=== PATIENT | male | born 1935 | race Caucasian/White ===

== ENCOUNTER 2017-11-08 05:04 | Emergency (ER) | payer MEDICARE, OTHER ==
[2017-11-08 05:24] VITALS: TEMP 97.5
--- NOTE | 2017-11-08 05:41 | ED PDOC ---
HPI: Male Pain Time Seen by Provider: 11/08/17 05:19 Chief Complaint (Nursing): Male Genitourinary Chief Complaint (Provider): Urinary Retention History Per: Patient History/Exam Limitations: no limitations Onset/Duration Of Symptoms: Days (x2) Current Symptoms Are (Timing): Still Present Additional Complaint(s): 82 y/o Italian male with a past medical history of HTN, who presents to the ED complaining of urinary retention x2 days. Patient states he has been unable to urinate since yesterday afternoon. Says he was only able to produce a few drops at 11pm. Also states he has been constipated for 3 days and unable to have a bowel movement. Reports a sense of urinary urgency and distention to his lower abdomen. Denies vomiting, diarrhea, cough, shortness of breath, or chest pain. Past Medical History Reviewed: Historical Data, Nursing Documentation, Vital Signs Vital Signs: Last Vital Signs Temp 97.5 F L 11/08/17 05:18 Pulse 85 11/08/17 05:18 Resp 18 11/08/17 05:18 BP 218/119 H 11/08/17 05:18 Pulse Ox 99 11/08/17 05:18 - Medical History PMH: HTN Denies: Diabetes - Surgical History Surgical History: Appendectomy - Family History Family History: States: No Known Family Hx - Social History Current smoker - smoking cessation education provided: No Alcohol: None Drugs: Denies - Home Medications Home Medications: Ambulatory Orders Medication Instructions Recorded Methylprednisolone [Medrol Dose 4 mg PO DAILY #21 tab 11/03/15 Pack (21 tabs)] diaZEpam [Valium] 5 mg PO Q8 #10 tab 11/03/15 Docusate Sodium [Colace] 100 mg PO BID #30 capsule 11/08/17 - Allergies Allergies/Adverse Reactions: Allergies Allergy/AdvReac Type Severity Reaction Status Date / Time No Known Allergies Allergy Verified 11/08/17 05:18 Review of Systems ROS Statement: Except As Marked, All Systems Reviewed And Found Negative Cardiovascular: Negative for: Chest Pain Respiratory: Negative for: Cough, Shortness of Breath Gastrointestinal: Positive for: Abdominal Pain, Constipation. Negative for: Vomiting, Diarrhea Genitourinary Male: Positive for: Other (urinary retention) Physical Exam - Reviewed Nursing Documentation Reviewed: Yes Vital Signs Reviewed: Yes - Physical Exam Appears: Positive for: Non-toxic, No Acute Distress, Uncomfortable Head Exam: Positive for: ATRAUMATIC, NORMAL INSPECTION, NORMOCEPHALIC Skin: Positive for: Normal Color, Warm, Dry. Negative for: Rash Eye Exam: Positive for: EOMI, Normal appearance, PERRL Neck: Positive for: Normal, Painless ROM, Supple Cardiovascular/Chest: Positive for: Regular Rate, Rhythm. Negative for: Murmur Respiratory: Positive for: Normal Breath Sounds. Negative for: Respiratory Distress Gastrointestinal/Abdominal: Positive for: Tenderness (superpubic), Distended ( superpubic) Back: Positive for: Normal Inspection. Negative for: L CVA Tenderness, R CVA Tenderness, Vertebral Tenderness Extremity: Positive for: Normal ROM. Negative for: Pedal Edema, Deformity Neurologic/Psych: Positive for: Alert, Oriented. Negative for: Motor/Sensory Deficits - Laboratory Results Result Diagrams: 11/08/17 05:41 11/08/17 05:41 - ECG O2 Sat by Pulse Oximetry: 99 (RA) Pulse Ox Interpretation: Normal Medical Decision Making Medical Decision Making: Time: 05:25 Initial Impression: 82 y/o male with urinary retention in setting of constipation Initial Plan: --EKG --CMP --Urine dipstick --CBC w/ differential --PTT/PT --X-Ray Abdomen w/ Chest --Heplock insertion --Jackson catheter --Urinalysis --Reevaluation Time: 07:00 Patient signed out to Dr. Balderrama pending labs and reevaluation. Scribe Attestation: Documented by Xu Ramsey, acting as a scribe for Vladimir Liu MD. Provider Scribe Attestation: All medical record entries made by the Scribe were at my direction and personally dictated by me. I have reviewed the chart and agree that the record accurately reflects my personal performance of the history, physical exam, medical decision making, and the department course for this patient. I have also personally directed, reviewed, and agree with the discharge instructions and disposition. Disposition - Clinical Impression Clinical Impression: Constipation, Urinary retention - Patient ED Disposition Is Patient to be Admitted: Transfer of Care - Disposition Referrals: Caroline Shearer MD [Medical Doctor] - Disposition: Transfer of Care Disposition Time: 07:00 Condition: IMPROVED Additional Instructions: Follow up with urologist within 5 days. Take your medications as home. Prescriptions: Docusate Sodium [Colace] 100 mg PO BID #30 capsule Instructions: Constipation, Adult (DC), Urinary Retention (DC) Patient Signed Over To: Camryn Balderrama Handoff Comments: pending labs and reeval
[2017-11-08 06:13] LABS: ALB/GLOB RATIO 1.2 (1.0-2.1); ALBUMIN 4.5 g/dL (3.5-5.0); ALT/SGPT 30 U/L (21-72); AST/SGOT 32 U/L (17-59); BLOOD UREA NITROGEN 22 mg/dl (9-20); CALCIUM 9.5 mg/dL (8.4-10.2); GFR AFRICAN-AMERICAN > 60; GFR NON-AFRICAN AMERICAN 58
[2017-11-08 06:17] LABS: URINE BACTERIA RARE (<OCC); URINE BILIRUBIN NEGATIVE (NEGATIVE); URINE BLOOD MODERATE (NEGATIVE); URINE CLARITY CLEAR (Clear); URINE COLOR YELLOW (YELLOW); URINE GLUCOSE (UA) NEG (Normal); URINE LEUKOCYTE ESTERASE NEG Leu/uL (Negative); URINE PROTEIN 30 mg/dL (NEGATIVE); URINE UROBILINOGEN 0.2-1.0 mg/dL (0.2-1.0)
[2017-11-08 06:18] LABS: PARTIAL THROMBOPLASTIN TIME 30.1 Seconds (25.6-37.1); PROTHROMBIN TIME 11.6 Seconds (9.8-13.1)
[2017-11-08 06:44] LABS: BASO % 0.4 % (0.0-2.0); EOS % 0.1 % (0.0-4.0); HEMOGLOBIN 12.4 g/dL (12.0-18.0); LYMPH # 0.8 K/uL (1.0-4.3); LYMPH % 8.7 % (20.0-40.0); MEAN CELL VOLUME 110.6 fl (80.0-94.0); MEAN CORPUSCULAR HGB CONC 35.3 g/dL (33.0-37.0); MEAN PLATELET VOLUME 9.9 fl (7.2-11.7); MONO # 0.6 K/uL (0.0-0.8); MONO % 5.7 % (0.0-10.0); NEUT # 8.2 K/uL (1.8-7.0); NEUT % 85.1 % (50.0-75.0); NRBC % 0.1 % (0.0-0.0); PLATELET COUNT 178 K/uL (130-400); RBC 3.19 Mil/uL (4.40-5.90); RED CELL DISTRIBUTION WIDTH 14.5 % (11.5-14.5); WHITE BLOOD COUNT 9.7 K/uL (4.8-10.8)
--- NOTE | 2017-11-08 07:19 | ED PDOC ---
- Laboratory Results Result Diagrams: 11/08/17 05:41 11/08/17 05:41 - ECG O2 Sat by Pulse Oximetry: 98 (RA) Pulse Ox Interpretation: Normal Medical Decision Making Medical Decision Making: Time: 7:00 Patient endorsed to me by Dr. Vladimir Liu at this time, pending labs, x-ray, and reevaluation. Time: 09:08 EXAM: Abdomen X-Ray FINDINGS: BOWEL: Two frontal supine views of the abdomen were performed. There is no evidence of bowel dilatation to suggest bowel obstruction. Residual scattered areas of fecal material are identified. Surgical clips are seen in the right lower quadrant. Degenerative changes are seen in the spine. No obvious free air or bowel wall thickening is noted. Lung bases are unremarkable. BONES: See above OTHER FINDINGS: None. IMPRESSION: No evidence of bowel obstruction. 12:00pm Patient had a large bowel movement after enema given in the ED. Patient stable for discharge home. Given prescription for Colace and referral to urologist. Counseled regarding diagnoses and the need for follow up with urology within 5 days. Patient is agreeable and understanding of discharge plan. Scribe Attestation: Documented by Rhiannon Danielle, acting as a scribe for Camryn Balderrama MD Provider Scribe Attestation: All medical record entries made by the Scribe were at my direction and personally dictated by me. I have reviewed the chart and agree that the record accurately reflects my personal performance of the history, physical exam, medical decision making, and the department course for this patient. I have also personally directed, reviewed, and agree with the discharge instructions and disposition. Disposition Counseled Patient/Family Regarding: Studies Performed, Diagnosis, Need For Followup - Clinical Impression Clinical Impression: Constipation, Urinary retention - POA Present On Arrival: None - Disposition Referrals: Caroline Shearer MD [Medical Doctor] - Disposition: Routine/Home Disposition Time: 12:00 Condition: GOOD Additional Instructions: Follow up with urologist within 5 days. Take your medications as home. Prescriptions: Docusate Sodium [Colace] 100 mg PO BID #30 capsule Instructions: Constipation, Adult (DC), Urinary Retention (DC)
[2017-11-08 07:40] VITALS: RESP 17
--- NOTE | 2017-11-08 09:07 | CARD ---
APPROVED REPORT EKG Measurement Heart [id number] CT [id number] <Conclusion> Sinus tachycardia with premature supraventricular complexes Incomplete right bundle branch block Borderline ECG
--- NOTE | 2017-11-08 09:09 | RAD ---
HISTORY: constipation COMPARISON: No prior. FINDINGS: BOWEL: Two frontal supine views of the abdomen were performed. There is no evidence of bowel dilatation to suggest bowel obstruction. Residual scattered areas of fecal material are identified. Surgical clips are seen in the right lower quadrant. Degenerative changes are seen in the spine. No obvious free air or bowel wall thickening is noted. Lung bases are unremarkable. BONES: See above OTHER FINDINGS: None. IMPRESSION: No evidence of bowel obstruction.
[2017-11-08 11:26] VITALS: BP 142/71; PULSE 86
[2017-11-08 11:52] LABS: LYMPHOCYTE 6 % (20-50); MONOCYTE 5 % (0-10); NEUTROPHIL 89 % (42-75); PLATELET ESTIMATE NORMAL (NORMAL); TOTAL CELLS COUNTED 100
[2017-11-08 11:54] LABS: LARGE PLATELETS PRESENT
[2017-11-09 22:24] VITALS: O2SAT 99
== END 2017-11-08 12:15 | disposition home or self-care (01) ==
LOC: H.ER 05:04
DX: K59.00 Constipation, unspecified (principal); R33.9 Retention of urine, unspecified; I10 Essential (primary) hypertension

== ENCOUNTER 2018-07-06 08:28 | Inpatient (IN) | payer MEDICARE, OTHER ==
--- NOTE | 2018-07-06 08:53 | ED PDOC ---
HPI: Abdomen Time Seen by Provider: 07/06/18 08:42 Chief Complaint (Nursing): Abdominal Pain History Per: Patient Onset/Duration Of Symptoms: Days (1) Current Symptoms Are (Timing): Still Present Severity: Mild Location Of Pain/Discomfort: RLQ Quality Of Discomfort: Unable To Describe Associated Symptoms: denies: Fever, Nausea, Vomiting, Diarrhea, Urinary Symptoms Exacerbating Factors: None Alleviating Factors: None Additional Complaint(s): RLQ abd pain since last night. Was constipated, took Colace, has had BM but still feels need to go. Denies fever, vomiting or bloody stool. Denies urinary sxs. Past Medical History Vital Signs: Last Vital Signs Temp 97 F L 07/06/18 08:36 Pulse 86 07/06/18 08:36 Resp BP 178/97 H 07/06/18 08:36 Pulse Ox 95 07/06/18 08:36 - Medical History PMH: HTN Denies: Diabetes - Surgical History Surgical History: Appendectomy - Family History Family History: States: Unknown Family Hx - Allergies Allergies/Adverse Reactions: Allergies Allergy/AdvReac Type Severity Reaction Status Date / Time No Known Allergies Allergy Verified 07/06/18 08:40 Review of Systems ROS Statement: Except As Marked, All Systems Reviewed And Found Negative Constitutional: Negative for: Fever Gastrointestinal: Positive for: Abdominal Pain Physical Exam - Reviewed Nursing Documentation Reviewed: Yes Vital Signs Reviewed: Yes - Physical Exam Appears: Positive for: Non-toxic, No Acute Distress Head Exam: Positive for: ATRAUMATIC, NORMAL INSPECTION, NORMOCEPHALIC Skin: Positive for: Normal Color, Warm, DRY Eye Exam: Positive for: EOMI, Normal appearance, PERRL ENT: Positive for: Normal ENT Inspection Neck: Positive for: Normal, Painless ROM Cardiovascular/Chest: Positive for: Regular Rate, Rhythm Respiratory: Positive for: CNT, Normal Breath Sounds Gastrointestinal/Abdominal: Positive for: Soft, Tenderness (RLQ) Back: Positive for: Normal Inspection Extremity: Positive for: Normal ROM Neurologic/Psych: Positive for: Alert, Oriented - Laboratory Results Result Diagrams: 07/06/18 08:55 07/06/18 08:55 - ECG O2 Sat by Pulse Oximetry: 95 Disposition - Clinical Impression Clinical Impression: Renal cyst, Hydronephrosis - Patient ED Disposition Is Patient to be Admitted: Yes - Disposition Disposition Time: 12:43 Condition: FAIR Forms: [employer] (M[place]itanian) - Pt Status Changed To: Hospital Disposition Of: Observation - POA Present On Arrival: None
[2018-07-06 09:19] LABS: BASO % 0.2 % (0.0-2.0); HEMOGLOBIN 12.2 g/dL (12.0-18.0); LYMPH # 0.5 K/uL (1.0-4.3); LYMPH % 3.8 % (20.0-40.0); MEAN CELL VOLUME 113.9 fl (80.0-94.0); MEAN CORPUSCULAR HEMOGLOBIN 41.1 pg (27.0-31.0); MEAN CORPUSCULAR HGB CONC 36.1 g/dL (33.0-37.0); MEAN PLATELET VOLUME 8.8 fl (7.2-11.7); MONO # 0.9 K/uL (0.0-0.8); MONO % 6.3 % (0.0-10.0); NEUT # 12.4 K/uL (1.8-7.0); NEUT % 89.7 % (50.0-75.0); NRBC % 0.1 % (0.0-0.0); PLATELET COUNT 263 K/uL (130-400); RBC 2.97 Mil/uL (4.40-5.90); RED CELL DISTRIBUTION WIDTH 14.7 % (11.5-14.5); WHITE BLOOD COUNT 13.8 K/uL (4.8-10.8)
[2018-07-06 09:20] LABS: ALB/GLOB RATIO 1.2 (1.0-2.1); ALBUMIN 4.6 g/dL (3.5-5.0); CALCIUM 9.1 mg/dL (8.4-10.2)
[2018-07-06 11:13] LABS: BANDS 1 % (0-2); LYMPHOCYTE 5 % (20-50); MONOCYTE 6 % (0-10); NEUTROPHIL 88 % (42-75); PLATELET ESTIMATE NORMAL (NORMAL); TOTAL CELLS COUNTED 100
[2018-07-06 11:17] LABS: ANISOCYTOSIS SLIGHT; HYPOCHROMIC SLIGHT; POLYCHROMIC SLIGHT
--- NOTE | 2018-07-06 11:48 | CT ---
Date of service: 07/06/2018 PROCEDURE: CT Abdomen and Pelvis without intravenous contrast HISTORY: r/o kidney stone COMPARISON: None. TECHNIQUE: CT scan of the abdomen and pelvis was performed without administration of intravenous contrast. Oral contrast was not administered. Coronal and sagittal reformatted images were obtained. . Radiation dose: Total exam DLP = 503.09 mGy-cm. This CT exam was performed using one or more of the following dose reduction techniques: Automated exposure control, adjustment of the mA and/or kV according to patient size, and/or use of iterative reconstruction technique. FINDINGS: LOWER THORAX: There is dependent atelectasis in the lung bases. Mild cardiomegaly and small pericardial effusion. LIVER: Normal in size. No intrahepatic ductal dilatation. GALLBLADDER AND BILE DUCTS: No calcified gallstones. No biliary dilatation PANCREAS: Normal in size. No ductal dilatation. SPLEEN: Normal in size. ADRENALS: Normal in size. No discrete nodule. KIDNEYS AND URETERS: Mild renal cortical atrophy. There is mild bilateral hydronephrosis and dilatation of the ureteral without obstructing stone, likely related to over distended urinary bladder. There are multiple simple cortical cysts in the right kidney, the largest in the lower pole measures 9.7 x 8.7 cm. There is a 1.4 x 1.6 cm well-circumscribed round hyperdense lesion in the upper pole of the left kidney. VASCULATURE: No aortic aneurysm. There are aortic atherosclerotic calcification present. BOWEL: There is fecalization of small bowel contents. The small bowel loops are normal in caliber. There is moderate amount of stool in the colon and fecal stasis in the rectum. No bowel dilatation or obstruction. APPENDIX: Normal appendix. PERITONEUM: No free fluid. No free air. LYMPH NODES: No enlarged lymph nodes. BLADDER: Over distended and grossly normal in appearance. REPRODUCTIVE: There is moderate enlargement of the prostate gland. BONES: No acute fracture. There is diffuse bone demineralization and multilevel degenerative changes in the spine. OTHER FINDINGS: There is a small sliding hiatal hernia. There are bilateral small fat containing inguinal hernias. IMPRESSION: 1. No acute abdominal or pelvic abnormality. 2. Constipation and fecalization of normal caliber small bowel contents likely related to chronic stasis. No bowel obstruction. 3. Mild hydronephrosis and diffuse dilatation of both ureters likely related to an over distended urinary bladder. Multiple large simple cortical cysts in the left kidney, the largest in the lower pole measures 9.7 x 0.7 cm. No evidence of nephrolithiasis or obstructive uropathy. 4. 1.4 x 1.6 cm complicated cyst in the upper pole of the left kidney likely a hemorrhagic cyst however correlation with retroperitoneal ultrasound is recommended to exclude solid renal lesion. 5. Moderate enlargement of the prostate gland. Please correlate with PSA levels. 6. Small sliding hiatal hernia.
[2018-07-06 15:55] LABS: URINE BACTERIA RARE (<OCC); URINE BILIRUBIN NEGATIVE (NEGATIVE); URINE BLOOD LARGE (NEGATIVE); URINE CLARITY SLIGHTY-CLOUDY (Clear); URINE COLOR YELLOW (YELLOW); URINE GLUCOSE (UA) NEG (Normal); URINE PROTEIN NEGATIVE (NEGATIVE); URINE UROBILINOGEN 0.2-1.0 mg/dL (0.2-1.0)
[2018-07-06 15:57] LABS: URINE LEUKOCYTE ESTERASE TRACE Leu/uL (Negative)
[2018-07-06] MEDS: Sodium Chloride 0.9% 1,000 ML IV SCH (22:13)
[2018-07-07] MEDS ORDERED: Ergocalciferol 50,000 Intl Units Cap PO SCH (07:30)
[2018-07-07] MEDS: Ciprofloxacin 400mg/200ml D5W 400 MG/200 ML BAG IVPB SCH ×2 (09:10→21:01)
[2018-07-07] MEDS: Metoprolol Succinate 50 mg XL Tab PO SCH (09:27)
--- NOTE | 2018-07-07 13:38 | CP.PCM.CON ---
History of Present Illness - History of Present Illness History of Present Illness: Neurology Consultation Note: Mr. Burciaga is an 82-year-old man with a past medical history of HTN, HLD, who is currently being treated for a UTI and was found to have confusion. When I saw the patient, he did not really know where he was, what year it is and could not recall why he is here. Review of Systems - Review of Systems Systems not reviewed;Unavailable: Altered Mental Status Past Patient History - Past Medical History & Family History Past Medical History?: Yes - Past Social History Smoking Status: Never Smoked - CARDIAC Hx Cardiac Disorders: Yes Hx Hypertension: Yes - PULMONARY Hx Respiratory Disorders: No - NEUROLOGICAL Hx Neurological Disorder: No - HEENT Hx HEENT Problems: No - RENAL Hx Chronic Kidney Disease: No - ENDOCRINE/METABOLIC Hx Endocrine Disorders: No - HEMATOLOGICAL/ONCOLOGICAL Hx Blood Disorders: No - INTEGUMENTARY Hx Dermatological Problems: No - MUSCULOSKELETAL/RHEUMATOLOGICAL Hx Musculoskeletal Disorders: No Hx Falls: Yes - GASTROINTESTINAL Hx Gastrointestinal Disorders: No - GENITOURINARY/GYNECOLOGICAL Hx Genitourinary Disorders: No - PSYCHIATRIC Hx Psychophysiologic Disorder: No - SURGICAL HISTORY Hx Surgeries: No - ANESTHESIA Hx Anesthesia: No Hx Anesthesia Reactions: No Meds Allergies/Adverse Reactions: Allergies Allergy/AdvReac Type Severity Reaction Status Date / Time No Known Allergies Allergy Verified 07/06/18 08:40 - Medications Medications: Current Medications Acetaminophen (Tylenol 325mg Tab) 650 mg PO Q6 PRN PRN Reason: Pain, moderate (4-7) Aspirin (Ecotrin) 81 mg PO DAILY [facility]ATT Ergocalciferol (Drisdol 50,000 Intl Units Cap) 1 cap PO QWK [facility]ATT Ciprofloxacin (Cipro 400mg/200ml Dsw) 400 mg in 200 mls @ 200 mls/hr IVPB Q12 [facility]ATT; Protocol Last Admin: 07/07/18 09:10 Dose: 200 mls/hr Sodium Chloride (Sodium Chloride 0.9%) 1,000 mls @ 70 mls/hr IV .[id number] MATT Stop: 07/07/18 21:43 Last Admin: 07/06/18 22:13 Dose: 70 mls/hr Ketorolac Tromethamine (Toradol) 30 mg IVP Q6 PRN PRN Reason: Pain, severe (8-10) Last Admin: 07/06/18 22:26 Dose: 30 mg Losartan Potassium (Cozaar) 100 mg PO DAILY [facility] Last Admin: 07/07/18 09:27 Dose: Not Given Metoprolol Succinate (Toprol Xl) 50 mg PO DAILY [facility] Last Admin: 07/07/18 09:27 Dose: Not Given Ondansetron HCl (Zofran Inj) 4 mg IVP Q6 PRN PRN Reason: Nausea/Vomiting Tamsulosin HCl (Flomax) 0.4 mg PO QPM [facility] Physical Exam - Constitutional Appears: Well - Head Exam Head Exam: ATRAUMATIC, NORMAL INSPECTION, NORMOCEPHALIC - Eye Exam Eye Exam: EOMI, Normal appearance, PERRL - ENT Exam ENT Exam: Mucous Membranes Moist, Normal Exam - Neck Exam Neck exam: Positive for: Normal Inspection - Respiratory Exam Respiratory Exam: Clear to Auscultation Bilateral, NORMAL BREATHING PATTERN - Cardiovascular Exam Cardiovascular Exam: REGULAR RHYTHM, +S1, +S2 - GI/Abdominal Exam GI & Abdominal Exam: Normal Bowel Sounds, Soft. absent: Tenderness - Rectal Exam Rectal Exam: Deferred - Extremities Exam Extremities exam: Positive for: normal inspection - Back Exam Back exam: NORMAL INSPECTION - Neurological Exam Neurological exam: Abnormal Gait, Alert, Altered, CN II-XII Intact, Reflexes Normal Additional comments: Confused, but pleasant. Had 0/3 immediate recall. Could not complete subtraction tasks. - Psychiatric Exam Psychiatric exam: Normal Affect, Normal Mood - Skin Skin Exam: Dry, Intact, Normal Color, Warm Results - Vital Signs Recent Vital Signs: Last Vital Signs Temp 98.6 F 07/07/18 08:58 Pulse 69 07/07/18 09:27 Resp 20 07/07/18 08:58 BP 100/48 L 07/07/18 09:27 Pulse Ox 97 07/07/18 08:58 - Labs Result Diagrams: 07/06/18 08:55 07/06/18 08:55 Labs: Laboratory Results - last 24 hr 07/06/18 07/07/18 15:41 06:00 Prostate Specific Ag 9.44 H Urine Color Yellow Urine Clarity Slighty-cloudy Urine pH 6.0 Ur Specific [place] 1.012 Urine Protein Negative Urine Glucose (UA) Neg Urine Ketones Negative Urine Blood Large Urine Nitrate Negative Urine Bilirubin Negative Urine Urobilinogen 0.2-1.0 Ur Leukocyte Esterase Trace Urine RBC (Auto) 83 H Urine Microscopic WBC 11 H Urine Bacteria Rare Assessment & Plan (1) Acute encephalopathy Assessment and Plan: This could be due to baseline dementia with superimposed toxic-metabolic encephalopathy due to UTI. I recommend treating underlying cause and outpatient work-up for dementia with neurology. Will order non-contrast CT scan of the head for evaluation of possible vascular dementia or another overt lesion. Thank you for this consultation. Status: Acute
--- NOTE | 2018-07-07 14:42 | CT ---
Date of service: 07/07/2018 PROCEDURE: CT HEAD WITHOUT CONTRAST. HISTORY: dementia COMPARISON: None available. TECHNIQUE: Axial computed tomography images were obtained through the head/brain without intravenous contrast. Radiation dose: Total exam DLP = 887.59 mGy-cm. This CT exam was performed using one or more of the following dose reduction techniques: Automated exposure control, adjustment of the mA and/or kV according to patient size, and/or use of iterative reconstruction technique. FINDINGS: HEMORRHAGE: No intracranial hemorrhage. BRAIN: There are moderate chronic microangiopathic changes. There is no mass, mass effect or abnormal extra-axial fluid collection. There is no territorial infarction. The midline sagittal structures are normal. VENTRICLES: There is moderate age-related global parenchymal volume loss and proportionate enlargement of the ventricles and cortical sulci. CALVARIUM: There is no calvarial fracture or extracranial soft tissue swelling. PARANASAL SINUSES: There is mild polypoid mucosal thickening in the right maxillary sinus and a small retention cyst/polyp in the left anterior sphenoid chamber. The remaining included paranasal sinuses are clear. MASTOID AIR CELLS: Predominantly clear. OTHER FINDINGS: None. IMPRESSION: No acute intracranial abnormality. Moderate chronic microangiopathic changes and moderate age-related global parenchymal volume loss
[2018-07-07] MEDS: Sodium Chloride 0.9% 1,000 ML IV SCH ×2 (17:08→17:10)
--- NOTE | 2018-07-07 18:17 | CP.PCM.CON ---
History of Present Illness - History of Present Illness History of Present Illness: 82 yo [place] male with pmh/o HTN, hld, was admitted with cc/o lower abdominal discomfort for few days. pt is a poor historian, unable to get much history from pt, EHR reviewed and obtained . pt denies and cp, palpiattaion, n ausea, vomitings, fever, cough, sob, no edema of legs. pt was found to have elevated bun/cr and hydronephrosis and disteneded bladder. s/p underwood cath placement and drained about 750 ml immediately last night and drained another 650 ml from last night to this am, now urine is cluody and + gross hematuria Review of Systems - Review of Systems Review of Systems: low abdominal pain and discomfort - Constitutional Constitutional: As Per HPI - EENT Eyes: As Per HPI Ears: As Per HPI Nose/Mouth/Throat: As Per HPI - Cardiovascular Cardiovascular: As Per HPI - Respiratory Respiratory: As Per HPI - Gastrointestinal Gastrointestinal: As Per HPI - Genitourinary Genitourinary: Bladder Distension Additional comments: urinary retention + - Musculoskeletal Musculoskeletal: As Per HPI - Integumentary Integumentary: As Per HPI - Neurological Neurological: As Per HPI Additional comments: confusion - Endocrine Endocrine: As Per HPI - Hematologic/Lymphatic Hematologic: As Per HPI Past Patient History - Past Medical History & Family History Past Medical History?: Yes - Past Social History Smoking Status: Never Smoked - CARDIAC Hx Cardiac Disorders: Yes Hx Hypertension: Yes - PULMONARY Hx Respiratory Disorders: No - NEUROLOGICAL Hx Neurological Disorder: No - HEENT Hx HEENT Problems: No - RENAL Hx Chronic Kidney Disease: No - ENDOCRINE/METABOLIC Hx Endocrine Disorders: No - HEMATOLOGICAL/ONCOLOGICAL Hx Blood Disorders: No - INTEGUMENTARY Hx Dermatological Problems: No - MUSCULOSKELETAL/RHEUMATOLOGICAL Hx Musculoskeletal Disorders: No Hx Falls: Yes - GASTROINTESTINAL Hx Gastrointestinal Disorders: No - GENITOURINARY/GYNECOLOGICAL Hx Genitourinary Disorders: No - PSYCHIATRIC Hx Psychophysiologic Disorder: No - SURGICAL HISTORY Hx Surgeries: No - ANESTHESIA Hx Anesthesia: No Hx Anesthesia Reactions: No Meds Allergies/Adverse Reactions: Allergies Allergy/AdvReac Type Severity Reaction Status Date / Time No Known Allergies Allergy Verified 07/06/18 08:40 - Medications Medications: Current Medications Acetaminophen (Tylenol 325mg Tab) 650 mg PO Q6 PRN PRN Reason: Pain, moderate (4-7) Aspirin (Ecotrin) 81 mg PO DAILY [facility] Last Admin: 07/07/18 17:08 Dose: 81 mg Ergocalciferol (Drisdol 50,000 Intl Units Cap) 1 cap PO QWK [facility] Ciprofloxacin (Cipro 400mg/200ml Dsw) 400 mg in 200 mls @ 200 mls/hr IVPB Q12 [facility]; Protocol Last Admin: 07/07/18 09:10 Dose: 200 mls/hr Sodium Chloride (Sodium Chloride 0.9%) 1,000 mls @ 70 mls/hr IV .[id number] [facility] Stop: 07/07/18 21:43 Last Admin: 07/07/18 17:10 Dose: 70 mls/hr Ketorolac Tromethamine (Toradol) 30 mg IVP Q6 PRN PRN Reason: Pain, severe (8-10) Last Admin: 07/06/18 22:26 Dose: 30 mg Losartan Potassium (Cozaar) 100 mg PO DAILY [facility] Last Admin: 07/07/18 09:27 Dose: Not Given Metoprolol Succinate (Toprol Xl) 50 mg PO DAILY [facility] Last Admin: 07/07/18 09:27 Dose: Not Given Ondansetron HCl (Zofran Inj) 4 mg IVP Q6 PRN PRN Reason: Nausea/Vomiting Tamsulosin HCl (Flomax) 0.4 mg PO QPM [facility] Physical Exam - Constitutional Appears: Non-toxic, No Acute Distress, Confused - Head Exam Head Exam: ATRAUMATIC, NORMAL INSPECTION - Eye Exam Eye Exam: EOMI, Normal appearance, PERRL Pupil Exam: NORMAL ACCOMODATION - ENT Exam ENT Exam: Mucous Membranes Moist - Neck Exam Neck exam: Positive for: Full Rom, Normal Inspection - Respiratory Exam Respiratory Exam: Clear to Auscultation Bilateral, NORMAL BREATHING PATTERN - Cardiovascular Exam Cardiovascular Exam: REGULAR RHYTHM, +S1, +S2 - GI/Abdominal Exam GI & Abdominal Exam: Normal Bowel Sounds, Soft - Rectal Exam Rectal Exam: Deferred - Neurological Exam Neurological exam: Alert, CN II-XII Intact, Oriented x3 Results - Vital Signs Recent Vital Signs: Last Vital Signs Temp 98 F 07/07/18 16:20 Pulse 66 07/07/18 16:20 Resp 20 07/07/18 16:20 BP 93/51 L 07/07/18 16:20 Pulse Ox 99 07/07/18 16:20 - Labs Result Diagrams: 07/06/18 08:55 07/06/18 08:55 Labs: Laboratory Results - last 24 hr 07/07/18 06:00 Prostate Specific Ag 9.44 H - Imaging and Cardiology US - abdomen Status: Report reviewed by me CT scan - head Status: Report reviewed by me Assessment & Plan - Assessment and Plan (Free Text) Assessment: 82 yo [place] male with pmh/o Hypertension, HLD ? demntia was admitted with cc/o lower abd. discomfort/ pain with elevated bun/cr b/l hydroureteronephrosis, , bladder distention,menlarged prostate 1. B/L hydroureteronephrosis , most likley sec to bladder out let obstruction 2. Enlarged prostate, r/o BPH r/o prostate ca 3. R/o UTI check urine c/s urology consult , may need prostate bx and cystoscopy may need CBI c/w flomax c/w ivf 1/2 ns at 70-80 ml/hr check cbc, bmp in am Plan: as above
[2018-07-08 07:04] LABS: HEMOGLOBIN 8.9 g/dL (12.0-18.0); MEAN CELL VOLUME 110.1 fl (80.0-94.0); MEAN CORPUSCULAR HGB CONC 34.5 g/dL (33.0-37.0); RBC 2.35 Mil/uL (4.40-5.90); RED CELL DISTRIBUTION WIDTH 15.1 % (11.5-14.5); WHITE BLOOD COUNT 7.4 K/uL (4.8-10.8)
[2018-07-08] MEDS: Ciprofloxacin 400mg/200ml D5W 400 MG/200 ML BAG IVPB SCH ×2 (09:02→21:30)
[2018-07-08] MEDS: Metoprolol Succinate 50 mg XL Tab PO SCH (09:02)
--- NOTE | 2018-07-08 12:12 | CP.PCM.PN ---
Subjective - Date & Time of Evaluation Date of Evaluation: 07/08/18 Time of Evaluation: 12:12 - Subjective Subjective: pt is not in acute distress, no abd. pain, urine is clearing up no cp,no palpiatation, no nausea, no vomitings Objective - Vital Signs/Intake and Output Vital Signs (last 24 hours): Temp Pulse Resp BP Pulse Ox 98.3 F 67 19 115/61 99 07/08/18 08:03 07/08/18 09:02 07/08/18 08:03 07/08/18 09:02 07/08/18 08:03 Intake and Output: 07/08/18 07/08/18 06:59 18:59 Output Total 300 Balance -300 - Medications Medications: Current Medications Acetaminophen (Tylenol 325mg Tab) 650 mg PO Q6 PRN PRN Reason: Pain, moderate (4-7) Aspirin (Ecotrin) 81 mg PO DAILY [facility] Last Admin: 07/08/18 09:02 Dose: 81 mg Ergocalciferol (Drisdol 50,000 Intl Units Cap) 1 cap PO QWK [facility] Ciprofloxacin (Cipro 400mg/200ml Dsw) 400 mg in 200 mls @ 200 mls/hr IVPB Q12 [facility]; Protocol Last Admin: 07/08/18 09:02 Dose: 200 mls/hr Sodium Chloride (Sodium Chloride 0.9%) 1,000 mls @ 70 mls/hr IV .[id number] [facility] Stop: 07/09/18 12:05 Ketorolac Tromethamine (Toradol) 30 mg IVP Q6 PRN PRN Reason: Pain, severe (8-10) Last Admin: 07/06/18 22:26 Dose: 30 mg Losartan Potassium (Cozaar) 100 mg PO DAILY [facility] Last Admin: 07/08/18 09:02 Dose: 100 mg Metoprolol Succinate (Toprol Xl) 50 mg PO DAILY [facility] Last Admin: 07/08/18 09:02 Dose: 50 mg Ondansetron HCl (Zofran Inj) 4 mg IVP Q6 PRN PRN Reason: Nausea/Vomiting Tamsulosin HCl (Flomax) 0.4 mg PO QPM [facility] Last Admin: 07/07/18 18:57 Dose: 0.4 mg - Labs Labs: 07/08/18 06:00 07/08/18 06:00 - Constitutional Appears: Well, Non-toxic, No Acute Distress - Head Exam Head Exam: ATRAUMATIC, NORMAL INSPECTION, NORMOCEPHALIC - Eye Exam Eye Exam: EOMI, Normal appearance, PERRL Pupil Exam: NORMAL ACCOMODATION - ENT Exam ENT Exam: Mucous Membranes Moist - Neck Exam Neck Exam: Full ROM - Respiratory Exam Respiratory Exam: Clear to Ausculation Bilateral, NORMAL BREATHING PATTERN - Cardiovascular Exam Cardiovascular Exam: REGULAR RHYTHM, +S1, +S2 - GI/Abdominal Exam GI & Abdominal Exam: Soft, Normal Bowel Sounds - Rectal Exam Rectal Exam: Deferred - Neurological Exam Neurological Exam: Alert, Awake, CN II-XII Intact Additional comments: oriented x1-2 - Psychiatric Exam Psychiatric exam: Normal Mood - Skin Skin Exam: Normal Color, Warm Assessment and Plan - Assessment and Plan (Free Text) Assessment: 82 yo [place] male with pmh/o Hypertension, HLD ? demntia was admitted with cc/o lower abd. discomfort/ pain with elevated bun/cr b/l hydroureteronephrosis, , bladder distention,menlarged prostate 1. B/L hydroureteronephrosis , most likley sec to bladder out let obstruction 2. Enlarged prostate, r/o BPH r/o prostate ca 3. R/o UTI 4. Anemai ? lab error, repeat cbc, check stool for occult blood check urine c/s urology consult , may need prostate bx and cystoscopy c/w flomax c/w ivf 1/2 ns at 70-80 ml/hr check cbc, bmp in am
[2018-07-08] MEDS: Sodium Chloride 0.9% 1,000 ML IV SCH (12:27)
[2018-07-08 15:12] LABS: IRON 54 ug/dL (49-181)
[2018-07-08 15:21] LABS: % IRON SATURATION 28 % (20-55); TOTAL IRON BINDING CAPACITY 189 ug/dL (250-450)
[2018-07-08 20:04] LABS: HEMOGLOBIN 9.7 g/dL (12.0-18.0); MEAN CORPUSCULAR HEMOGLOBIN 38.6 pg (27.0-31.0); MEAN CORPUSCULAR HGB CONC 34.4 g/dL (33.0-37.0); RBC 2.53 Mil/uL (4.40-5.90); RED CELL DISTRIBUTION WIDTH 14.9 % (11.5-14.5); WHITE BLOOD COUNT 7.4 K/uL (4.8-10.8)
[2018-07-08 20:07] LABS: MEAN CELL VOLUME 112.3 fl (80.0-94.0)
[2018-07-09] MEDS: Sodium Chloride 0.9% 1,000 ML IV SCH ×2 (02:30→05:06)
[2018-07-09] MEDS: Ciprofloxacin 400mg/200ml D5W 400 MG/200 ML BAG IVPB SCH ×2 (09:23→22:13)
[2018-07-09] MEDS: Metoprolol Succinate 50 mg XL Tab PO SCH (09:24)
[2018-07-09 12:47] LABS: FOLATE 6.5 ng/mL
--- NOTE | 2018-07-09 18:25 | CP.PCM.PN ---
Subjective - Date & Time of Evaluation Date of Evaluation: 07/09/18 Time of Evaluation: 18:24 - Subjective Subjective: pt is feeling better, no sob, urine is clearing, good uop Objective - Vital Signs/Intake and Output Vital Signs (last 24 hours): Temp Pulse Resp BP Pulse Ox 97.5 F L 61 20 158/70 H 99 07/09/18 16:20 07/09/18 16:20 07/09/18 16:20 07/09/18 16:20 07/09/18 16:20 - Medications Medications: Current Medications Acetaminophen (Tylenol 325mg Tab) 650 mg PO Q6 PRN PRN Reason: Pain, moderate (4-7) Aspirin (Ecotrin) 81 mg PO DAILY [facility] Last Admin: 07/09/18 09:24 Dose: 81 mg Ergocalciferol (Drisdol 50,000 Intl Units Cap) 1 cap PO QWK [facility] Ciprofloxacin (Cipro 400mg/200ml Dsw) 400 mg in 200 mls @ 200 mls/hr IVPB Q12 [facility]; Protocol Last Admin: 07/09/18 09:23 Dose: 200 mls/hr Ketorolac Tromethamine (Toradol) 30 mg IVP Q6 PRN PRN Reason: Pain, severe (8-10) Last Admin: 07/06/18 22:26 Dose: 30 mg Losartan Potassium (Cozaar) 100 mg PO DAILY [facility] Last Admin: 07/09/18 09:24 Dose: 100 mg Metoprolol Succinate (Toprol Xl) 50 mg PO DAILY [facility] Last Admin: 07/09/18 09:24 Dose: 50 mg Ondansetron HCl (Zofran Inj) 4 mg IVP Q6 PRN PRN Reason: Nausea/Vomiting Tamsulosin HCl (Flomax) 0.4 mg PO QPM [facility] Last Admin: 07/09/18 17:19 Dose: 0.4 mg - Labs Labs: 07/08/18 18:36 07/08/18 06:00 - Constitutional Appears: Well, Non-toxic, No Acute Distress - Head Exam Head Exam: ATRAUMATIC, NORMAL INSPECTION - Eye Exam Eye Exam: EOMI, Normal appearance, PERRL Pupil Exam: NORMAL ACCOMODATION - ENT Exam ENT Exam: Mucous Membranes Moist - Neck Exam Neck Exam: Full ROM, Normal Inspection - Respiratory Exam Respiratory Exam: Clear to Ausculation Bilateral, NORMAL BREATHING PATTERN - Cardiovascular Exam Cardiovascular Exam: REGULAR RHYTHM, +S1, +S2 - GI/Abdominal Exam GI & Abdominal Exam: Soft, Normal Bowel Sounds - Rectal Exam Rectal Exam: Deferred - Extremities Exam Extremities Exam: Full ROM, Normal Inspection - Neurological Exam Neurological Exam: Alert, Awake, CN II-XII Intact Additional comments: oriented x1-2 - Skin Skin Exam: Normal Color, Warm Assessment and Plan - Assessment and Plan (Free Text) Assessment: 82 yo [place] male with pmh/o Hypertension, HLD ? demntia was admitted with cc/o lower abd. discomfort/ pain with elevated bun/cr b/l hydroureteronephrosis, , bladder distention,menlarged prostate 1. B/L hydroureteronephrosis , most likley sec to bladder out let obstruction 2. Enlarged prostate, r/o BPH r/o prostate ca 3. R/o UTI 4. Anemai ? lab error, urine c/s : no growth, h/h is stable urology consult , may need prostate bx and cystoscopy c/w flomax c/w ivf 1/2 ns at 70-80 ml/hr check cbc, bmp in am
--- NOTE | 2018-07-10 05:57 | CP.PCM.PCO ---
Assessment/Plan - Assessment and Plan (Free Text) Assessment: MD was called throughout the night due to patients agitation. Initially pt was treated with pain meds but pt continued to remained agitated. Subsequently treated with Ativan but patient remained agitated requiring at one point 4 nurses to hold him down. Pt was seen and examined by bedside, awake and alert and only oriented to name. Denies pain, but talks about "feeding the fish to catch them fishing." Pt was fighting off the nurses and trying to get out of bed. VS sig for elevated BP likely 2/2 to agitation. -1:1 obs was ordered for patient safety -additional haldol and ativan ordered -cont to monitor
[2018-07-10] MEDS: Ciprofloxacin 400mg/200ml D5W 400 MG/200 ML BAG IVPB SCH ×2 (10:36→21:56)
[2018-07-10] MEDS: Metoprolol Succinate 50 mg XL Tab PO SCH ×2 (10:37→15:58)
--- NOTE | 2018-07-10 10:51 | CP.PCM.CON ---
History of Present Illness - History of Present Illness History of Present Illness: pt is an 82 years old [place] male with past psychiatric history of early dementia and pmh/o HTN, hld, was admitted with cc/o lower abdominal discomfort for few days. 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, recently there is gradual decline of memory with episodes of sundowning in the afternoon, no previous episodes of agitation or irritability pt at current time reported by staff to have episodes of irritability, combative with care on reviewing the chart patient has UTI Past Patient History - Past Medical History & Family History Past Medical History?: Yes - Past Social History Smoking Status: Never Smoked - CARDIAC Hx Cardiac Disorders: Yes Hx Hypertension: Yes - PULMONARY Hx Respiratory Disorders: No - NEUROLOGICAL Hx Neurological Disorder: No - HEENT Hx HEENT Problems: No - RENAL Hx Chronic Kidney Disease: No - ENDOCRINE/METABOLIC Hx Endocrine Disorders: No - HEMATOLOGICAL/ONCOLOGICAL Hx Blood Disorders: No - INTEGUMENTARY Hx Dermatological Problems: No - MUSCULOSKELETAL/RHEUMATOLOGICAL Hx Musculoskeletal Disorders: No Hx Falls: Yes - GASTROINTESTINAL Hx Gastrointestinal Disorders: No - GENITOURINARY/GYNECOLOGICAL Hx Genitourinary Disorders: No - PSYCHIATRIC Hx Psychophysiologic Disorder: No - SURGICAL HISTORY Hx Surgeries: No - ANESTHESIA Hx Anesthesia: No Hx Anesthesia Reactions: No Meds Allergies/Adverse Reactions: Allergies Allergy/AdvReac Type Severity Reaction Status Date / Time No Known Allergies Allergy Verified 07/06/18 08:40 - Medications Medications: Current Medications Acetaminophen (Tylenol 325mg Tab) 650 mg PO Q6 PRN PRN Reason: Pain, moderate (4-7) Aspirin (Ecotrin) 81 mg PO DAILY [facility] Last Admin: 07/09/18 09:24 Dose: 81 mg Ergocalciferol (Drisdol 50,000 Intl Units Cap) 1 cap PO QWK [facility] Ciprofloxacin (Cipro 400mg/200ml Dsw) 400 mg in 200 mls @ 200 mls/hr IVPB Q12 [facility]; Protocol Last Admin: 07/09/18 22:13 Dose: 200 mls/hr Ketorolac Tromethamine (Toradol) 30 mg IVP Q6 PRN PRN Reason: Pain, severe (8-10) Last Admin: 07/10/18 02:09 Dose: 30 mg Losartan Potassium (Cozaar) 100 mg PO DAILY [facility] Last Admin: 07/09/18 09:24 Dose: 100 mg Metoprolol Succinate (Toprol Xl) 50 mg PO DAILY [facility] Last Admin: 07/09/18 09:24 Dose: 50 mg Ondansetron HCl (Zofran Inj) 4 mg IVP Q6 PRN PRN Reason: Nausea/Vomiting Tamsulosin HCl (Flomax) 0.4 mg PO QPM [facility] Last Admin: 07/09/18 17:19 Dose: 0.4 mg Results - Vital Signs Recent Vital Signs: Last Vital Signs Temp 97.8 F 07/10/18 00:07 Pulse 68 07/10/18 00:45 Resp 20 07/10/18 00:07 BP 185/92 H 07/10/18 00:45 Pulse Ox 99 07/10/18 00:07 - Labs Result Diagrams: 07/08/18 18:36 07/08/18 06:00 Labs: Laboratory Results - last 24 hr 07/08/18 14:07 Folate 6.5 Assessment & Plan - Assessment and Plan (Free Text) Assessment: HYPERACTIVE DELIRIUM Plan: recommend starting haldol 0.5mg po q6 prn for agitation if refuses IM recommend start ativan 1mg po q6 prn for anxiety if refuses IM recommend start benadryl 25mg po q6 prn for EPS if refuses give IM start risperidone mtab 0.5mg q12
--- NOTE | 2018-07-10 11:31 | CP.PCM.PN ---
Subjective - Date & Time of Evaluation Date of Evaluation: 07/10/18 Time of Evaluation: 11:30 - Subjective Subjective: pt denies any complaints, no abd. pain, confused ? dementia Objective - Vital Signs/Intake and Output Vital Signs (last 24 hours): Temp Pulse Resp BP Pulse Ox 97.8 F 68 20 185/92 H 99 07/10/18 00:07 07/10/18 00:45 07/10/18 00:07 07/10/18 00:45 07/10/18 00:07 - Medications Medications: Current Medications Acetaminophen (Tylenol 325mg Tab) 650 mg PO Q6 PRN PRN Reason: Pain, moderate (4-7) Aspirin (Ecotrin) 81 mg PO DAILY [facility] Last Admin: 07/10/18 10:37 Dose: Not Given Ergocalciferol (Drisdol 50,000 Intl Units Cap) 1 cap PO QWK [facility] Ciprofloxacin (Cipro 400mg/200ml Dsw) 400 mg in 200 mls @ 200 mls/hr IVPB Q12 [facility]; Protocol Last Admin: 07/10/18 10:36 Dose: 200 mls/hr Ketorolac Tromethamine (Toradol) 30 mg IVP Q6 PRN PRN Reason: Pain, severe (8-10) Last Admin: 07/10/18 02:09 Dose: 30 mg Losartan Potassium (Cozaar) 100 mg PO DAILY [facility] Last Admin: 07/10/18 10:37 Dose: Not Given Metoprolol Succinate (Toprol Xl) 50 mg PO DAILY [facility] Last Admin: 07/10/18 10:37 Dose: Not Given Ondansetron HCl (Zofran Inj) 4 mg IVP Q6 PRN PRN Reason: Nausea/Vomiting Tamsulosin HCl (Flomax) 0.4 mg PO QPM [facility] Last Admin: 07/09/18 17:19 Dose: 0.4 mg - Labs Labs: 07/08/18 18:36 07/08/18 06:00 - Constitutional Appears: Well, Non-toxic, No Acute Distress - Head Exam Head Exam: ATRAUMATIC, NORMAL INSPECTION - Eye Exam Eye Exam: EOMI, Normal appearance, PERRL Pupil Exam: NORMAL ACCOMODATION - ENT Exam ENT Exam: Mucous Membranes Moist - Neck Exam Neck Exam: Full ROM - Respiratory Exam Respiratory Exam: Clear to Ausculation Bilateral, NORMAL BREATHING PATTERN - Cardiovascular Exam Cardiovascular Exam: REGULAR RHYTHM, +S1 - GI/Abdominal Exam GI & Abdominal Exam: Soft, Normal Bowel Sounds - Rectal Exam Rectal Exam: Deferred - Extremities Exam Additional comments: no edema of legs Assessment and Plan - Assessment and Plan (Free Text) Assessment: 82 yo [place] male with pmh/o Hypertension, HLD ? demntia was admitted with cc/o lower abd. discomfort/ pain with elevated bun/cr b/l hydroureteronephrosis, , bladder distention,enlarged prostate 1. B/L hydroureteronephrosis , most likley sec to bladder out let obstruction 2. Enlarged prostate, r/o BPH r/o prostate ca 3. R/o UTI 4. Anemai ? lab error, urine c/s : no growth, h/h is stable follow up with urology, may need prostate bx and cystoscopy c/w flomax c/w ivf 1/2 ns at 70-80 ml/h renal function improved, s.cr 1.0 will f/u as needed
[2018-07-10 12:19] LABS: BLOOD UREA NITROGEN 18 mg/dl (9-20); CALCIUM 8.5 mg/dL (8.4-10.2); GFR NON-AFRICAN AMERICAN > 60
[2018-07-11] MEDS ORDERED: Labetalol 5mg/ml (4ml) IVP STA (00:56)
[2018-07-11] MEDS: Ciprofloxacin 400mg/200ml D5W 400 MG/200 ML BAG IVPB SCH ×2 (10:34→22:08)
[2018-07-11] MEDS: Metoprolol Succinate 50 mg XL Tab PO SCH (10:35)
[2018-07-12] MEDS: Ciprofloxacin 400mg/200ml D5W 400 MG/200 ML BAG IVPB SCH (08:44)
[2018-07-12] MEDS: Metoprolol Succinate 50 mg XL Tab PO SCH (08:45)
[2018-07-12 10:58] LABS: MEAN CELL VOLUME 113.5 fl (80.0-94.0); MEAN CORPUSCULAR HEMOGLOBIN 41.9 pg (27.0-31.0); MEAN CORPUSCULAR HGB CONC 36.9 g/dL (33.0-37.0); RBC 2.37 Mil/uL (4.40-5.90); RED CELL DISTRIBUTION WIDTH 14.7 % (11.5-14.5); WHITE BLOOD COUNT 6.7 K/uL (4.8-10.8)
--- NOTE | 2018-07-12 10:58 | CP.PCM.PN ---
Subjective - Date & Time of Evaluation Date of Evaluation: 07/12/18 Time of Evaluation: 10:55 - Subjective Subjective: URLOGY pt seen failed rerpeated voiding trials while on flomax. Will schedule cysto for evaluation Objective - Vital Signs/Intake and Output Vital Signs (last 24 hours): Temp Pulse Resp BP Pulse Ox 97.9 F 62 20 161/74 H 100 07/12/18 08:01 07/12/18 08:45 07/12/18 08:01 07/12/18 08:45 07/12/18 08:01 - Medications Medications: Current Medications Acetaminophen (Tylenol 325mg Tab) 650 mg PO Q6 PRN PRN Reason: Pain, moderate (4-7) Aspirin (Ecotrin) 81 mg PO DAILY [facility] Last Admin: 07/12/18 08:45 Dose: 81 mg Ergocalciferol (Drisdol 50,000 Intl Units Cap) 1 cap PO QWK [facility] Losartan Potassium (Cozaar) 100 mg PO DAILY [facility] Last Admin: 07/12/18 08:45 Dose: 100 mg Metoprolol Succinate (Toprol Xl) 50 mg PO DAILY [facility] Last Admin: 07/12/18 08:45 Dose: 50 mg Ondansetron HCl (Zofran Inj) 4 mg IVP Q6 PRN PRN Reason: Nausea/Vomiting Tamsulosin HCl (Flomax) 0.4 mg PO QPM [facility] Last Admin: 07/11/18 18:17 Dose: 0.4 mg - Labs Labs: 07/08/18 18:36 07/10/18 11:45
[2018-07-12 11:03] LABS: INR 1.1; PROTHROMBIN TIME 12.2 Seconds (9.8-13.1)
[2018-07-12 11:06] LABS: HEMOGLOBIN 9.9 g/dL (12.0-18.0); PARTIAL THROMBOPLASTIN TIME 30.4 Seconds (25.6-37.1)
[2018-07-12 11:31] LABS: ALBUMIN 3.1 g/dL (3.5-5.0); ALT/SGPT 24 U/L (21-72); AST/SGOT 26 U/L (17-59); BLOOD UREA NITROGEN 17 mg/dl (9-20); CALCIUM 8.4 mg/dL (8.4-10.2); GFR NON-AFRICAN AMERICAN 58
[2018-07-13] MEDS: Metoprolol Succinate 50 mg XL Tab PO SCH (09:35)
[2018-07-14] MEDS: Metoprolol Succinate 50 mg XL Tab PO SCH (10:18)
[2018-07-14 15:23] VITALS: BMI 25.7
--- NOTE | 2018-07-15 05:32 | CP.PCM.PCO ---
Assessment/Plan - Assessment and Plan (Free Text) Assessment: Pt seen and examined by bedside. Was treated with Haldol earlier for agitation, mild-moderate improvement post treatment. Pt was found to be pulling out lines, including his underwood. RN by bedside noted mosley color urine from underwood. Pt also endorsing pain at site. VS stable, elevated BP GEN: agitated at times Neuro: awake alert : no acute bleeding, edema or erythma noted, underwood in place draining bright red diluted blood. A/P: -bleeding likely 2/2 to iatrogenic trauma from pulling/tugging -IV fluids -repeat cbc in AM
[2018-07-15] MEDS ORDERED: Sodium Chloride 0.9% 500 ML IV SCH (05:45)
[2018-07-15 08:15] LABS: BASO # 0.1 K/uL (0.0-0.2); BASO % 0.5 % (0.0-2.0); EOS % 0.2 % (0.0-4.0); LYMPH # 0.9 K/uL (1.0-4.3); LYMPH % 7.7 % (20.0-40.0); MEAN CORPUSCULAR HEMOGLOBIN 42.4 pg (27.0-31.0); MEAN CORPUSCULAR HGB CONC 36.1 g/dL (33.0-37.0); MONO # 1.1 K/uL (0.0-0.8); MONO % 9.1 % (0.0-10.0); NEUT # 9.5 K/uL (1.8-7.0); NEUT % 82.5 % (50.0-75.0); NRBC % 0.1 % (0.0-0.0); PLATELET COUNT 239 K/uL (130-400); RBC 2.84 Mil/uL (4.40-5.90); WHITE BLOOD COUNT 11.6 K/uL (4.8-10.8)
[2018-07-15 08:30] LABS: MEAN CELL VOLUME 117.3 fl (80.0-94.0)
[2018-07-15] MEDS: Metoprolol Succinate 50 mg XL Tab PO SCH (10:28)
[2018-07-15 10:38] LABS: PLATELET ESTIMATE NORMAL (NORMAL)
[2018-07-15 10:44] LABS: NEUTROPHIL 85 % (42-75); TOTAL CELLS COUNTED 100
[2018-07-15 10:45] LABS: ANISOCYTOSIS SLIGHT; LYMPHOCYTE 6 % (20-50); MONOCYTE 9 % (0-10)
[2018-07-15 16:53] VITALS: BP 132/58; PULSE 64; RESP 18; TEMP 98.9; O2SAT 98
--- NOTE | 2018-07-19 14:41 | PQF ---
PROVIDER RESPONSE TEXT: Provider was unable to determine a response for this query. REVIEWER QUERY TEXT: Condition Necessitating Admission Please clarify the medical conditions and the associated clinical risk factors necessitating admissio n. ER: Renal cyst, hydronephrosis Neurology: Acute encephalopathy This could be due to baseline dementia with superimposed toxic-metab olic encephalopathy due to UTI. Urine CS no growth Renal: 1. B/L hydroureteronephrosis , most likley sec to bladder out let obstruction 2. Enlarged prostate, r/o BPH r/o prostate ca 3. R/o UTI 4. Anemia Psych :Hyperactive Delirium The patient's Clinical Indicators include: C/O RLQ abd pain since last night. CT Abdomen:: Constipation, Mild hydronephrosis , Renal Cysts, Moderate enlargement of the prostate g land Afebrile, WBC 13.8 L shift, Urine CS: No growth Query created by: Shelly Jerry on 07/12/2018 1:58 PM Electronically signed by: Joe Teran 07/19/2018 2:39 PM
--- NOTE | 2018-07-19 17:45 | CP.PCM.HP ---
History of Present Illness - History of Present Illness History of Present Illness: This is an 82 y/o [place], admitted for for progressive weakness and was found in the ground prob after a fall. He did not sustain any injury. He was noted recently to have rapid decline in mental functioning and noted to have slowed down a lot especially in responding to questions. He was unreliable due to lack of awareness of his condition. Iniitial labs showed slight anemia and elevated PSA, He complained of vague abdominal pain and CT scan of the abdoemn revelawed constipation, dilated ureters without stone, renal cyst and enlarged prostate. Present on Admission - Present on Admission Any Indicators Present on Admission: No History of DVT/PE: No History of Uncontrolled Diabetes: No Urinary Catheter: No Decubitus Ulcer Present: No Review of Systems - Neurological Neurological: Confusion, Lack of Coordination, Memory Loss - Psychiatric Psychiatric: Confusion, Memory Loss Past Patient History - Past Medical History & Family History Past Medical History?: Yes - Past Social History Smoking Status: Never Smoked - CARDIAC Hx Cardiac Disorders: Yes Hx Hypertension: Yes - PULMONARY Hx Respiratory Disorders: No - NEUROLOGICAL Hx Neurological Disorder: No - HEENT Hx HEENT Problems: No - RENAL Hx Chronic Kidney Disease: No - ENDOCRINE/METABOLIC Hx Endocrine Disorders: No - HEMATOLOGICAL/ONCOLOGICAL Hx Blood Disorders: No - INTEGUMENTARY Hx Dermatological Problems: No - MUSCULOSKELETAL/RHEUMATOLOGICAL Hx Musculoskeletal Disorders: No Hx Falls: Yes - GASTROINTESTINAL Hx Gastrointestinal Disorders: No - GENITOURINARY/GYNECOLOGICAL Hx Genitourinary Disorders: No - PSYCHIATRIC Hx Psychophysiologic Disorder: No - SURGICAL HISTORY Hx Surgeries: No - ANESTHESIA Hx Anesthesia: No Hx Anesthesia Reactions: No Meds Allergies/Adverse Reactions: Allergies Allergy/AdvReac Type Severity Reaction Status Date / Time No Known Allergies Allergy Verified 07/06/18 08:40 Physical Exam - Head Exam Head Exam: NORMAL INSPECTION - Eye Exam Eye Exam: Normal appearance - Respiratory Exam Respiratory Exam: Clear to Auscultation Bilateral, NORMAL BREATHING PATTERN - Cardiovascular Exam Cardiovascular Exam: REGULAR RHYTHM - GI/Abdominal Exam GI & Abdominal Exam: Normal Bowel Sounds - Neurological Exam Neurological exam: Altered, CN II-XII Intact Results - Vital Signs Recent Vital Signs: Last Vital Signs Temp 98.9 F 07/15/18 16:52 Pulse 64 07/15/18 16:52 Resp 18 07/15/18 16:52 BP 132/58 L 07/15/18 16:52 Pulse Ox 98 07/15/18 16:52 - Labs Result Diagrams: 07/15/18 06:40 07/12/18 10:49 Assessment & Plan (1) Dementia Status: Acute (2) Urinary retention Status: Acute (3) Acute encephalopathy Status: Acute (4) Constipation Status: Acute (5) Hydronephrosis Status: Acute (6) Renal cyst Status: Acute - Assessment and Plan (Free Text) Plan: Neuro eval blood test start Phys therapy subacute rehab urology MRI urine C and S stool occult blood
--- NOTE | 2018-07-19 18:01 | CP.PCM.PN ---
Subjective - Date & Time of Evaluation Date of Evaluation: 07/08/18 Time of Evaluation: 11:00 - Subjective Subjective: patient feels better Has poor appetite Has no fever Stays mostly in bed Objective - Vital Signs/Intake and Output Vital Signs (last 24 hours): Temp Pulse Resp BP Pulse Ox 98.9 F 64 18 132/58 L 98 07/15/18 16:52 07/15/18 16:52 07/15/18 16:52 07/15/18 16:52 07/15/18 16:52 - Labs Labs: 07/15/18 06:40 07/12/18 10:49 PT 12.2 Seconds (9.8-13.1) 07/12/18 10:49 INR 1.1 07/12/18 10:49 APTT 30.4 Seconds (25.6-37.1) 07/12/18 10:49 - Head Exam Head Exam: NORMAL INSPECTION - Eye Exam Eye Exam: Normal appearance - ENT Exam ENT Exam: Mucous Membranes Moist - Respiratory Exam Respiratory Exam: Clear to Ausculation Bilateral - Cardiovascular Exam Cardiovascular Exam: REGULAR RHYTHM - GI/Abdominal Exam GI & Abdominal Exam: Normal Bowel Sounds Assessment and Plan (1) Dementia Status: Acute (2) Urinary retention Status: Acute (3) Acute encephalopathy Status: Acute (4) Constipation Status: Acute (5) Hydronephrosis Status: Acute (6) Renal cyst Status: Acute - Assessment and Plan (Free Text) Plan: Con tmeds Cont tx Cont PT follow up with renal and urology
--- NOTE | 2018-07-19 18:03 | CP.PCM.PN ---
Subjective - Date & Time of Evaluation Date of Evaluation: 07/09/18 Time of Evaluation: 11:00 - Subjective Subjective: Patient remains stable Has no chest pain or SOB has some episodes of mild hematuria Objective - Vital Signs/Intake and Output Vital Signs (last 24 hours): Temp Pulse Resp BP Pulse Ox 98.9 F 64 18 132/58 L 98 07/15/18 16:52 07/15/18 16:52 07/15/18 16:52 07/15/18 16:52 07/15/18 16:52 - Labs Labs: 07/15/18 06:40 07/12/18 10:49 PT 12.2 Seconds (9.8-13.1) 07/12/18 10:49 INR 1.1 07/12/18 10:49 APTT 30.4 Seconds (25.6-37.1) 07/12/18 10:49 - Head Exam Head Exam: NORMAL INSPECTION - Eye Exam Eye Exam: Normal appearance - ENT Exam ENT Exam: Mucous Membranes Moist - Respiratory Exam Respiratory Exam: Clear to Ausculation Bilateral - Cardiovascular Exam Cardiovascular Exam: REGULAR RHYTHM - GI/Abdominal Exam GI & Abdominal Exam: Normal Bowel Sounds Assessment and Plan (1) Dementia Status: Acute (2) Urinary retention Status: Acute (3) Acute encephalopathy Status: Acute (4) Constipation Status: Acute (5) Hydronephrosis Status: Acute (6) Renal cyst Status: Acute - Assessment and Plan (Free Text) Plan: Cont meds Cont tx Cont PT Urology eval check cbc cmp
--- NOTE | 2018-07-19 18:05 | CP.PCM.PN ---
Subjective - Date & Time of Evaluation Date of Evaluation: 07/10/18 Time of Evaluation: 11:30 - Subjective Subjective: patient remains stable Has no chest pain or SOB Has no fever Had some PT Objective - Vital Signs/Intake and Output Vital Signs (last 24 hours): Temp Pulse Resp BP Pulse Ox 98.9 F 64 18 132/58 L 98 07/15/18 16:52 07/15/18 16:52 07/15/18 16:52 07/15/18 16:52 07/15/18 16:52 - Labs Labs: 07/15/18 06:40 07/12/18 10:49 PT 12.2 Seconds (9.8-13.1) 07/12/18 10:49 INR 1.1 07/12/18 10:49 APTT 30.4 Seconds (25.6-37.1) 07/12/18 10:49 - Head Exam Head Exam: NORMAL INSPECTION - Eye Exam Eye Exam: Normal appearance - ENT Exam ENT Exam: Mucous Membranes Moist - Respiratory Exam Respiratory Exam: Clear to Ausculation Bilateral - Cardiovascular Exam Cardiovascular Exam: REGULAR RHYTHM - Neurological Exam Neurological Exam: Awake - Psychiatric Exam Psychiatric exam: Normal Mood - Skin Skin Exam: Dry Assessment and Plan (1) Dementia Status: Acute (2) Urinary retention Status: Acute (3) Acute encephalopathy Status: Acute (4) Constipation Status: Acute (5) Hydronephrosis Status: Acute (6) Renal cyst Status: Acute - Assessment and Plan (Free Text) Plan: Cont meds Con ttx Cont PT Urology follow up
--- NOTE | 2018-07-19 18:07 | CP.PCM.PN ---
Subjective - Date & Time of Evaluation Date of Evaluation: 07/11/18 Time of Evaluation: 11:00 - Subjective Subjective: patient remains well Has no chest pain or SOB Afebrile Noted decrease in Hgb. Objective - Vital Signs/Intake and Output Vital Signs (last 24 hours): Temp Pulse Resp BP Pulse Ox 98.9 F 64 18 132/58 L 98 07/15/18 16:52 07/15/18 16:52 07/15/18 16:52 07/15/18 16:52 07/15/18 16:52 - Labs Labs: 07/15/18 06:40 07/12/18 10:49 PT 12.2 Seconds (9.8-13.1) 07/12/18 10:49 INR 1.1 07/12/18 10:49 APTT 30.4 Seconds (25.6-37.1) 07/12/18 10:49 - Head Exam Head Exam: NORMAL INSPECTION - Eye Exam Eye Exam: Normal appearance - ENT Exam ENT Exam: Mucous Membranes Moist - Respiratory Exam Respiratory Exam: Clear to Ausculation Bilateral - Cardiovascular Exam Cardiovascular Exam: REGULAR RHYTHM - GI/Abdominal Exam GI & Abdominal Exam: Soft - Neurological Exam Neurological Exam: Awake Assessment and Plan (1) Dementia Status: Acute (2) Urinary retention Status: Acute (3) Acute encephalopathy Status: Acute (4) Constipation Status: Acute (5) Hydronephrosis Status: Acute (6) Renal cyst Status: Acute (7) Abnormal PSA Status: Acute - Assessment and Plan (Free Text) Plan: Cont meds Cont tx follow up with Dr Blum possible cystoscopy tomorrow
--- NOTE | 2018-07-19 18:09 | CP.PCM.PN ---
Subjective - Date & Time of Evaluation Date of Evaluation: 07/12/18 Time of Evaluation: 15:20 - Subjective Subjective: Seen by Dr kimberly Cardona sebastián Shepard Has no fever Did some therapy but stays mostly in bed. Objective - Vital Signs/Intake and Output Vital Signs (last 24 hours): Temp Pulse Resp BP Pulse Ox 98.9 F 64 18 132/58 L 98 07/15/18 16:52 07/15/18 16:52 07/15/18 16:52 07/15/18 16:52 07/15/18 16:52 - Labs Labs: 07/15/18 06:40 07/12/18 10:49 PT 12.2 Seconds (9.8-13.1) 07/12/18 10:49 INR 1.1 07/12/18 10:49 APTT 30.4 Seconds (25.6-37.1) 07/12/18 10:49 - Head Exam Head Exam: NORMAL INSPECTION - Eye Exam Eye Exam: Normal appearance - ENT Exam ENT Exam: Mucous Membranes Moist - Respiratory Exam Respiratory Exam: Clear to Ausculation Bilateral - Cardiovascular Exam Cardiovascular Exam: REGULAR RHYTHM Assessment and Plan (1) Dementia Status: Acute (2) Urinary retention Status: Acute (3) Acute encephalopathy Status: Acute (4) Constipation Status: Acute (5) Hydronephrosis Status: Acute (6) Renal cyst Status: Acute (7) Abnormal PSA Status: Acute - Assessment and Plan (Free Text) Plan: Con tmeds Con ttx cont PT subacute rehab eval
--- NOTE | 2018-07-19 18:10 | CP.PCM.PN ---
Subjective - Date & Time of Evaluation Date of Evaluation: 07/13/18 Time of Evaluation: 10:00 - Subjective Subjective: Patient is stable Has no chest pain or SOB Afebrile Objective - Vital Signs/Intake and Output Vital Signs (last 24 hours): Temp Pulse Resp BP Pulse Ox 98.9 F 64 18 132/58 L 98 07/15/18 16:52 07/15/18 16:52 07/15/18 16:52 07/15/18 16:52 07/15/18 16:52 - Labs Labs: 07/15/18 06:40 07/12/18 10:49 PT 12.2 Seconds (9.8-13.1) 07/12/18 10:49 INR 1.1 07/12/18 10:49 APTT 30.4 Seconds (25.6-37.1) 07/12/18 10:49 - Head Exam Head Exam: NORMAL INSPECTION - Eye Exam Eye Exam: Normal appearance - ENT Exam ENT Exam: Mucous Membranes Moist - Respiratory Exam Respiratory Exam: Clear to Ausculation Bilateral - Cardiovascular Exam Cardiovascular Exam: REGULAR RHYTHM - GI/Abdominal Exam GI & Abdominal Exam: Soft, Normal Bowel Sounds Assessment and Plan (1) Dementia Status: Acute (2) Urinary retention Status: Acute (3) Acute encephalopathy Status: Acute (4) Constipation Status: Acute (5) Hydronephrosis Status: Acute (6) Renal cyst Status: Acute (7) Abnormal PSA Status: Acute - Assessment and Plan (Free Text) Plan: Con tmeds Cont tx Cont PT subacute rehab eval follow up with Neuro
--- NOTE | 2018-07-19 18:14 | CP.PCM.PN ---
Subjective - Date & Time of Evaluation Date of Evaluation: 07/14/18 Time of Evaluation: 11:00 - Subjective Subjective: patient is stable Has no chest pain or SOB Afebrile Did some therapy suggested doing TCU for rehab. Objective - Vital Signs/Intake and Output Vital Signs (last 24 hours): Temp Pulse Resp BP Pulse Ox 98.9 F 64 18 132/58 L 98 07/15/18 16:52 07/15/18 16:52 07/15/18 16:52 07/15/18 16:52 07/15/18 16:52 - Labs Labs: 07/15/18 06:40 07/12/18 10:49 PT 12.2 Seconds (9.8-13.1) 07/12/18 10:49 INR 1.1 07/12/18 10:49 APTT 30.4 Seconds (25.6-37.1) 07/12/18 10:49 - Head Exam Head Exam: NORMAL INSPECTION - Eye Exam Eye Exam: Normal appearance - ENT Exam ENT Exam: Mucous Membranes Moist - Respiratory Exam Respiratory Exam: Clear to Ausculation Bilateral - Cardiovascular Exam Cardiovascular Exam: REGULAR RHYTHM - GI/Abdominal Exam GI & Abdominal Exam: Normal Bowel Sounds Assessment and Plan (1) Dementia Status: Acute (2) Urinary retention Status: Acute (3) Acute encephalopathy Status: Acute (4) Constipation Status: Acute (5) Hydronephrosis Status: Acute (6) Renal cyst Status: Acute (7) Abnormal PSA Status: Acute - Assessment and Plan (Free Text) Plan: Cont meds Cont tx Cont PT subacute rehab
--- NOTE | 2018-07-19 18:17 | CP.PCM.DIS ---
Provider - Provider Date of Admission: 07/08/18 13:49 Attending physician: Joe Teran MD Time Spent in preparation of Discharge (in minutes): 30 Diagnosis - Discharge Diagnosis (1) Dementia Status: Acute (2) Urinary retention Status: Acute (3) Acute encephalopathy Status: Acute (4) Constipation Status: Acute (5) Hydronephrosis Status: Acute (6) Renal cyst Status: Acute (7) Abnormal PSA Status: Acute Hospital Course - Lab Results Lab Results: Micro Results 07/06/18 17:00 Urine,Catheterized Urine Culture - Final No Growth (<1,000 CFU/ML) Most Recent Lab Values WBC 11.6 K/uL (4.8-10.8) H D 07/15/18 06:40 RBC 2.84 Mil/uL (4.40-5.90) L 07/15/18 06:40 Hgb 12.0 g/dL (12.0-18.0) D 07/15/18 06:40 Hct 33.4 % (35.0-51.0) L 07/15/18 06:40 MCV 117.3 fl (80.0-94.0) H D 07/15/18 06:40 MCH 42.4 pg (27.0-31.0) H 07/15/18 06:40 MCHC 36.1 g/dL (33.0-37.0) 07/15/18 06:40 RDW 15.0 % (11.5-14.5) H 07/15/18 06:40 Plt Count 239 K/uL (130-400) 07/15/18 06:40 MPV 9.0 fl (7.2-11.7) 07/15/18 06:40 Neut % (Auto) 82.5 % (50.0-75.0) H 07/15/18 06:40 Lymph % (Auto) 7.7 % (20.0-40.0) L 07/15/18 06:40 [place] % (Auto) 9.1 % (0.0-10.0) 07/15/18 06:40 Eos % (Auto) 0.2 % (0.0-4.0) 07/15/18 06:40 Baso % (Auto) 0.5 % (0.0-2.0) 07/15/18 06:40 Neut # (Auto) 9.5 K/uL (1.8-7.0) H 07/15/18 06:40 Lymph # (Auto) 0.9 K/uL (1.0-4.3) L 07/15/18 06:40 [place] # (Auto) 1.1 K/uL (0.0-0.8) H 07/15/18 06:40 Eos # (Auto) 0.0 K/uL (0.0-0.7) 07/15/18 06:40 Baso # (Auto) 0.1 K/uL (0.0-0.2) 07/15/18 06:40 Neutrophils % (Manual) 85 % (42-75) H 07/15/18 06:40 Band Neutrophils % 1 % (0-2) 07/06/18 08:55 Lymphocytes % (Manual) 6 % (20-50) L 07/15/18 06:40 Monocytes % (Manual) 9 % (0-10) 07/15/18 06:40 Platelet Estimate Normal (NORMAL) 07/15/18 06:40 Polychromasia Slight 07/06/18 08:55 Hypochromasia (manual) Slight 07/06/18 08:55 Anisocytosis (manual) Slight 07/15/18 06:40 Macrocytosis (manual) Moderate 07/15/18 06:40 PT 12.2 Seconds (9.8-13.1) 07/12/18 10:49 INR 1.1 07/12/18 10:49 APTT 30.4 Seconds (25.6-37.1) 07/12/18 10:49 Sodium 141 mmol/l (132-148) 07/12/18 10:49 Potassium 3.9 MMOL/L (3.6-5.0) 07/12/18 10:49 Chloride 108 mmol/L (98-107) H 07/12/18 10:49 Carbon Dioxide 25 mmol/L (22-30) 07/12/18 10:49 Anion Gap 12 (10-20) 07/12/18 10:49 BUN 17 mg/dl (9-20) 07/12/18 10:49 Creatinine 1.2 mg/dl (0.8-1.5) 07/12/18 10:49 Est GFR ( Amer) > 60 07/12/18 10:49 Est GFR (Non-Af Amer) 58 07/12/18 10:49 Random Glucose 107 mg/dL (75-110) 07/12/18 10:49 Calcium 8.4 mg/dL (8.4-10.2) 07/12/18 10:49 Iron 54 ug/dL (49-181) 07/08/18 14:07 TIBC 189 ug/dL (250-450) L 07/08/18 14:07 % Saturation 28 % (20-55) 07/08/18 14:07 Ferritin 584.0 ng/Ml (17.9-464) H 07/08/18 14:07 Total Bilirubin 1.5 mg/dl (0.2-1.3) H 07/12/18 10:49 AST 26 U/L (17-59) 07/12/18 10:49 ALT 24 U/L (21-72) 07/12/18 10:49 Alkaline Phosphatase 51 U/L (38-126) 07/12/18 10:49 Total Protein 6.2 G/DL (6.3-8.2) L 07/12/18 10:49 Albumin 3.1 g/dL (3.5-5.0) L D 07/12/18 10:49 Globulin 3.1 gm/dL (2.2-3.9) 07/12/18 10:49 Albumin/Globulin Ratio 1.0 (1.0-2.1) 07/12/18 10:49 Prostate Specific Ag 9.44 ng/ML (0.00-4.0) H 07/07/18 06:00 Vitamin B12 266 pg/mL (239-931) 07/08/18 14:07 Folate 6.5 ng/mL 07/08/18 14:07 Urine Color Yellow (YELLOW) 07/06/18 15:41 Urine Clarity Slighty-cloudy (Clear) 07/06/18 15:41 Urine pH 6.0 (5.0-8.0) 07/06/18 15:41 Ur Specific [place] 1.012 (1.003-1.030) 07/06/18 15:41 Urine Protein Negative mg/dL (NEGATIVE) 07/06/18 15:41 Urine Glucose (UA) Neg mg/dL (Normal) 07/06/18 15:41 Urine Ketones Negative mg/dL (NEGATIVE) 07/06/18 15:41 Urine Blood Large (NEGATIVE) 07/06/18 15:41 Urine Nitrate Negative (NEGATIVE) 07/06/18 15:41 Urine Bilirubin Negative (NEGATIVE) 07/06/18 15:41 Urine Urobilinogen 0.2-1.0 mg/dL (0.2-1.0) 07/06/18 15:41 Ur Leukocyte Esterase Trace [place]/uL (Negative) 07/06/18 15:41 Urine RBC (Auto) 83 /hpf (0-3) H 07/06/18 15:41 Urine Microscopic WBC 11 /hpf (0-5) H 07/06/18 15:41 Urine Bacteria Rare (<OCC) 07/06/18 15:41 - Hospital Course Hospital Course: This is an 82 y/o male admitted for abd pain and dementia. Noted elevated PSA hematuria renal cyst and hydronephrosis. He was generally debilitated. He was seen by Neuro and urology and started on phys therapy. He was discharged to TCU for further PT On his last day he had episodes of agitation and pulled out underwood resulting to hematuria. Discharge Exam - Head Exam Head Exam: NORMAL INSPECTION - Eye Exam Eye Exam: Normal appearance - Respiratory Exam Respiratory Exam: NORMAL BREATHING PATTERN - GI/Abdominal Exam GI & Abdominal Exam: Normal Bowel Sounds, Unremarkable - Neurological Exam Neurological exam: Altered - Psychiatric Exam Psychiatric exam: Flat Affect Discharge Plan - Follow Up Plan Condition: FAIR Disposition: TRANSF TO SNF Instructions: Hydronephrosis, Adult (DC), Cystoscopy (DC) Additional Instructions: discharged to TCU for rehab Referrals: Romaine Sullivan MD [Staff Provider] - Kieran Nava MD [Medical Doctor] -
== END 2018-07-15 22:25 | DRG 690 ==
LOC: H.ER 08:28 → H.ERHOLD 12:42 → H.MEDSURG1 18:30 → OBSVTOIN 07-08 13:49 → H.MEDSURG1 07-10 12:03
PROVIDERS: ADMIT Family Medicine; ATTEND Family Medicine
DX: N13.6 Pyonephrosis (principal); F05 Delirium due to known physiological condition; N13.8 Other obstructive and reflux uropathy; S37.30XA Unspecified injury of urethra, initial encounter; F03.90 Unspecified dementia, unspecified severity, without behavioral disturbance, psychotic disturbance, mood disturbance, and anxiety; K59.00 Constipation, unspecified; E78.5 Hyperlipidemia, unspecified; I10 Essential (primary) hypertension; N28.1 Cyst of kidney, acquired; R31.0 Gross hematuria; N40.1 Benign prostatic hyperplasia with lower urinary tract symptoms; X50.3XXA Overexertion from repetitive movements, initial encounter; R97.20 Elevated prostate specific antigen [PSA]; R53.81 Other malaise

== ENCOUNTER 2018-07-15 22:59 | Inpatient (IN) | payer MEDICARE, OTHER ==
[2018-07-15 23:03] VITALS: BMI 24.1
[2018-07-16 02:40] VITALS: RESP 20
[2018-07-16] MEDS: Metoprolol Succinate 50 mg XL Tab PO SCH (08:32)
[2018-07-17] MEDS ORDERED: Pneumococcal 23-Valent Vaccine IM ONE (09:00)
[2018-07-17] MEDS: Metoprolol Succinate 50 mg XL Tab PO SCH (09:45)
[2018-07-18] MEDS: Metoprolol Succinate 50 mg XL Tab PO SCH (08:31)
[2018-07-18] MEDS ORDERED: Ergocalciferol 50,000 Intl Units Cap PO SCH (09:00)
[2018-07-19] MEDS: Metoprolol Succinate 50 mg XL Tab PO SCH (08:08)
--- NOTE | 2018-07-19 18:20 | CP.PCM.HP ---
History of Present Illness - History of Present Illness History of Present Illness: This is an 82 y/o male with worsening of dementia was admitted for further PT at TCU. He was admitted for abdominal pain in the medical floor and noted elevated pSA hematuria renal cysty dilated ureter .. Also noted very poor cognitive functioning. renal urology and neurology consultation were in place. Present on Admission - Present on Admission Any Indicators Present on Admission: No History of DVT/PE: No History of Uncontrolled Diabetes: No Urinary Catheter: No Decubitus Ulcer Present: No Review of Systems - Neurological Neurological: Memory Loss - Psychiatric Psychiatric: Memory Loss, Mood Swings Past Patient History - Past Medical History & Family History Past Medical History?: Yes - Past Social History Smoking Status: Never Smoked - CARDIAC Hx Cardiac Disorders: Yes - PULMONARY Hx Respiratory Disorders: No - NEUROLOGICAL Hx Neurological Disorder: No Hx Dementia: Yes - HEENT Hx HEENT Problems: No - RENAL Hx Chronic Kidney Disease: No - ENDOCRINE/METABOLIC Hx Endocrine Disorders: No - HEMATOLOGICAL/ONCOLOGICAL Hx Blood Disorders: No - INTEGUMENTARY Hx Dermatological Problems: No - MUSCULOSKELETAL/RHEUMATOLOGICAL Hx Falls: Yes - GASTROINTESTINAL Hx Gastrointestinal Disorders: No - GENITOURINARY/GYNECOLOGICAL Hx Hematuria: Yes Hx Prostate Problems: Yes - PSYCHIATRIC Hx Substance Use: No - SURGICAL HISTORY Hx Surgeries: No Other/Comment: cysto 07/14/18 - ANESTHESIA Hx Anesthesia: Yes Hx Anesthesia Reactions: No Meds Allergies/Adverse Reactions: Allergies Allergy/AdvReac Type Severity Reaction Status Date / Time No Known Allergies Allergy Verified 07/06/18 08:40 Physical Exam - Eye Exam Eye Exam: Normal appearance - ENT Exam ENT Exam: Mucous Membranes Moist - Respiratory Exam Respiratory Exam: Clear to Auscultation Bilateral - Cardiovascular Exam Cardiovascular Exam: REGULAR RHYTHM - GI/Abdominal Exam GI & Abdominal Exam: Normal Bowel Sounds - Neurological Exam Neurological exam: Altered, CN II-XII Intact Results - Vital Signs Recent Vital Signs: Last Vital Signs Temp 97.5 F L 07/19/18 15:54 Pulse 66 07/19/18 15:54 Resp 20 07/19/18 15:54 BP 109/60 07/19/18 15:54 Pulse Ox 99 07/19/18 15:54 Assessment & Plan (1) Dementia Status: Acute (2) Abnormality of gait and mobility Status: Acute (3) Abnormal PSA Status: Acute (4) Hydronephrosis Status: Acute (5) Osteoarthritis Status: Acute (6) Renal cyst Status: Acute (7) Urinary retention Status: Acute - Assessment and Plan (Free Text) Plan: start Phys therapy Cont meds Cont tx Cont PT
--- NOTE | 2018-07-19 18:23 | CP.PCM.PN ---
Subjective - Date & Time of Evaluation Date of Evaluation: 07/17/18 Time of Evaluation: 11:00 - Subjective Subjective: Patient remains stable Has no episodes of agitation Has poor appetite Has poor balance and mobility. Objective - Vital Signs/Intake and Output Vital Signs (last 24 hours): Temp Pulse Resp BP Pulse Ox 97.5 F L 66 20 109/60 99 07/19/18 15:54 07/19/18 15:54 07/19/18 15:54 07/19/18 15:54 07/19/18 15:54 Intake and Output: 07/19/18 07/19/18 06:59 18:59 Output Total 700 Balance -700 - Medications Medications: Current Medications Acetaminophen (Tylenol 325mg Tab) 650 mg PO Q6 PRN PRN Reason: Pain, moderate (4-7) Last Admin: 07/19/18 16:19 Dose: 650 mg Aspirin (Ecotrin) 81 mg PO DAILY [facility] Last Admin: 07/19/18 08:08 Dose: 81 mg Docusate Sodium (Colace) 100 mg PO BID [facility] Last Admin: 07/19/18 16:19 Dose: 100 mg Ergocalciferol (Drisdol 50,000 Intl Units Cap) 1 cap PO SUN [facility] Last Admin: 07/18/18 08:31 Dose: 1 cap Losartan Potassium (Cozaar) 100 mg PO DAILY [facility] Last Admin: 07/19/18 08:08 Dose: 100 mg Metoprolol Succinate (Toprol Xl) 50 mg PO DAILY [facility] Last Admin: 07/19/18 08:08 Dose: 50 mg Ondansetron HCl (Zofran Inj) 4 mg IVP Q6 PRN PRN Reason: Nausea/Vomiting Tamsulosin HCl (Flomax) 0.4 mg PO QPM [facility] Last Admin: 07/19/18 17:14 Dose: 0.4 mg - Head Exam Head Exam: NORMAL INSPECTION - Eye Exam Eye Exam: Normal appearance - Respiratory Exam Respiratory Exam: Clear to Ausculation Bilateral - Cardiovascular Exam Cardiovascular Exam: REGULAR RHYTHM - GI/Abdominal Exam GI & Abdominal Exam: Normal Bowel Sounds Assessment and Plan (1) Dementia Status: Acute (2) Abnormality of gait and mobility Status: Acute (3) Abnormal PSA Status: Acute (4) Hydronephrosis Status: Acute (5) Osteoarthritis Status: Acute (6) Renal cyst Status: Acute (7) Urinary retention Status: Acute - Assessment and Plan (Free Text) Plan: Con tmeds Con ttx Cont PT follow up with Urology check labs
--- NOTE | 2018-07-19 18:25 | CP.PCM.PN ---
Subjective - Date & Time of Evaluation Date of Evaluation: 07/18/18 Time of Evaluation: 13:00 - Subjective Subjective: patient is doing a lot better Has no chest pain or SOb afebrile Has poor appetite Objective - Vital Signs/Intake and Output Vital Signs (last 24 hours): Temp Pulse Resp BP Pulse Ox 97.5 F L 66 20 109/60 99 07/19/18 15:54 07/19/18 15:54 07/19/18 15:54 07/19/18 15:54 07/19/18 15:54 Intake and Output: 07/19/18 07/19/18 06:59 18:59 Output Total 700 Balance -700 - Medications Medications: Current Medications Acetaminophen (Tylenol 325mg Tab) 650 mg PO Q6 PRN PRN Reason: Pain, moderate (4-7) Last Admin: 07/19/18 16:19 Dose: 650 mg Aspirin (Ecotrin) 81 mg PO DAILY [facility] Last Admin: 07/19/18 08:08 Dose: 81 mg Docusate Sodium (Colace) 100 mg PO BID [facility] Last Admin: 07/19/18 16:19 Dose: 100 mg Ergocalciferol (Drisdol 50,000 Intl Units Cap) 1 cap PO SUN [facility] Last Admin: 07/18/18 08:31 Dose: 1 cap Losartan Potassium (Cozaar) 100 mg PO DAILY [facility] Last Admin: 07/19/18 08:08 Dose: 100 mg Metoprolol Succinate (Toprol Xl) 50 mg PO DAILY [facility] Last Admin: 07/19/18 08:08 Dose: 50 mg Ondansetron HCl (Zofran Inj) 4 mg IVP Q6 PRN PRN Reason: Nausea/Vomiting Tamsulosin HCl (Flomax) 0.4 mg PO QPM [facility] Last Admin: 07/19/18 17:14 Dose: 0.4 mg - Head Exam Head Exam: NORMAL INSPECTION - Eye Exam Eye Exam: Normal appearance - Cardiovascular Exam Cardiovascular Exam: REGULAR RHYTHM - GI/Abdominal Exam GI & Abdominal Exam: Normal Bowel Sounds - Neurological Exam Neurological Exam: Altered, Oriented x3 Assessment and Plan (1) Dementia Status: Acute (2) Abnormality of gait and mobility Status: Acute (3) Abnormal PSA Status: Acute (4) Hydronephrosis Status: Acute (5) Osteoarthritis Status: Acute (6) Renal cyst Status: Acute (7) Urinary retention Status: Acute - Assessment and Plan (Free Text) Plan: Con tmeds Con ttx Cont PT
--- NOTE | 2018-07-19 18:27 | CP.PCM.PN ---
Subjective - Date & Time of Evaluation Date of Evaluation: 07/19/18 Time of Evaluation: 16:00 - Subjective Subjective: Patient remiains well but very poor appetite Noted at rehab to have some shuffling gait Has no agitation No episode of hematuria Objective - Vital Signs/Intake and Output Vital Signs (last 24 hours): Temp Pulse Resp BP Pulse Ox 97.5 F L 66 20 109/60 99 07/19/18 15:54 07/19/18 15:54 07/19/18 15:54 07/19/18 15:54 07/19/18 15:54 Intake and Output: 07/19/18 07/19/18 06:59 18:59 Output Total 700 Balance -700 - Medications Medications: Current Medications Acetaminophen (Tylenol 325mg Tab) 650 mg PO Q6 PRN PRN Reason: Pain, moderate (4-7) Last Admin: 07/19/18 16:19 Dose: 650 mg Aspirin (Ecotrin) 81 mg PO DAILY [facility] Last Admin: 07/19/18 08:08 Dose: 81 mg Docusate Sodium (Colace) 100 mg PO BID [facility] Last Admin: 07/19/18 16:19 Dose: 100 mg Ergocalciferol (Drisdol 50,000 Intl Units Cap) 1 cap PO SUN [facility] Last Admin: 07/18/18 08:31 Dose: 1 cap Losartan Potassium (Cozaar) 100 mg PO DAILY [facility] Last Admin: 07/19/18 08:08 Dose: 100 mg Metoprolol Succinate (Toprol Xl) 50 mg PO DAILY [facility] Last Admin: 07/19/18 08:08 Dose: 50 mg Ondansetron HCl (Zofran Inj) 4 mg IVP Q6 PRN PRN Reason: Nausea/Vomiting Tamsulosin HCl (Flomax) 0.4 mg PO QPM [facility] Last Admin: 07/19/18 17:14 Dose: 0.4 mg - Head Exam Head Exam: NORMAL INSPECTION - Eye Exam Eye Exam: Normal appearance - GI/Abdominal Exam GI & Abdominal Exam: Normal Bowel Sounds - Neurological Exam Neurological Exam: Awake, Oriented x3 Assessment and Plan (1) Dementia Status: Acute (2) Abnormality of gait and mobility Status: Acute (3) Abnormal PSA Status: Acute (4) Hydronephrosis Status: Acute (5) Osteoarthritis Status: Acute (6) Renal cyst Status: Acute (7) Urinary retention Status: Acute - Assessment and Plan (Free Text) Plan: Con tmeds Con ttx Cont meds Cont PT check labs follow up Neuro
[2018-07-20 07:12] LABS: IRON 58 ug/dL (49-181)
[2018-07-20 07:21] LABS: % IRON SATURATION 29 % (20-55); TOTAL IRON BINDING CAPACITY 200 ug/dL (250-450)
[2018-07-20 07:29] LABS: BASO # 0.1 K/uL (0.0-0.2); BASO % 0.9 % (0.0-2.0); EOS # 0.2 K/uL (0.0-0.7); EOS % 2.2 % (0.0-4.0); HEMOGLOBIN 9.7 g/dL (12.0-18.0); LYMPH # 1.4 K/uL (1.0-4.3); LYMPH % 17.3 % (20.0-40.0); MEAN CORPUSCULAR HEMOGLOBIN 40.5 pg (27.0-31.0); MEAN CORPUSCULAR HGB CONC 35.5 g/dL (33.0-37.0); MEAN PLATELET VOLUME 8.4 fl (7.2-11.7); MONO # 0.7 K/uL (0.0-0.8); MONO % 8.5 % (0.0-10.0); NEUT # 5.7 K/uL (1.8-7.0); NEUT % 71.1 % (50.0-75.0); NRBC % 0.1 % (0.0-0.0); RBC 2.39 Mil/uL (4.40-5.90); WHITE BLOOD COUNT 8.1 K/uL (4.8-10.8)
[2018-07-20 08:00] LABS: ALBUMIN 3.3 g/dL (3.5-5.0); ALT/SGPT 36 U/L (21-72); AST/SGOT 27 U/L (17-59); BLOOD UREA NITROGEN 28 mg/dl (9-20); CALCIUM 8.5 mg/dL (8.4-10.2); GFR NON-AFRICAN AMERICAN 58
[2018-07-20] MEDS: Metoprolol Succinate 50 mg XL Tab PO SCH (08:15)
[2018-07-20 11:39] LABS: PROTHROMBIN TIME 11.2 Seconds (9.8-13.1)
--- NOTE | 2018-07-20 12:43 | RAD ---
Date of service: 07/20/2018 PROCEDURE: CHEST RADIOGRAPH, 1 VIEW HISTORY: pre op COMPARISON: None available. FINDINGS: LUNGS: Clear. PLEURA: No pneumothorax or pleural fluid seen. CARDIOVASCULAR: No aortic atherosclerotic calcification present. No radiographic findings to suggest acute or significant cardiovascular disease. OSSEOUS STRUCTURES: No significant abnormalities. VISUALIZED UPPER ABDOMEN: Normal. OTHER FINDINGS: None. IMPRESSION: No active disease.
--- NOTE | 2018-07-20 18:52 | CARD ---
APPROVED REPORT Date of service: 07/20/2018 EKG Measurement Heart [id number] <Conclusion> Normal sinus rhythm Normal ECG
--- NOTE | 2018-07-20 19:12 | CP.PCM.PN ---
Subjective - Date & Time of Evaluation Date of Evaluation: 07/20/18 Time of Evaluation: 11:00 - Subjective Subjective: patient seen during therapy. no complaints offered continues to occasionally have sundowning symptoms however feels well at this time Objective - Vital Signs/Intake and Output Vital Signs (last 24 hours): Temp Pulse Resp BP Pulse Ox 97.7 F 61 20 137/73 98 07/20/18 16:22 07/20/18 16:22 07/20/18 16:22 07/20/18 16:22 07/20/18 16:22 - Medications Medications: Current Medications Acetaminophen (Tylenol 325mg Tab) 650 mg PO Q6 PRN PRN Reason: Pain, moderate (4-7) Last Admin: 07/20/18 02:37 Dose: 650 mg Aspirin (Ecotrin) 81 mg PO DAILY [facility] Last Admin: 07/20/18 08:15 Dose: 81 mg Docusate Sodium (Colace) 100 mg PO BID [facility] Last Admin: 07/20/18 16:54 Dose: 100 mg Donepezil HCl (Aricept) 5 mg PO HS [facility] Last Admin: 07/19/18 20:59 Dose: 5 mg Ergocalciferol (Drisdol 50,000 Intl Units Cap) 1 cap PO SUN [facility] Last Admin: 07/18/18 08:31 Dose: 1 cap Losartan Potassium (Cozaar) 100 mg PO DAILY [facility] Last Admin: 07/20/18 08:14 Dose: 100 mg Memantine (Namenda) 5 mg PO BID [facility] Last Admin: 07/20/18 16:54 Dose: 5 mg Metoprolol Succinate (Toprol Xl) 50 mg PO DAILY [facility] Last Admin: 07/20/18 08:15 Dose: 50 mg Tamsulosin HCl (Flomax) 0.4 mg PO QPM [facility] Last Admin: 07/20/18 17:02 Dose: 0.4 mg - Labs Labs: 07/20/18 06:30 07/20/18 06:30 PT 11.2 Seconds (9.8-13.1) 07/20/18 11:30 INR 1.0 07/20/18 11:30 APTT 31.0 Seconds (25.6-37.1) 07/20/18 11:30 - Head Exam Head Exam: NORMAL INSPECTION - Neck Exam Neck Exam: Normal Inspection - Respiratory Exam Respiratory Exam: Clear to Ausculation Bilateral, NORMAL BREATHING PATTERN - Cardiovascular Exam Cardiovascular Exam: +S1, +S2 - GI/Abdominal Exam GI & Abdominal Exam: Soft - Neurological Exam Neurological Exam: Alert, Awake - Psychiatric Exam Psychiatric exam: Normal Affect, Normal Mood - Skin Skin Exam: Normal Color, Warm Assessment and Plan - Assessment and Plan (Free Text) Assessment: Cont meds Cont tx Cont PT check labs, ekg, cxr Dr. Shaerer, urology, scheduled TURP for Thursday, 10:30 am, at [facility] enter will review labs/imaging tomorrow and determine clearance for procedure
[2018-07-21] MEDS: Metoprolol Succinate 50 mg XL Tab PO SCH (09:00)
[2018-07-22] MEDS: Metoprolol Succinate 50 mg XL Tab PO SCH (08:24)
--- NOTE | 2018-07-22 09:57 | CP.PCM.PN ---
Subjective - Date & Time of Evaluation Date of Evaluation: 07/21/18 Time of Evaluation: 11:00 - Subjective Subjective: patient seen and examined at bedside. no complaints offered continues to occasionally have sundowning symptoms, improving however feels well at this time Objective - Vital Signs/Intake and Output Vital Signs (last 24 hours): Temp Pulse Resp BP Pulse Ox 97.6 F 65 20 106/58 L 98 07/22/18 08:30 07/22/18 08:30 07/22/18 08:30 07/22/18 08:30 07/22/18 08:30 Intake and Output: 07/22/18 07/22/18 06:59 18:59 Output Total 800 Balance -800 - Medications Medications: Current Medications Acetaminophen (Tylenol 325mg Tab) 650 mg PO Q6 PRN PRN Reason: Pain, moderate (4-7) Last Admin: 07/20/18 22:26 Dose: 650 mg Aspirin (Ecotrin) 81 mg PO DAILY [facility] Last Admin: 07/22/18 08:24 Dose: 81 mg Carbidopa/Levodopa (Sinemet) 1 tab PO BID@0700,1200 [facility] Last Admin: 07/22/18 06:35 Dose: 1 tab Docusate Sodium (Colace) 100 mg PO BID [facility] Last Admin: 07/22/18 08:23 Dose: 100 mg Donepezil HCl (Aricept) 5 mg PO HS [facility] Last Admin: 07/21/18 22:39 Dose: 5 mg Ergocalciferol (Drisdol 50,000 Intl Units Cap) 1 cap PO SUN [facility] Last Admin: 07/18/18 08:31 Dose: 1 cap Losartan Potassium (Cozaar) 100 mg PO DAILY [facility] Last Admin: 07/22/18 08:23 Dose: 100 mg Memantine (Namenda) 5 mg PO BID [facility] Last Admin: 07/22/18 08:24 Dose: 5 mg Metoprolol Succinate (Toprol Xl) 50 mg PO DAILY [facility] Last Admin: 07/22/18 08:24 Dose: 50 mg Tamsulosin HCl (Flomax) 0.4 mg PO QPM [facility] Last Admin: 07/21/18 17:02 Dose: 0.4 mg - Labs Labs: 07/20/18 06:30 07/20/18 06:30 PT 11.2 Seconds (9.8-13.1) 07/20/18 11:30 INR 1.0 07/20/18 11:30 APTT 31.0 Seconds (25.6-37.1) 07/20/18 11:30 - Additional Findings Additional findings: - Head Exam Head Exam: NORMAL INSPECTION - Neck Exam Neck Exam: Normal Inspection - Respiratory Exam Respiratory Exam: Clear to Ausculation Bilateral, NORMAL BREATHING PATTERN - Cardiovascular Exam Cardiovascular Exam: +S1, +S2 - GI/Abdominal Exam GI & Abdominal Exam: Soft - Neurological Exam Neurological Exam: Alert, Awake - Psychiatric Exam Psychiatric exam: Normal Affect, Normal Mood - Skin Skin Exam: Normal Color, Warm Assessment and Plan - Assessment and Plan (Free Text) Assessment: Cont meds Cont tx Cont PT labs, ekg, cxr reviewed patient is medically optimized for procedure with Dr. Manfred Shearer, urology, scheduled TURP for Thursday, 10:30 am, at [facility]
--- NOTE | 2018-07-22 13:04 | CP.PCM.CON ---
History of Present Illness - History of Present Illness History of Present Illness: 83 yr old male who lives with his daughter, originally from the [facility], here for TCU admission. It was noted that the patient has increased tremors and slowness of movement. On examination the patient was very cooperative and c omplained that over the last 4 months he has become progressively slower and is falling more frequently. ROS: no complaints at this time. PMH/PSH: as per chart. FH/SH: lives with daughter. no tobacco, no etoh. All: nkda. On exam: aaox3. PERRL. CN 2-12 normal. speech fluent. Motor: normal strength. +cogwheeling, +tremor severe wagner. +bradykinesia. Past Patient History - Past Medical History & Family History Past Medical History?: Yes - Past Social History Smoking Status: Never Smoked - CARDIAC Hx Cardiac Disorders: Yes - PULMONARY Hx Respiratory Disorders: No - NEUROLOGICAL Hx Neurological Disorder: No Hx Dementia: Yes - HEENT Hx HEENT Problems: No - RENAL Hx Chronic Kidney Disease: No - ENDOCRINE/METABOLIC Hx Endocrine Disorders: No - HEMATOLOGICAL/ONCOLOGICAL Hx Blood Disorders: No - INTEGUMENTARY Hx Dermatological Problems: No - MUSCULOSKELETAL/RHEUMATOLOGICAL Hx Falls: Yes - GASTROINTESTINAL Hx Gastrointestinal Disorders: No - GENITOURINARY/GYNECOLOGICAL Hx Hematuria: Yes Hx Prostate Problems: Yes - PSYCHIATRIC Hx Substance Use: No - SURGICAL HISTORY Hx Surgeries: No Other/Comment: cysto 07/14/18 - ANESTHESIA Hx Anesthesia: Yes Hx Anesthesia Reactions: No Meds Allergies/Adverse Reactions: Allergies Allergy/AdvReac Type Severity Reaction Status Date / Time No Known Allergies Allergy Verified 07/06/18 08:40 - Medications Medications: Current Medications Acetaminophen (Tylenol 325mg Tab) 650 mg PO Q6 PRN PRN Reason: Pain, moderate (4-7) Last Admin: 07/20/18 22:26 Dose: 650 mg Aspirin (Ecotrin) 81 mg PO DAILY [facility] Last Admin: 07/22/18 08:24 Dose: 81 mg Carbidopa/Levodopa (Sinemet) 1 tab PO BID@0700,1200 [facility] Last Admin: 07/22/18 11:54 Dose: 1 tab Docusate Sodium (Colace) 100 mg PO BID [facility] Last Admin: 07/22/18 08:23 Dose: 100 mg Donepezil HCl (Aricept) 5 mg PO HS [facility] Last Admin: 07/21/18 22:39 Dose: 5 mg Ergocalciferol (Drisdol 50,000 Intl Units Cap) 1 cap PO SUN [facility] Last Admin: 07/18/18 08:31 Dose: 1 cap Losartan Potassium (Cozaar) 100 mg PO DAILY [facility] Last Admin: 07/22/18 08:23 Dose: 100 mg Memantine (Namenda) 5 mg PO BID [facility] Last Admin: 07/22/18 08:24 Dose: 5 mg Metoprolol Succinate (Toprol Xl) 50 mg PO DAILY [facility] Last Admin: 07/22/18 08:24 Dose: 50 mg Tamsulosin HCl (Flomax) 0.4 mg PO QPM [facility] Last Admin: 07/21/18 17:02 Dose: 0.4 mg Results - Vital Signs Recent Vital Signs: Last Vital Signs Temp 97.6 F 07/22/18 08:30 Pulse 65 07/22/18 08:30 Resp 20 07/22/18 08:30 BP 106/58 L 07/22/18 08:30 Pulse Ox 98 07/22/18 08:30 - Labs Result Diagrams: 07/20/18 06:30 07/20/18 06:30 Labs: Laboratory Results - last 24 hr 07/20/18 06:30 RBC Folate 636 Assessment & Plan - Assessment and Plan (Free Text) Assessment: 83 yr old male with moderately severe Parkinsons Disease. I would recommend starting him on sinemet 25/100 tid, last dose before 5 pm. Thankagustina pagan [facility]
--- NOTE | 2018-07-22 18:26 | CP.PCM.CON ---
History of Present Illness - History of Present Illness History of Present Illness: Dr Gaines PMR consultation on Ab Burciaga, born 1935 who was admitted to the TCU for SHYAM given a decrease in function + PD on Sinemet. had neuro consult Review of Systems - Constitutional Constitutional: absent: Chills, Daytime Sleepiness - EENT Eyes: absent: Change in Vision Ears: absent: Ear Discharge, Ear Pain Nose/Mouth/Throat: absent: Nasal Congestion - Cardiovascular Cardiovascular: absent: Chest Pain - Respiratory Respiratory: absent: Hemoptysis - Gastrointestinal Gastrointestinal: absent: Belching, Constipation - Musculoskeletal Musculoskeletal: absent: Back Pain - Neurological Neurological: absent: Abnormal Movements Past Patient History - Past Medical History & Family History Past Medical History?: Yes - Past Social History Smoking Status: Never Smoked - CARDIAC Hx Cardiac Disorders: Yes - PULMONARY Hx Respiratory Disorders: No - NEUROLOGICAL Hx Neurological Disorder: No Hx Dementia: Yes - HEENT Hx HEENT Problems: No - RENAL Hx Chronic Kidney Disease: No - ENDOCRINE/METABOLIC Hx Endocrine Disorders: No - HEMATOLOGICAL/ONCOLOGICAL Hx Blood Disorders: No - INTEGUMENTARY Hx Dermatological Problems: No - MUSCULOSKELETAL/RHEUMATOLOGICAL Hx Falls: Yes - GASTROINTESTINAL Hx Gastrointestinal Disorders: No - GENITOURINARY/GYNECOLOGICAL Hx Hematuria: Yes Hx Prostate Problems: Yes - PSYCHIATRIC Hx Substance Use: No - SURGICAL HISTORY Hx Surgeries: No Other/Comment: cysto 07/14/18 - ANESTHESIA Hx Anesthesia: Yes Hx Anesthesia Reactions: No Meds Allergies/Adverse Reactions: Allergies Allergy/AdvReac Type Severity Reaction Status Date / Time No Known Allergies Allergy Verified 07/06/18 08:40 - Medications Medications: Current Medications Acetaminophen (Tylenol 325mg Tab) 650 mg PO Q6 PRN PRN Reason: Pain, moderate (4-7) Last Admin: 07/20/18 22:26 Dose: 650 mg Aspirin (Ecotrin) 81 mg PO DAILY [facility] Last Admin: 07/22/18 08:24 Dose: 81 mg Carbidopa/Levodopa (Sinemet) 1 tab PO BID@0700,1200 [facility] Last Admin: 07/22/18 11:54 Dose: 1 tab Docusate Sodium (Colace) 100 mg PO BID [facility] Last Admin: 07/22/18 17:00 Dose: 100 mg Donepezil HCl (Aricept) 5 mg PO HS [facility] Last Admin: 07/21/18 22:39 Dose: 5 mg Ergocalciferol (Drisdol 50,000 Intl Units Cap) 1 cap PO SUN [facility] Last Admin: 07/18/18 08:31 Dose: 1 cap Losartan Potassium (Cozaar) 100 mg PO DAILY [facility] Last Admin: 07/22/18 08:23 Dose: 100 mg Memantine (Namenda) 5 mg PO BID [facility] Last Admin: 07/22/18 17:00 Dose: 5 mg Metoprolol Succinate (Toprol Xl) 50 mg PO DAILY [facility] Last Admin: 07/22/18 08:24 Dose: 50 mg Tamsulosin HCl (Flomax) 0.4 mg PO QPM [facility] Last Admin: 07/22/18 17:00 Dose: 0.4 mg Physical Exam - Constitutional Appears: Non-toxic, No Acute Distress - Head Exam Head Exam: ATRAUMATIC, NORMAL INSPECTION, NORMOCEPHALIC - Eye Exam Eye Exam: EOMI - ENT Exam ENT Exam: Mucous Membranes Moist - Respiratory Exam Respiratory Exam: NORMAL BREATHING PATTERN - Cardiovascular Exam Cardiovascular Exam: REGULAR RHYTHM - GI/Abdominal Exam GI & Abdominal Exam: absent: Distended, Firm - Extremities Exam Extremities exam: Positive for: full ROM, normal inspection. Negative for: calf tenderness, pedal edema - Neurological Exam Neurological exam: Alert, CN II-XII Intact - Psychiatric Exam Psychiatric exam: Flat Affect, Normal Mood - Skin Skin Exam: Warm Results - Vital Signs Recent Vital Signs: Last Vital Signs Temp 97.7 F 07/22/18 15:53 Pulse 64 07/22/18 15:53 Resp 20 07/22/18 15:53 BP 138/69 07/22/18 15:53 Pulse Ox 100 07/22/18 15:53 - Labs Result Diagrams: 07/20/18 06:30 07/20/18 06:30 Labs: Laboratory Results - last 24 hr 07/20/18 06:30 RBC Folate 636 Assessment & Plan - Assessment and Plan (Free Text) Assessment: PT/OT to continue to help increase functional independence Pain: controlled Vascular: no evidence of DVT GI: No evidence of constipation or diarrhea
[2018-07-23] MEDS: Metoprolol Succinate 50 mg XL Tab PO SCH ×2 (06:22→08:07)
[2018-07-23] MEDS ORDERED: Sodium Chloride 0.9% 1,000 ML IV SCH (16:30)
[2018-07-23] MEDS ORDERED: Succinylcholine 200 mg/10 ml Inj IV ONE (16:40)
[2018-07-23] MEDS ORDERED: Etomidate 20 mg/10ml Inj IV ONE (16:40)
[2018-07-23 17:27] VITALS: BP 185/91; PULSE 95; TEMP 97.5; O2SAT 100
== END 2018-07-23 16:45 | disposition short-term general hospital (02) | DRG 884 ==
LOC: H.TCU 23:04
PROVIDERS: ADMIT Family Medicine; ATTEND Family Medicine
PROC: F07Z9FZ Gait Training/Functional Ambulation Treatment using Assistive, Adaptive, Supportive or Protective Equipment (ICD-10-PCS; principal; 2018-07-15)
PROC: F08Z4FZ Home Management Treatment using Assistive, Adaptive, Supportive or Protective Equipment (ICD-10-PCS; 2018-07-15)
PROC: F07M6FZ Therapeutic Exercise Treatment of Musculoskeletal System - Whole Body using Assistive, Adaptive, Supportive or Protective Equipment (ICD-10-PCS; 2018-07-16)
PROC: 3E0234Z Introduction of Serum, Toxoid and Vaccine into Muscle, Percutaneous Approach (ICD-10-PCS; 2018-07-17)
DX: F03.90 Unspecified dementia, unspecified severity, without behavioral disturbance, psychotic disturbance, mood disturbance, and anxiety (principal); N13.39 Other hydronephrosis; G20 Parkinson's disease; R26.89 Other abnormalities of gait and mobility; R33.9 Retention of urine, unspecified; R29.6 Repeated falls; R97.20 Elevated prostate specific antigen [PSA]; N28.1 Cyst of kidney, acquired; M19.90 Unspecified osteoarthritis, unspecified site; Z23 Encounter for immunization

== ENCOUNTER 2018-07-23 16:46 | Inpatient (IN) | payer MEDICARE, OTHER ==
[2018-07-23] MEDS ORDERED: cefTRIAXone (Rocephin) 1 gm Inj ONE (16:52)
[2018-07-23] MEDS ORDERED: Sodium Chloride 0.9% 1,000 ML IV STA (16:53)
--- NOTE | 2018-07-23 16:56 | ED PDOC ---
HPI: General Adult Time Seen by Provider: 07/23/18 16:52 History Per: Other Current Symptoms Are (Timing): Still Present Additional Complaint(s): Transferred from TCU for hematuria. Pt is s/p TURP and started having hematuria with clots. To return to OR for cystoscopy and evacuation of clots. Past Medical History - Medical History PMH: Dementia, HTN Denies: Diabetes, Chronic Kidney Disease - Surgical History Surgical History: Appendectomy - Family History Family History: States: Unknown Family Hx - Home Medications Home Medications: Ambulatory Orders Medication Instructions Recorded Aspirin [Ecotrin] 81 mg PO DAILY 07/06/18 Ergocalciferol (Vitamin D2) 50,000 unit PO QWK 07/06/18 [Vitamin D2] Losartan [Cozaar] 100 mg PO DAILY 07/06/18 Metoprolol Succinate XL [Toprol XL] 50 mg PO DAILY 07/06/18 Tamsulosin [Flomax] 0.4 mg PO QPM 07/06/18 - Allergies Allergies/Adverse Reactions: Allergies Allergy/AdvReac Type Severity Reaction Status Date / Time No Known Allergies Allergy Verified 07/06/18 08:40 Review of Systems Genitourinary Male: Positive for: Hematuria Physical Exam - Physical Exam Appears: Positive for: Non-toxic, No Acute Distress Skin: Positive for: Normal Color, Warm, DRY Cardiovascular/Chest: Positive for: Regular Rate, Rhythm Respiratory: Positive for: CNT, Normal Breath Sounds Gastrointestinal/Abdominal: Positive for: Bowel Sounds, Soft. Negative for: Tenderness Disposition - Clinical Impression Clinical Impression: Hematuria - Patient ED Disposition Is Patient to be Admitted: Yes - Disposition Disposition Time: 16:56 Condition: FAIR - Pt Status Changed To: Hospital Disposition Of: Inpatient - Admit Certification Admit to Inpatient:: After my assessment, the patient will require hospitalization for at least two midnights. This is because of the severity of symptoms shown, intensity of services needed, and/or the medical risk in this patient being treated as an outpatient. - POA Present On Arrival: None
[2018-07-23] MEDS ORDERED: Sodium Chloride 0.9% 1,000 ML IV ONE (18:18)
[2018-07-24 07:21] LABS: MEAN CELL VOLUME 121.4 fl (80.0-94.0); MEAN CORPUSCULAR HEMOGLOBIN 50.7 pg (27.0-31.0); MEAN CORPUSCULAR HGB CONC 41.7 g/dL (33.0-37.0); RBC 1.58 Mil/uL (4.40-5.90); RED CELL DISTRIBUTION WIDTH 14.9 % (11.5-14.5)
[2018-07-24 07:26] LABS: INR 1.1; PROTHROMBIN TIME 12.5 Seconds (9.8-13.1)
[2018-07-24 07:28] LABS: PARTIAL THROMBOPLASTIN TIME 29.1 Seconds (25.6-37.1)
[2018-07-24 07:43] LABS: ALB/GLOB RATIO 0.8 (1.0-2.1); ALBUMIN 2.7 g/dL (3.5-5.0); ALT/SGPT 22 U/L (21-72); AST/SGOT 32 U/L (17-59); BLOOD UREA NITROGEN 21 mg/dl (9-20); GFR NON-AFRICAN AMERICAN > 60
[2018-07-24] MEDS: Metoprolol Succinate 50 mg XL Tab PO SCH (09:24)
--- NOTE | 2018-07-24 10:43 | CP.PCM.HP ---
History of Present Illness - History of Present Illness History of Present Illness: 82 y/o male with worsening of dementia admitted due to s/p TURP and started having hematuria with clots. Patient returned to OR for cystoscopy and evacuation of clots Urology on board Patient seen and examined at bedside. No complaints offered Feels well. Denies dizziness, fever, chills, cp, sob. Present on Admission - Present on Admission Any Indicators Present on Admission: Yes Urinary Catheter: Yes Review of Systems - Review of Systems All systems: reviewed and no additional remarkable complaints except (mentioned above) Past Patient History - Past Medical History & Family History Past Medical History?: Yes Past Family History: Reviewed and not pertinent - Past Social History Smoking Status: Never Smoked - CARDIAC Hx Cardiac Disorders: Yes Hx Hypertension: Yes - PULMONARY Hx Respiratory Disorders: No - NEUROLOGICAL Hx Neurological Disorder: Yes Hx Dementia: Yes - HEENT Hx HEENT Problems: No - RENAL Hx Chronic Kidney Disease: No - ENDOCRINE/METABOLIC Hx Endocrine Disorders: No - HEMATOLOGICAL/ONCOLOGICAL Hx Blood Disorders: No - INTEGUMENTARY Hx Dermatological Problems: No - MUSCULOSKELETAL/RHEUMATOLOGICAL Hx Musculoskeletal Disorders: Yes Hx Falls: Yes - GASTROINTESTINAL Hx Gastrointestinal Disorders: No - GENITOURINARY/GYNECOLOGICAL Hx Genitourinary Disorders: Yes Hx Hematuria: Yes Hx Prostate Problems: Yes - PSYCHIATRIC Hx Psychophysiologic Disorder: No Hx Substance Use: No - SURGICAL HISTORY Hx Surgeries: No Hx Appendectomy: No (denies) - ANESTHESIA Hx Anesthesia: Yes Hx Anesthesia Reactions: No Hx Malignant Hyperthermia: No Has any member of the family had a problem w/ anesthesia?: No Meds Allergies/Adverse Reactions: Allergies Allergy/AdvReac Type Severity Reaction Status Date / Time No Known Allergies Allergy Verified 07/06/18 08:40 Physical Exam - Constitutional Appears: Non-toxic, No Acute Distress - Head Exam Head Exam: NORMAL INSPECTION - Eye Exam Eye Exam: Normal appearance - Neck Exam Neck exam: Positive for: Normal Inspection - Respiratory Exam Respiratory Exam: NORMAL BREATHING PATTERN - Cardiovascular Exam Cardiovascular Exam: +S1, +S2 - GI/Abdominal Exam GI & Abdominal Exam: Soft - Extremities Exam Extremities exam: Positive for: normal inspection - Back Exam Back exam: NORMAL INSPECTION - Neurological Exam Neurological exam: Alert - Psychiatric Exam Psychiatric exam: Normal Affect, Normal Mood - Skin Skin Exam: Normal Color, Warm Results - Vital Signs Recent Vital Signs: Last Vital Signs Temp 97.8 F 07/24/18 08:20 Pulse 64 07/24/18 08:20 Resp 20 07/24/18 08:20 BP 117/58 L 07/24/18 08:20 Pulse Ox 98 07/24/18 08:20 - Labs Result Diagrams: 07/25/18 05:25 07/25/18 05:25 Labs: Laboratory Results - last 24 hr 07/24/18 07/24/18 07/24/18 06:30 06:30 06:30 WBC 15.0 H D RBC 1.58 L Hgb 8.0 L Hct 19.1 L MCV 121.4 H D MCH 50.7 H MCHC 41.7 H RDW 14.9 H Plt Count 229 PT 12.5 INR 1.1 APTT 29.1 Sodium 141 Potassium 4.4 Chloride 111 H Carbon Dioxide 24 Anion Gap 10 BUN 21 H Creatinine 1.1 Est GFR ( Amer) > 60 Est GFR (Non-Af Amer) > 60 Random Glucose 113 H Calcium 8.0 L Total Bilirubin 0.9 AST 32 ALT 22 Alkaline Phosphatase 49 Total Protein 5.9 L Albumin 2.7 L Globulin 3.2 Albumin/Globulin Ratio 0.8 L Assessment & Plan - Assessment and Plan (Free Text) Assessment: 82 y/o male with worsening of dementia admitted due to s/p TURP and started having hematuria with clots. plan monitor labs monitor vitals all available diagnostic data reviewed if cbc trends down, will give pRBC urology on board meds as ordered rest of plan as ordered
[2018-07-24 11:48] LABS: HEMOGLOBIN 7.6 g/dL (12.0-18.0); MEAN CELL VOLUME 130.6 fl (80.0-94.0); MEAN CORPUSCULAR HEMOGLOBIN 84.8 pg (27.0-31.0); MEAN CORPUSCULAR HGB CONC 64.9 g/dL (33.0-37.0); RBC 0.9 Mil/uL (4.40-5.90); RED CELL DISTRIBUTION WIDTH 15.6 % (11.5-14.5); WHITE BLOOD COUNT 14.7 K/uL (4.8-10.8)
[2018-07-25 07:30] LABS: ALB/GLOB RATIO 0.8 (1.0-2.1); ALBUMIN 2.6 g/dL (3.5-5.0); ALT/SGPT 20 U/L (21-72); AST/SGOT 33 U/L (17-59); BLOOD UREA NITROGEN 21 mg/dl (9-20); CALCIUM 7.9 mg/dL (8.4-10.2); GFR NON-AFRICAN AMERICAN > 60
[2018-07-25 08:08] LABS: HEMOGLOBIN 9.5 g/dL (12.0-18.0); MEAN CELL VOLUME 117.8 fl (80.0-94.0); MEAN CORPUSCULAR HEMOGLOBIN 44.9 pg (27.0-31.0); MEAN CORPUSCULAR HGB CONC 38.1 g/dL (33.0-37.0); RBC 2.12 Mil/uL (4.40-5.90); WHITE BLOOD COUNT 10.7 K/uL (4.8-10.8)
[2018-07-25] MEDS ORDERED: Ergocalciferol 50,000 Intl Units Cap PO SCH (09:00)
[2018-07-25] MEDS: Metoprolol Succinate 50 mg XL Tab PO SCH (09:52)
--- NOTE | 2018-07-25 23:39 | CP.PCM.PN ---
Subjective - Date & Time of Evaluation Date of Evaluation: 07/25/18 Time of Evaluation: 11:00 - Subjective Subjective: patient seen and examined at bedside interim events noted no complaints offered pRBC transfused yesterday denies cp/sob/palpitations/dizziness Objective - Vital Signs/Intake and Output Vital Signs (last 24 hours): Temp Pulse Resp BP Pulse Ox 97.7 F 63 20 153/71 H 98 07/25/18 16:43 07/25/18 16:43 07/25/18 16:43 07/25/18 16:43 07/25/18 16:43 Intake and Output: 07/25/18 07/26/18 18:59 06:59 Intake Total 1000 Output Total 600 Balance 400 - Medications Medications: Current Medications Acetaminophen (Tylenol 325mg Tab) 650 mg PO Q6 PRN PRN Reason: Pain, moderate (4-7) Last Admin: 07/25/18 00:26 Dose: 650 mg Carbidopa/Levodopa (Sinemet) 1 tab PO BID@0700,1200 [facility] Last Admin: 07/25/18 13:08 Dose: 1 tab Docusate Sodium (Colace) 100 mg PO BID [facility] Last Admin: 07/25/18 17:37 Dose: 100 mg Donepezil HCl (Aricept) 5 mg PO HS [facility] Last Admin: 07/25/18 22:00 Dose: 5 mg Ergocalciferol (Drisdol 50,000 Intl Units Cap) 1 cap PO SUN [facility] Last Admin: 07/25/18 09:52 Dose: 1 cap Losartan Potassium (Cozaar) 100 mg PO DAILY [facility] Last Admin: 07/25/18 09:51 Dose: 100 mg Memantine (Namenda) 5 mg PO BID [facility] Last Admin: 07/25/18 17:37 Dose: 5 mg Metoprolol Succinate (Toprol Xl) 50 mg PO DAILY [facility] Last Admin: 07/25/18 09:52 Dose: 50 mg Tamsulosin HCl (Flomax) 0.4 mg PO QPM [facility] Last Admin: 07/25/18 22:00 Dose: 0.4 mg - Labs Labs: 07/25/18 05:25 07/25/18 05:25 PT 12.5 Seconds (9.8-13.1) 07/24/18 06:30 INR 1.1 07/24/18 06:30 APTT 29.1 Seconds (25.6-37.1) 07/24/18 06:30 - Constitutional Appears: Non-toxic, No Acute Distress - Head Exam Head Exam: NORMAL INSPECTION - Eye Exam Eye Exam: Normal appearance - Respiratory Exam Respiratory Exam: NORMAL BREATHING PATTERN - Cardiovascular Exam Cardiovascular Exam: +S1, +S2 - GI/Abdominal Exam GI & Abdominal Exam: Soft - Neurological Exam Neurological Exam: Alert, Awake - Psychiatric Exam Psychiatric exam: Normal Affect, Normal Mood - Skin Skin Exam: Normal Color, Warm Assessment and Plan - Assessment and Plan (Free Text) Assessment: 82 y/o male with worsening of dementia admitted due to s/p TURP and started having hematuria with clots. Improved. plan monitor labs monitor vitals all available diagnostic data reviewed urology on board meds as ordered rest of plan as ordered
[2018-07-26 07:05] LABS: ALB/GLOB RATIO 0.8 (1.0-2.1); ALBUMIN 2.7 g/dL (3.5-5.0); ALT/SGPT 29 U/L (21-72); AST/SGOT 25 U/L (17-59); BLOOD UREA NITROGEN 17 mg/dl (9-20); GFR NON-AFRICAN AMERICAN > 60
[2018-07-26 07:26] LABS: MEAN CELL VOLUME 115.3 fl (80.0-94.0); MEAN CORPUSCULAR HEMOGLOBIN 44.9 pg (27.0-31.0); MEAN CORPUSCULAR HGB CONC 38.9 g/dL (33.0-37.0); RBC 2.23 Mil/uL (4.40-5.90); RED CELL DISTRIBUTION WIDTH 16.5 % (11.5-14.5); WHITE BLOOD COUNT 9.1 K/uL (4.8-10.8)
[2018-07-26] MEDS: Metoprolol Succinate 50 mg XL Tab PO SCH (08:33)
[2018-07-27] MEDS: Metoprolol Succinate 50 mg XL Tab PO SCH (08:46)
--- NOTE | 2018-07-28 08:08 | CP.PCM.PN ---
Subjective - Date & Time of Evaluation Date of Evaluation: 07/28/18 Time of Evaluation: 08:06 - Subjective Subjective: urology underwood removed yesterday pt voiding spontaneously . gu ok for transfer to tcu when medically stable Objective - Vital Signs/Intake and Output Vital Signs (last 24 hours): Temp Pulse Resp BP Pulse Ox 98 F 61 19 146/69 99 07/28/18 00:31 07/28/18 00:31 07/28/18 00:31 07/28/18 00:31 07/28/18 00:31 Intake and Output: 07/28/18 07/28/18 06:59 18:59 Output Total 150 Balance -150 - Medications Medications: Current Medications Acetaminophen (Tylenol 325mg Tab) 650 mg PO Q6 PRN PRN Reason: Pain, moderate (4-7) Last Admin: 07/25/18 00:26 Dose: 650 mg Carbidopa/Levodopa (Sinemet) 1 tab PO BID@0700,1200 [facility] Last Admin: 07/27/18 12:41 Dose: 1 tab Docusate Sodium (Colace) 100 mg PO BID [facility] Last Admin: 07/27/18 17:09 Dose: 100 mg Donepezil HCl (Aricept) 5 mg PO HS [facility] Last Admin: 07/27/18 21:56 Dose: 5 mg Ergocalciferol (Drisdol 50,000 Intl Units Cap) 1 cap PO SUN [facility] Last Admin: 07/25/18 09:52 Dose: 1 cap Losartan Potassium (Cozaar) 100 mg PO DAILY [facility] Last Admin: 07/27/18 08:46 Dose: 100 mg Memantine (Namenda) 5 mg PO BID [facility] Last Admin: 07/27/18 17:09 Dose: 5 mg Metoprolol Succinate (Toprol Xl) 50 mg PO DAILY [facility] Last Admin: 07/27/18 08:46 Dose: 50 mg Tamsulosin HCl (Flomax) 0.4 mg PO QPM [facility] Last Admin: 07/27/18 17:09 Dose: 0.4 mg - Labs Labs: 07/26/18 06:15 07/26/18 06:15 PT 12.5 Seconds (9.8-13.1) 07/24/18 06:30 INR 1.1 07/24/18 06:30 APTT 29.1 Seconds (25.6-37.1) 07/24/18 06:30
[2018-07-28 08:13] VITALS: BP 144/62; PULSE 67; RESP 20; TEMP 97.7; O2SAT 97
[2018-07-28] MEDS: Metoprolol Succinate 50 mg XL Tab PO SCH (08:28)
--- NOTE | 2018-07-28 18:30 | CP.PCM.DIS ---
Provider - Provider Date of Admission: 07/23/18 16:53 Attending physician: Joe Teran MD Consults: 07/24/18 10:45 Urology Consult Routine Comment: Consulting Provider: Caroline Shearer Consulting Physician: Caroline Shearer Reason for Consult: evac of clot Time Spent in preparation of Discharge (in minutes): 35 Diagnosis - Discharge Diagnosis (1) Parkinsons disease Status: Chronic (2) Hematuria Status: Resolved Hospital Course - Lab Results Lab Results: Most Recent Lab Values WBC 9.1 K/uL (4.8-10.8) 07/26/18 06:15 RBC 2.23 Mil/uL (4.40-5.90) L 07/26/18 06:15 Hgb 10.0 g/dL (12.0-18.0) L 07/26/18 06:15 Hct 25.7 % (35.0-51.0) L 07/26/18 06:15 MCV 115.3 fl (80.0-94.0) H D 07/26/18 06:15 MCH 44.9 pg (27.0-31.0) H 07/26/18 06:15 MCHC 38.9 g/dL (33.0-37.0) H 07/26/18 06:15 RDW 16.5 % (11.5-14.5) H 07/26/18 06:15 Plt Count 213 K/uL (130-400) 07/26/18 06:15 PT 12.5 Seconds (9.8-13.1) 07/24/18 06:30 INR 1.1 07/24/18 06:30 APTT 29.1 Seconds (25.6-37.1) 07/24/18 06:30 Sodium 141 mmol/l (132-148) 07/26/18 06:15 Potassium 3.9 MMOL/L (3.6-5.0) 07/26/18 06:15 Chloride 111 mmol/L (98-107) H 07/26/18 06:15 Carbon Dioxide 23 mmol/L (22-30) 07/26/18 06:15 Anion Gap 11 (10-20) 07/26/18 06:15 BUN 17 mg/dl (9-20) 07/26/18 06:15 Creatinine 1.0 mg/dl (0.8-1.5) 07/26/18 06:15 Est GFR ( Amer) > 60 07/26/18 06:15 Est GFR (Non-Af Amer) > 60 07/26/18 06:15 Random Glucose 96 mg/dL (75-110) 07/26/18 06:15 Calcium 8.0 mg/dL (8.4-10.2) L 07/26/18 06:15 Total Bilirubin 1.3 mg/dl (0.2-1.3) 07/26/18 06:15 AST 25 U/L (17-59) 07/26/18 06:15 ALT 29 U/L (21-72) 07/26/18 06:15 Alkaline Phosphatase 62 U/L (38-126) 07/26/18 06:15 Total Protein 5.9 G/DL (6.3-8.2) L 07/26/18 06:15 Albumin 2.7 g/dL (3.5-5.0) L 07/26/18 06:15 Globulin 3.2 gm/dL (2.2-3.9) 07/26/18 06:15 Albumin/Globulin Ratio 0.8 (1.0-2.1) L 07/26/18 06:15 - Hospital Course Hospital Course: Pt is a 83 y/o male admitted due to gross hematuria after TURP. Pt was found t have hemoglobin of 7.6 and was transfused 1 unit PRBC. He was evaluated by Urologist as he was retaining urine and had underwood placed which was removed prior to discharge and patient was voiding independently. He was continued on Flomax and started on Oxybutinin. He was also noted to have new diagnosis of Parkinsons and started on Memantin. Upon evaluation by PT, he was noted to have poor mobility and was discharged to subacute rehab. Discharge Exam - Head Exam Head Exam: NORMAL INSPECTION - Eye Exam Eye Exam: Normal appearance - ENT Exam ENT Exam: Mucous Membranes Moist - Respiratory Exam Respiratory Exam: Clear to PA & Lateral - Cardiovascular Exam Cardiovascular Exam: REGULAR RHYTHM - GI/Abdominal Exam GI & Abdominal Exam: Normal Bowel Sounds, Soft. absent: Tenderness - Neurological Exam Neurological exam: Alert, Oriented x3 - Psychiatric Exam Psychiatric exam: Normal Affect - Skin Skin Exam: Normal Color Discharge Plan - Follow Up Plan Condition: FAIR Disposition: REHAB FACILITY/REHAB UNIT Instructions: Preventing Falls in the Older Adult, Blood in the Urine (Hematuria), Adult (DC), Urinary Incontinence, Male (DC) Referrals: Caroline Shearer MD [Medical Doctor] -
--- NOTE | 2018-08-01 22:01 | PQF ---
PROVIDER RESPONSE TEXT: Gross hematuria s/p TURP resulting in anemia requiring pRBC transfusion. REVIEWER QUERY TEXT: Clinical Significance Please clarify if there is an associated dx. to go along with the following Hematology labs: in a pat ient admitted with worsening of dementia admitted due to s/p TURP and started having hematuria with c lots. H/H: 8.0/19.1->7.6/11.8->9.5/25.0->10/25.7 -- OR: Disagree -- Unable to determine -- Other, please specify 07/23 Nurses notes: 21:00. Called Anesthesiologist to clarify blood transfusion order of Dr. Doug garcia. Spoke to Dr. Vivas, [employer] Anesthesiologist. Blood transfusion order stopped. 07/25 Nurses Notes: Blood transfusion completed. No adverse effects noted. VS remain stabl e, as follows : T 97.8F, P 76, RR 17, BP 123/68. -Op note pending The patient's Clinical Indicators include: -- Query created by: Ivelisse Stephens 07/26/2018 8:50 AM Electronically signed by: Joe Teran 08/01/2018 9:59 PM
--- NOTE | 2018-08-01 22:02 | PQF ---
PROVIDER RESPONSE TEXT: Parkinsons Disease REVIEWER QUERY TEXT: Medication Correlation for Diagnosis Your help is needed in capturing diagnoses for the corresponding medications ordered. Please clarify in the documentation diagnoses for the following medication(s). Medication:Sinemet The patient's Clinical Indicators include: -- Query created by: Ivelisse Stephens on 07/26/2018 8:54 AM Electronically signed by: Joe Teran 08/01/2018 9:59 PM
--- NOTE | 2018-08-05 07:38 | OP ---
PROCEDURE DATE: 07/23/2018 PREOPERATIVE DIAGNOSIS: Gross hematuria. POSTOPERATIVE DIAGNOSIS: Gross hematuria. PROCEDURE PERFORMED: Cystoscopy. SURGEON: Caroline Shearer MD. DESCRIPTION OF PROCEDURE: The patient was placed on the operating room table in a supine position. At this time, I used 2% local lidocaine for anesthetic effect. Did a flexible cystoscopy on the patient. There appears to be significant prostate hyperemia and occlusion secondary to BPH. In the bladder, there was no evidence of any bladder wall lesions. There were no polyps. There was no active bleeding at the site of the bladder. Ureteral orifices were identified effluxing clear urine. Once I established that this hematuria is probably from hyperemic enlarged prostate, then the cystoscope was removed. The patient was taken from the operating room in good condition. Caroline Shearer MD
== END 2018-07-28 15:00 | DRG 921 ==
LOC: H.ER 16:46 → H.ERHOLD 16:53 → H.ER 17:25 → H.MEDSURG1 20:29
PROVIDERS: ADMIT Family Medicine; ATTEND Family Medicine
PROC: 0TJB8ZZ Inspection of Bladder, Via Natural or Artificial Opening Endoscopic (ICD-10-PCS; 2018-07-23)
PROC: 30233N1 Transfusion of Nonautologous Red Blood Cells into Peripheral Vein, Percutaneous Approach (ICD-10-PCS; principal; 2018-07-24)
DX: N99.820 Postprocedural hemorrhage of a genitourinary system organ or structure following a genitourinary system procedure (principal); R31.0 Gross hematuria; D50.0 Iron deficiency anemia secondary to blood loss (chronic); N32.89 Other specified disorders of bladder; G20 Parkinson's disease; F02.80 Dementia in other diseases classified elsewhere, unspecified severity, without behavioral disturbance, psychotic disturbance, mood disturbance, and anxiety; I10 Essential (primary) hypertension; Y83.8 Other surgical procedures as the cause of abnormal reaction of the patient, or of later complication, without mention of misadventure at the time of the procedure; Z98.890 Other specified postprocedural states; Z79.82 Long term (current) use of aspirin

== ENCOUNTER 2018-07-28 13:32 | Inpatient (IN) | payer MEDICARE, OTHER ==
[2018-07-28 14:38] VITALS: BMI 25.8
--- NOTE | 2018-07-28 17:49 | PCM.OPOC ---
Physiatry Overall Plan of Care - Overall Plan of Care Estimated Length of Stay in Weeks: 2 Rehab Impairment: Mobility, Gait, Balance, Coordination Etiologic Diagnosis: Other (Parkinson's disease) Rehab/Medical Prognosis: Fair - Anticipated Interventions Physical Therapy:: Yes Occupational Therapy:: Yes Speech Therapy:: No Recreational Therapy:: Yes - Therapy Goals Bed Mobility: Supervision Ambulation: Supervision Functional Positional Changes:: Supervision - Discharge Plan Identification of Barriers to Discharge: Home Situation Discharge Destination: Home
--- NOTE | 2018-07-28 17:51 | CP.PCM.CON ---
History of Present Illness - History of Present Illness History of Present Illness: Dr Gaines PMR consultation on Zac Burciaga, born 1935 who has been admitted to [facility] for acute inpatient rehabilitation with new onset Parkinson's disease and a decrease in function. Review of Systems - Constitutional Constitutional: absent: Chills - EENT Eyes: absent: Blurred Vision Ears: absent: Ear Discharge, Ear Pain Nose/Mouth/Throat: absent: Nasal Congestion - Cardiovascular Cardiovascular: absent: Chest Pain - Respiratory Respiratory: absent: Dyspnea - Gastrointestinal Gastrointestinal: absent: Abdominal Pain, Belching - Musculoskeletal Musculoskeletal: Abnormal Gait. absent: Back Pain - Integumentary Integumentary: absent: Bleeding Lesions - Neurological Neurological: absent: Abnormal Movements, Numbness Past Patient History - Past Medical History & Family History Past Medical History?: Yes - Past Social History Smoking Status: Never Smoked Home Situation {Lives}: With Family (elevator) - CARDIAC Hx Cardiac Disorders: Yes Hx Hypertension: Yes - PULMONARY Hx Respiratory Disorders: No - NEUROLOGICAL Hx Neurological Disorder: Yes Hx Dementia: Yes Hx Parkinson's Disease: Yes - HEENT Hx HEENT Problems: Yes Hx Cataracts: Yes (HX ANTIONE CATARACT SX) - RENAL Hx Chronic Kidney Disease: No - ENDOCRINE/METABOLIC Hx Endocrine Disorders: No - HEMATOLOGICAL/ONCOLOGICAL Hx AIDS: No Hx Human Immunodeficiency Virus (HIV): No - INTEGUMENTARY Hx Dermatological Problems: No - MUSCULOSKELETAL/RHEUMATOLOGICAL Hx Musculoskeletal Disorders: Yes Hx Falls: Yes - GASTROINTESTINAL Hx Gastrointestinal Disorders: No - GENITOURINARY/GYNECOLOGICAL Hx Genitourinary Disorders: Yes Hx Hematuria: Yes (S/P CYSTOSCOPY AND EVACUATION OF CLOTS109/22/2017) Hx Incontinence: Yes Hx Prostate Problems: Yes (S/P TURP) - PSYCHIATRIC Hx Substance Use: No - SURGICAL HISTORY Hx Surgeries: Yes Hx Cataract Extraction: Yes Other/Comment: TURP - ANESTHESIA Hx Anesthesia: Yes Hx Anesthesia Reactions: No Hx Malignant Hyperthermia: No Has any member of the family had a problem w/ anesthesia?: No Meds Allergies/Adverse Reactions: Allergies Allergy/AdvReac Type Severity Reaction Status Date / Time No Known Allergies Allergy Verified 07/28/18 15:34 - Medications Medications: Current Medications Aspirin (Ecotrin) 81 mg PO DAILY [facility] Carbidopa/Levodopa (Sinemet) 1 tab PO BID@0700,1200 [facility] Docusate Sodium (Colace) 100 mg PO BID [facility] Last Admin: 07/28/18 17:36 Dose: 100 mg Donepezil HCl (Aricept) 5 mg PO HS [facility] Ergocalciferol (Drisdol 50,000 Intl Units Cap) 1 cap PO SUN [facility] Losartan Potassium (Cozaar) 100 mg PO DAILY [facility] Memantine (Namenda) 5 mg PO BID [facility] Last Admin: 07/28/18 17:37 Dose: 5 mg Metoprolol Succinate (Toprol Xl) 50 mg PO DAILY [facility] Oxybutynin Chloride (Ditropan Tab) 5 mg PO BID [facility] Last Admin: 07/28/18 17:36 Dose: 5 mg Tamsulosin HCl (Flomax) 0.4 mg PO HS [facility] Physical Exam - Constitutional Appears: Non-toxic, No Acute Distress - Head Exam Head Exam: ATRAUMATIC, NORMAL INSPECTION, NORMOCEPHALIC - Eye Exam Eye Exam: EOMI - ENT Exam ENT Exam: Mucous Membranes Moist - Respiratory Exam Respiratory Exam: NORMAL BREATHING PATTERN - Cardiovascular Exam Cardiovascular Exam: REGULAR RHYTHM - GI/Abdominal Exam GI & Abdominal Exam: Distended. absent: Firm - Extremities Exam Extremities exam: Negative for: calf tenderness, joint swelling - Neurological Exam Neurological exam: Alert, CN II-XII Intact, Oriented x3 - Psychiatric Exam Psychiatric exam: Flat Affect, Normal Mood - Skin Skin Exam: Warm Results - Vital Signs Recent Vital Signs: Last Vital Signs Temp Pulse 68 07/28/18 15:52 Resp 19 07/28/18 15:52 BP Pulse Ox 97 07/28/18 15:52 Assessment & Plan - Assessment and Plan (Free Text) Assessment: PT/OT to continue to help increase functional independence Team conference for d/c planning Pain: controlled Vascular: no evidence of DVT GI: No evidence of constipation or diarrhea Neuro has seen Zac and is treating the Parkinson's disease Patient is an excellent acute rehabilitation candidate and will have focused PT, OT and recreational therapy to help facilitate a safe and appropriate d/c plan Impairment code 03.2
[2018-07-29] MEDS: Metoprolol Succinate 50 mg XL Tab PO SCH (08:54)
--- NOTE | 2018-07-29 16:46 | CP.PCM.PN ---
Subjective - Date & Time of Evaluation Date of Evaluation: 07/29/18 Time of Evaluation: 16:45 - Subjective Subjective: Patient seen in PT. using the recumbent bike denies sob/cp happy with attention and care to this point continue current care Objective - Vital Signs/Intake and Output Vital Signs (last 24 hours): Temp Pulse Resp BP Pulse Ox 98.0 F 80 20 144/76 100 07/29/18 08:23 07/29/18 08:54 07/29/18 08:23 07/29/18 08:54 07/29/18 08:51 - Medications Medications: Current Medications Aspirin (Ecotrin) 81 mg PO DAILY [facility] Last Admin: 07/29/18 08:54 Dose: 81 mg Carbidopa/Levodopa (Sinemet) 1 tab PO BID@0700,1200 [facility] Last Admin: 07/29/18 12:05 Dose: 1 tab Docusate Sodium (Colace) 100 mg PO BID [facility] Last Admin: 07/29/18 08:54 Dose: 100 mg Donepezil HCl (Aricept) [address] [facility] Last Admin: 07/28/18 22:00 Dose: 5 mg Ergocalciferol (Drisdol 50,000 Intl Units Cap) 1 cap PO [facility] Losartan Potassium (Cozaar) 100 mg PO DAILY [facility] Last Admin: 07/29/18 08:54 Dose: 100 mg Memantine (Namenda) 5 mg PO BID [facility] Last Admin: 07/29/18 08:53 Dose: 5 mg Metoprolol Succinate (Toprol Xl) 50 mg PO DAILY [facility] Last Admin: 07/29/18 08:54 Dose: 50 mg Oxybutynin Chloride (Ditropan Tab) 5 mg PO BID [facility] Last Admin: 07/29/18 08:54 Dose: 5 mg Tamsulosin HCl (Flomax) 0.[address] [facility] Last Admin: 07/28/18 22:00 Dose: 0.4 mg
[2018-07-30] MEDS: Metoprolol Succinate 50 mg XL Tab PO SCH (08:24)
--- NOTE | 2018-07-30 08:52 | CP.PCM.HP ---
History of Present Illness - History of Present Illness History of Present Illness: Pt is a 83 y/o male admitted due to gross hematuria after TURP. He was also noted to have new diagnosis of Parkinsons and started on Memantin. Upon evaluation by PT, he was noted to have poor mobility and was discharged to subacute rehab. Present on Admission - Present on Admission Any Indicators Present on Admission: No Past Patient History - Past Medical History & Family History Past Medical History?: Yes - Past Social History Smoking Status: Never Smoked Home Situation {Lives}: With Family (elevator) - CARDIAC Hx Hypertension: Yes - PULMONARY Hx Respiratory Disorders: No - NEUROLOGICAL Hx Neurological Disorder: Yes Hx Dementia: Yes Hx Parkinson's Disease: Yes - HEENT Hx HEENT Problems: Yes Hx Cataracts: Yes (HX ANTIONE CATARACT SX) - RENAL Hx Chronic Kidney Disease: No - ENDOCRINE/METABOLIC Hx Endocrine Disorders: No - HEMATOLOGICAL/ONCOLOGICAL Hx AIDS: No Hx Human Immunodeficiency Virus (HIV): No - INTEGUMENTARY Hx Dermatological Problems: No - MUSCULOSKELETAL/RHEUMATOLOGICAL Hx Arthritis: Yes - GASTROINTESTINAL Hx Gastrointestinal Disorders: No - GENITOURINARY/GYNECOLOGICAL Hx Genitourinary Disorders: Yes Hx Hematuria: Yes (S/P CYSTOSCOPY AND EVACUATION OF CLOTS109/22/2017) Hx Incontinence: Yes Hx Prostate Problems: Yes (S/P TURP) - PSYCHIATRIC Hx Substance Use: No - SURGICAL HISTORY Hx Surgeries: Yes Hx Cataract Extraction: Yes Other/Comment: TURP - ANESTHESIA Hx Anesthesia: Yes Hx Anesthesia Reactions: No Hx Malignant Hyperthermia: No Has any member of the family had a problem w/ anesthesia?: No Meds Allergies/Adverse Reactions: Allergies Allergy/AdvReac Type Severity Reaction Status Date / Time No Known Allergies Allergy Verified 07/28/18 15:34 Physical Exam - Constitutional Appears: No Acute Distress - Head Exam Head Exam: NORMOCEPHALIC - Eye Exam Eye Exam: Normal appearance - ENT Exam ENT Exam: Mucous Membranes Moist - Respiratory Exam Respiratory Exam: Clear to Auscultation Bilateral - Cardiovascular Exam Cardiovascular Exam: REGULAR RHYTHM - Extremities Exam Extremities exam: Positive for: normal inspection - Psychiatric Exam Psychiatric exam: Normal Affect - Skin Skin Exam: Normal Color Results - Vital Signs Recent Vital Signs: Last Vital Signs Temp 98.2 F 07/30/18 08:22 Pulse 64 07/30/18 08:25 Resp 18 12/07/18 08:22 BP 109/55 L 12/07/18 08:25 Pulse Ox 99 07/30/18 08:22 - Labs Result Diagrams: 08/02/18 05:35 08/02/18 05:35 Assessment & Plan - Assessment and Plan (Free Text) Assessment: Pt is a 83 y/o male admitted due to gross hematuria after TURP. He was also noted to have new diagnosis of Parkinsons and started on Memantin. Upon evaluation by PT, he was noted to have poor mobility and was discharged to subacute rehab. C/W home meds: ASA, Mamenta, Colace, Aricept, Losartan, Metroprolol C/W PT Montitor Vitals
--- NOTE | 2018-07-30 18:06 | CP.PCM.PN ---
Subjective - Date & Time of Evaluation Date of Evaluation: 07/30/18 Time of Evaluation: 18:05 - Subjective Subjective: Patient seen in the room noted that he is good good UE strength present no cough or CP continue current care team conf next week for d/c planning Objective - Vital Signs/Intake and Output Vital Signs (last 24 hours): Temp Pulse Resp BP Pulse Ox 98.2 F 74 18 109/55 L 98 07/30/18 08:22 07/30/18 08:48 07/30/18 08:22 07/30/18 08:25 07/30/18 08:48 - Medications Medications: Current Medications Aspirin (Ecotrin) 81 mg PO DAILY [facility] Last Admin: 07/30/18 08:24 Dose: 81 mg Carbidopa/Levodopa (Sinemet) 1 tab PO BID@0700,1200 [facility] Last Admin: 07/30/18 12:55 Dose: 1 tab Docusate Sodium (Colace) 100 mg PO BID [facility] Last Admin: 07/30/18 16:22 Dose: 100 mg Donepezil HCl (Aricept) 5 mg PO HS [facility] Last Admin: 07/29/18 21:16 Dose: 5 mg Ergocalciferol (Drisdol 50,000 Intl Units Cap) 1 cap PO SUN [facility] Losartan Potassium (Cozaar) 100 mg PO DAILY [facility] Memantine (Namenda) 5 mg PO BID [facility] Last Admin: 07/30/18 16:22 Dose: 5 mg Metoprolol Succinate (Toprol Xl) 50 mg PO DAILY [facility] Oxybutynin Chloride (Ditropan Tab) 5 mg PO BID [facility] Last Admin: 07/30/18 16:22 Dose: 5 mg Tamsulosin HCl (Flomax) 0.4 mg PO HS [facility] Last Admin: 07/29/18 21:16 Dose: 0.4 mg
[2018-07-31] MEDS: Metoprolol Succinate 50 mg XL Tab PO SCH (09:26)
[2018-08-01] MEDS: Metoprolol Succinate 50 mg XL Tab PO SCH (08:47)
[2018-08-01] MEDS: Ergocalciferol 50,000 Intl Units Cap PO SCH (08:48)
[2018-08-02 06:31] LABS: PROTHROMBIN TIME 11.8 Seconds (9.8-13.1)
[2018-08-02 06:45] LABS: ALB/GLOB RATIO 0.9 (1.0-2.1); ALBUMIN 3.3 g/dL (3.5-5.0); ALT/SGPT 29 U/L (21-72); AST/SGOT 21 U/L (17-59); BLOOD UREA NITROGEN 29 mg/dl (9-20); CALCIUM 8.4 mg/dL (8.4-10.2); GFR NON-AFRICAN AMERICAN 58
[2018-08-02 07:44] LABS: HEMOGLOBIN 9.7 g/dL (12.0-18.0); MEAN CORPUSCULAR HEMOGLOBIN 53.6 pg (27.0-31.0); MEAN CORPUSCULAR HGB CONC 41.9 g/dL (33.0-37.0); RBC 1.81 Mil/uL (4.40-5.90); RED CELL DISTRIBUTION WIDTH 17.6 % (11.5-14.5); WHITE BLOOD COUNT 9.2 K/uL (4.8-10.8)
[2018-08-02 07:47] LABS: MEAN CELL VOLUME 127.9 fl (80.0-94.0)
[2018-08-02] MEDS: Metoprolol Succinate 50 mg XL Tab PO SCH (08:29)
--- NOTE | 2018-08-02 18:00 | CP.PCM.PN ---
Subjective - Date & Time of Evaluation Date of Evaluation: 08/02/18 Time of Evaluation: 18:00 - Subjective Subjective: Patient seen in the room doing ok ambulating 125' with RW and CS denies pain continue current care Objective - Vital Signs/Intake and Output Vital Signs (last 24 hours): Temp Pulse Resp BP Pulse Ox 98.1 F 76 18 105/53 L 98 08/02/18 08:26 08/02/18 15:56 08/02/18 08:26 08/02/18 08:29 08/02/18 15:56 - Medications Medications: Current Medications Aspirin (Ecotrin) 81 mg PO DAILY [facility] Last Admin: 08/02/18 08:28 Dose: 81 mg Carbidopa/Levodopa (Sinemet) 1 tab PO BID@0700,1200 [facility] Last Admin: 08/02/18 12:20 Dose: 1 tab Docusate Sodium (Colace) 100 mg PO BID [facility] Last Admin: 08/02/18 16:55 Dose: Not Given Donepezil HCl (Aricept) 5 mg PO HS [facility] Last Admin: 08/01/18 21:05 Dose: 5 mg Ergocalciferol (Drisdol 50,000 Intl Units Cap) 1 cap PO SUN [facility] Last Admin: 08/01/18 08:48 Dose: 1 cap Losartan Potassium (Cozaar) 100 mg PO DAILY [facility] Last Admin: 08/02/18 08:28 Dose: 100 mg Memantine (Namenda) 5 mg PO BID [facility] Last Admin: 08/02/18 17:59 Dose: 5 mg Metoprolol Succinate (Toprol Xl) 50 mg PO DAILY [facility] Last Admin: 08/02/18 08:29 Dose: 50 mg Oxybutynin Chloride (Ditropan Tab) 5 mg PO BID [facility] Last Admin: 08/02/18 17:58 Dose: 5 mg Tamsulosin HCl (Flomax) 0.4 mg PO HS [facility] Last Admin: 08/01/18 21:05 Dose: 0.4 mg - Labs Labs: 08/02/18 05:35 08/02/18 05:35 PT 11.8 Seconds (9.8-13.1) 08/02/18 05:35 INR 1.0 08/02/18 05:35
[2018-08-03] MEDS: Metoprolol Succinate 50 mg XL Tab PO SCH (08:46)
--- NOTE | 2018-08-03 13:20 | PCM.PSYTMC ---
Acute Rehab Team Conference - - Vital Signs: Vital Signs (Last 8 Hours): Vital Signs 08/03/18 08/03/18 08/03/18 08:15 08:44 08:46 Temperature 97.5 F L Pulse Rate 70 70 70 Respiratory Rate Blood Pressure 132/71 132/71 132/71 O2 Sat by Pulse 20 L Oximetry 08/03/18 09:00 Temperature 97.5 F L Pulse Rate 70 Respiratory 20 Rate Blood Pressure 132/71 O2 Sat by Pulse Oximetry Pain: 0 - Precautions: Precautions: Fall Prevention - Medications/Other Issues: Comment: incontinent of urine and stool forgetful and disoriented - Consults: Comment: DR Gaines,Dr Angel - Toileting: Toileting: Contact Guard - Bladder Management: Bladder Pattern: Incontinent Voiding Method: Toilet, Urinal Bladder Management: Minimal Assistance - Transfers: Transfers: Minimal Assistance - ADL's: ADL's: Moderate Assistance - Pain Management: Other Intervention:: denies any pain - Patient/Family Teaching: Other Intervention:: safety fall monitor urine for bleeding - Goals/Time Frame: Comment: as per multidiciplinary plan of care - Provider: Registered Nurse:: Lakeisha Tilley Physical Therapy - Bed Mobility Bed Mobility: Verbal Cues, Contact Guard, Minimal Assistance - Transfers Wheelchair to Mat: Verbal Cues, Contact Guard, Minimal Assistance Sit to Stand: Supervision, Verbal Cues, Contact Guard Comment: cues for pivot transfers 2' to shuffling & freezing with cues for proper hand placement - Ambulation Level of Assistance: Supervision, Verbal Cues, Contact Guard Distance (ft.): 140 Assistive Devices: N/A, Rolling Walker Orthoses: n/a Comment: 125 feet with B [employer] with CG/CS. -encouraging alternating reciprocal arm swing and increased amplitude and speed of gait. -125 feet with RW with CG with periods of CS. -VCs for increased amplitude of movement and increased speed. -forward flexion with shuffling noted at times (R>L), demonstrates decreasing step length on R before the L; requires VCs for upright gaze. -step size and height decrease and shuffling increases when patient needs to make turns or negotiation obstacles. -auditory cueing provided during training for timing to improve initiation as well as to increase amplitude of movement - Stair Negotiation Stairs: Level of Assistance: Supervision, Contact Guard Number of Stairs: 8 - Standing Balance Static Stand: Supervision Comment: impaired balance reactions with forward flexed posture - Pain Pain (assessed during therapy session): 0 Comment: pt denies - Insight/Carryover Insight/Carryover: Fair - Patient/Family Education Comment: safety, therapy schedule, therapy goals, mobility, transfers, use of call casillas, postural control, energy conservation, postural control, increasing amplitude of movements - Assessment/Plan Assessment: Mr. Burciaga continues to have fluctuating vitals including heart rate and blood pressure during PT treatment but RN is aware and patient is asymptomatic. Patient requires cues to increase movement size and to improve postural control during tasks. Patient is at high risk of falls 2' to shuffling, impaired turning and unsteady postural control with impaired balance reactions. PT recommends continued skilled therapy to continue addressing skilled needs s/p new diagnosis of PD. PT recommends home discharge with 24 hour supervision/assist as needed with a RW and transport WC. PT recommends initiation of continued PT in the home setting progressing to an outpatient [facility] treatment center. Pt returned to room at end of session with all needs met, call casillas in reach, daughter at bedside and RN aware of patient's position. - Goals Timeframe: 7 days Goals: bed/mat mobility with CS. transfers with CS with RW. gait x 150 feet with RW with CS without freezing or shuffling - Provider Physical Therapist:: Heather Mccabe License Number:: [id number] Occupational Therapy - Arousal/Attention/Orientation Level of Consciousness: Awake, Alert, Forgetful, Disoriented Patient Orientation: Person Assessment Comment: -disoriented to place, situation, month/year. -however pt able to state name of president [facility] - ADL/IADL Self Feeding: Supervision, Verbal Cues, Set-up Help Grooming: Supervision, Verbal Cues, Set-up Help Bathing-Upper Ext: Supervision, Verbal Cues, Set-up Help Bathing-Lower Ext: Verbal Cues, Set-up Help, Minimal Assistance, Moderate Assistance Dressing-Upper Ext: Verbal Cues, Set-up Help, Minimal Assistance Dressing-Lower Ext: Verbal Cues, Set-up Help, Minimal Assistance Homemaking: Not Applicable Comment: Pt needs reminders to dress RLE first. Pt fatigues easily thus needs frequnet rest breaks - Sitting Balance Static Sitting: Supervision Dynamic Sitting: Reaches across midline, Reaches out of base of support, Reaches within base of support, Contact Guard Assist Comment: unsupported @ edge of bed - Transfers Wheelchair to Bed Transfers: Verbal Cues, Set-up Help, Contact Guard, Minimal Assistance Toilet Transfers: Verbal Cues, Set-up Help, Contact Guard Comment: shower transfers: min assist and verbal cues for hand placement, to step & reach back before sitting - Wheelchair Management Level of Assistance: Moderate Assistance Distance (ft.): 50 - Upper Extremity Status Right Upper Extremity Comment: AROM is WFLS Left Upper Extremity Comment: AROM is WFLS - Pain Pain (assessed during therapy session): 0 - Insight/Carryover Insight/Carryover: Fair - Patient/Family Education Comment: Pt/Pt's daughter educated on the following: -adls, transfers/mobility training using adaptive/compensatory strategies energy conservation. -educated on uses/applications of commode, shower chair vs transfer tub bench with back. -rehab/OT goals, plan of care. -w/c propulsion/management for safety. -use of call acsillas for safety, maintain w/c and bed alarm. -pt's daughter assist with adls, transfers with supervision/cues from therapist--to continue caregiver education for safe transition home with care and 24 hour care. -toileting whitley renner - Assessment/Plan Assessment: Patient is a 83 year old [place] male with dx: Parkinson, new onset. *Precautions: falls(bed & w/c alarm), cardiac, monitor vitals. Pt limited by impaired cognition, impaired strength/endurance, impaired standing balance/tolerance, impaired safety awareness, impaired knowledge of adaptive/ccompensatory strtaegies--impacting on self care, transfers/mobility,. Pt will continue skilled Occupational therapy to address functional impaiments to maxmize function in self care, transfers & mobility uisng assistive device pr n, + caregiver ED, DME needs assessment. Pt needs intermittent rest breaks during therapy sessions. Pt needs min assist overall for self care, transfers and mobility with assistive devices & compensatory strategies prn. Pt will likely need 24 hour care 2' cognitive & physical limitations: pt's daughter is made aware. Pt may benefit from w/c from long distance; pt fatigues easily during mobility/activities in general. *18x16" standard/high strength light weight w/c with B removable desk arms, antitippers, seatbelt, B legrests, thin basic cushion. Pt will benefit from toileting program to minimize incontinence episodes. -Goals: *Supervision for adls, transfers & mobility with assitive devices. *Caregiver to be I cueing/assisting pt with adls, transfers/mobility/Iadls - Goals Timeframe: 8 days Comment: *FEEDING: I/setup. *GROOMING: I/setup. *UPPER BODY DRESSING: I/setup setup. *LOWER BODY DRESSING: Close S/CG and verbal cues for strategies. *BATHING: Min assist and verbal cues overall seated. *TOILETING: CS/Supervision and verbal cues with ambulatory device prn. *CAREGIVER ED: Caregiver to be I assisting/cueing pt with self care tasks, transfers/mobility using safety strategies. *W/C MANAGEMENT: Pt to propel w/c ~75 feet, manage B Brakes with CS and - Provider Occupational Therapist:: Zara Quijano License Number: [id number] Speech Therapy - Consult Information Patient on Program: Yes Medical Diagnosis: new onset Parkinson disease Treatment Diagnosis: -mild voice disorder/dysarthria. -moderate cognitive deficits - Assessment Memory Impairment: Moderate Speech/Articulation Impairment: Mild - Plan Assessment: Ab Burciaga presents with 1.) mild voice disorder/dysarthria characterized by impaired breath support for phonation with low vocal volume and mildly impaired articulatory precision negatively impacting intelligibility at the sentence level; and 2.) moderate cognitive linguistic deficits characterized by impaired orientation, immediate and short-term recall, and thought organization negatively impacting communicative effectiveness and functional independence. Pt's daughter at bedside reports that pt's memory has been declining for about one year and that he has recently presented with voice changes in which his voice is "softer" and he "talks like he has marbles in his mouth". Pt with good participation in tx tasks and would benefit from continued speech tx 3-5x/week for improved vocal loudness and speech intelligibility, as well as education on compensatory memory strategies. Plan: Continue Speech/Language Therapy Frequency: 3-5 times per week Duration: 1 week Goals/Timeframe: Please see progress note dated 08/02/18 for updated goals/POC Recommendations: Continue ST 3-5x/week - Provider Therapist: Esther Nichole License Number: [id number] Recreational Therapy - Participation Participation: Participates in Individual and/or Group Sessions - Attendance Attendance: 3-5 times per week - Activities Leisure Activities: Cards and Games - Socialization Level of Socialization: Initiates/interacts freely with care givers and peer - Assessment Assessment/Plan: Pt is agreeable to participate in 1:1 and group recreation therapy sessions following encouragement. Pt was oriented to modified andriy card task and required mod verbal cues for carryover and recall of task rules. Pt participated in bingo task and was supervision with task. Pt's barriers to participation is fatigue and decrease arousal. Pt requires rest breaks and requires recall of carryover of task rules. Pt will continue to benefit from participating in recreation therapy sessions throughout stay on unit. Problems Currently Limiting Participation: decrease leisure awareness level, forgetfulness, weakness, decrease activity tolerance level Goals and Time Frame: Pt will be encouraged to participate in 1:1 and group recreation therapy sessions to improve attention to task, direction following, activity tolerance level, command following, and arousal level by date of discharge. - Provider Therapist: Shona Lees Nutrition - Current Diet Current Diet/Supplement/Feedings: Regular diet - Appetite Percent Meal Consumed: 75-100% - Assessment/Goals/Time Frame Assessments/Goals/Time Frame: Pt at moderate nutritional risk. goal:1. Pt to consume 75-100% of meals. Follow-up due on 08/05/2018 - Provider Provider: Michelle Carr Case Management - Psychosocial Assessment Support Systems: Nallely Dumont (daughter): Psychological Interventions/Needs: Patient is awake and alert with periods of forgetfulness. Patient has signed an advanced directive and assigned his daughter as his healthcare proxy. Discharge Concerns: Patient has periods of confusion as reported by daughter and it is not safe for him to be left alone. Patient/Family Meeting: CM met with patient and rehab team. Intervention/Goal/Outcome: 1. Goal: Supervision 2. Plan: Discharge home with services 3. Caregiver training with daughter 4. DME needs 5. Follow up appointments 6. Continued emotional support - Discharge Plan Discharge Plan: Home with services Home Services: [facility] - Provider Provider: Leeanna Randle License Number: [id number] Rehabilitation Plan - Treatment Plan Treatment Plan: Physical Therapy, Occupational Therapy, Speech, Dietary, Patient/Family Education - Discharge Plan Estimated Date of Discharge: 08/10/18 Discharge to: Home
--- NOTE | 2018-08-03 13:57 | CP.PCM.PN ---
Subjective - Date & Time of Evaluation Date of Evaluation: 08/03/18 Time of Evaluation: 13:56 - Subjective Subjective: Patient seen in the room doing ok family present and they are getting trained for planned d/c next week continue current care needs 24 hour supervision Objective - Vital Signs/Intake and Output Vital Signs (last 24 hours): Temp Pulse Resp BP Pulse Ox 97.5 F L 70 20 132/71 20 L 08/03/18 09:00 08/03/18 09:00 08/03/18 09:00 08/03/18 09:00 08/03/18 08:15 - Medications Medications: Current Medications Aspirin (Ecotrin) 81 mg PO DAILY [facility] Last Admin: 08/03/18 08:44 Dose: 81 mg Carbidopa/Levodopa (Sinemet) 1 tab PO BID@0700,1200 [facility] Last Admin: 08/03/18 12:48 Dose: 1 tab Docusate Sodium (Colace) 100 mg PO BID [facility] Last Admin: 08/03/18 08:44 Dose: 100 mg Donepezil HCl (Aricept) 5 mg PO HS [facility] Last Admin: 08/02/18 21:17 Dose: 5 mg Ergocalciferol (Drisdol 50,000 Intl Units Cap) 1 cap PO SUN [facility] Last Admin: 08/01/18 08:48 Dose: 1 cap Losartan Potassium (Cozaar) 100 mg PO DAILY [facility] Last Admin: 08/03/18 08:44 Dose: 100 mg Memantine (Namenda) 5 mg PO BID [facility] Last Admin: 08/03/18 08:44 Dose: 5 mg Metoprolol Succinate (Toprol Xl) 50 mg PO DAILY [facility] Last Admin: 08/03/18 08:46 Dose: 50 mg Oxybutynin Chloride (Ditropan Tab) 5 mg PO BID [facility] Last Admin: 08/03/18 08:44 Dose: 5 mg Tamsulosin HCl (Flomax) 0.4 mg PO HS [facility] Last Admin: 08/02/18 21:17 Dose: 0.4 mg - Labs Labs: 08/02/18 05:35 08/02/18 05:35 PT 11.8 Seconds (9.8-13.1) 08/02/18 05:35 INR 1.0 08/02/18 05:35
[2018-08-04 07:03] LABS: HEMOGLOBIN 8.9 g/dL (12.0-18.0); MEAN CELL VOLUME 107.8 fl (80.0-94.0); MEAN CORPUSCULAR HEMOGLOBIN 37.9 pg (27.0-31.0); MEAN CORPUSCULAR HGB CONC 35.2 g/dL (33.0-37.0); RBC 2.36 Mil/uL (4.40-5.90); RED CELL DISTRIBUTION WIDTH 16.2 % (11.5-14.5); WHITE BLOOD COUNT 9.8 K/uL (4.8-10.8)
[2018-08-04] MEDS: Metoprolol Succinate 50 mg XL Tab PO SCH (10:51)
--- NOTE | 2018-08-04 13:40 | CP.PCM.PN ---
Subjective - Date & Time of Evaluation Date of Evaluation: 08/04/18 Time of Evaluation: 13:38 - Subjective Subjective: I have evaluated Ab Burciaga while in PT(Date of : 1935) on 08/03/18 for his mobility limitation due to recent diagnosis Parkinsons Disease that significantly impairs ability to participate in one or more mobility-r elated activities of daily living (MRADL's) including toileting, dressing, grooming, and bathing in customary locations in the home. The beneficiary's mobility limitation cannot be sufficiently resolved by the use of an appropriately fitted cane or walker due to patients shuffling gait patterns and impaired negotiation of walker. Mr. Burciaga home provides adequate access between rooms, maneuvering space, and surfaces for use of the light weight standard height wheelchair provided. The beneficiary has sufficient upper body strength to self propel in a lightweight wheelchair but does not have the upper body strength to self propel a standard wheelchair due impaired endurance and fatigue. Use of a lightweight wheelchair will significantly improve the beneficiarys ability to participate in MRADLs and she will use it on a regular basis in the home. Mr. Ab Burciaga has expressed a willingness and ability to use the lightweight wheelchair that is provided in the home. Patient requires anti-tippers to prevent wheelchair from tipping forward or backward, seat belt for safety, bilateral elevating leg rests to prevent lower extremity swelling and standard thin cushion for the seat to prevent skin breakdown which patient is high risk for due to limited mobility from recent diagnosis of Parkinsons Disease. Denies sob/cp or headache no acute visual changes continue current care Objective - Vital Signs/Intake and Output Vital Signs (last 24 hours): Temp Pulse Resp BP Pulse Ox 98.1 F 68 18 91/55 L 98 08/04/18 08:43 08/04/18 10:51 08/04/18 08:43 08/04/18 10:51 08/04/18 08:43 - Medications Medications: Current Medications Aspirin (Ecotrin) 81 mg PO DAILY [facility] Last Admin: 08/04/18 08:29 Dose: 81 mg Carbidopa/Levodopa (Sinemet) 1 tab PO BID@0700,1200 [facility] Last Admin: 08/04/18 12:17 Dose: 1 tab Donepezil HCl (Aricept) 5 mg PO HS [facility] Last Admin: 08/03/18 21:32 Dose: 5 mg Ergocalciferol (Drisdol 50,000 Intl Units Cap) 1 cap PO SUN [facility] Last Admin: 08/01/18 08:48 Dose: 1 cap Ferrous Sulfate (Feosol) 325 mg PO BID [facility] Last Admin: 08/04/18 08:29 Dose: 325 mg Losartan Potassium (Cozaar) 25 mg PO DAILY [facility] Memantine (Namenda) 5 mg PO BID [facility] Last Admin: 08/04/18 08:29 Dose: 5 mg Metoprolol Succinate (Toprol Xl) 50 mg PO DAILY [facility] Last Admin: 08/04/18 10:51 Dose: Not Given Oxybutynin Chloride (Ditropan Tab) 5 mg PO TID [facility] Last Admin: 08/04/18 12:20 Dose: 5 mg Senna/Docusate Sodium (Senokot S 50 Mg-8.6 Mg) 2 tab PO [facility] Tamsulosin HCl (Flomax) 0.4 mg PO [facility] Last Admin: 08/03/18 21:32 Dose: 0.4 mg - Labs Labs: 08/04/18 05:25 08/02/18 05:35 PT 11.8 Seconds (9.8-13.1) 08/02/18 05:35 INR 1.0 08/02/18 05:35
[2018-08-04] MEDS: Docusate-Senna 50 mg-8.6 mg Tab PO SCH (21:13)
[2018-08-05 06:53] LABS: HEMOGLOBIN 8.8 g/dL (12.0-18.0); MEAN CELL VOLUME 110.3 fl (80.0-94.0); MEAN CORPUSCULAR HEMOGLOBIN 38.4 pg (27.0-31.0); MEAN CORPUSCULAR HGB CONC 34.8 g/dL (33.0-37.0); RBC 2.3 Mil/uL (4.40-5.90); RED CELL DISTRIBUTION WIDTH 16.5 % (11.5-14.5); WHITE BLOOD COUNT 10.7 K/uL (4.8-10.8)
--- NOTE | 2018-08-05 18:08 | CP.PCM.PN ---
Subjective - Date & Time of Evaluation Date of Evaluation: 08/05/18 Time of Evaluation: 18:07 - Subjective Subjective: Patient seen in the room doing well denies sob/cp continues to improve in therapies set for d/c next week continue current care Objective - Vital Signs/Intake and Output Vital Signs (last 24 hours): Temp Pulse Resp BP Pulse Ox 97.9 F 78 20 136/67 99 08/05/18 08:15 08/05/18 08:59 08/05/18 08:15 08/05/18 08:59 08/05/18 08:15 - Medications Medications: Current Medications Aspirin (Ecotrin) 81 mg PO DAILY [facility] Last Admin: 08/05/18 08:58 Dose: 81 mg Carbidopa/Levodopa (Sinemet) 1 tab PO BID@0700,1200 [facility] Last Admin: 08/05/18 12:27 Dose: 1 tab Donepezil HCl (Aricept) 5 mg PO HS [facility] Last Admin: 08/04/18 21:14 Dose: 5 mg Ergocalciferol (Drisdol 50,000 Intl Units Cap) 1 cap PO SUN [facility] Last Admin: 08/01/18 08:48 Dose: 1 cap Ferrous Sulfate (Feosol) 325 mg PO BID [facility] Last Admin: 08/05/18 16:59 Dose: 325 mg Losartan Potassium (Cozaar) 25 mg PO DAILY [facility] Memantine (Namenda) 5 mg PO BID [facility] Last Admin: 08/05/18 16:59 Dose: 5 mg Metoprolol Succinate (Toprol Xl) 50 mg PO DAILY [facility] Last Admin: 08/04/18 10:51 Dose: Not Given Oxybutynin Chloride (Ditropan Tab) 5 mg PO TID [facility] Last Admin: 08/05/18 16:59 Dose: 5 mg Senna/Docusate Sodium (Senokot S 50 Mg-8.6 Mg) 2 tab PO HS [facility] Last Admin: 08/04/18 21:13 Dose: 2 tab Tamsulosin HCl (Flomax) 0.4 mg PO HS [facility] Last Admin: 08/04/18 21:14 Dose: 0.4 mg - Labs Labs: 08/05/18 05:35 08/02/18 05:35 PT 11.8 Seconds (9.8-13.1) 08/02/18 05:35 INR 1.0 08/02/18 05:35
[2018-08-05] MEDS: Docusate-Senna 50 mg-8.6 mg Tab PO SCH (21:02)
[2018-08-06 06:45] LABS: BASO % 0.5 % (0.0-2.0); EOS # 0.2 K/uL (0.0-0.7); HEMOGLOBIN 8.5 g/dL (12.0-18.0); LYMPH # 1.4 K/uL (1.0-4.3); LYMPH % 15.3 % (20.0-40.0); MEAN CELL VOLUME 109.1 fl (80.0-94.0); MEAN CORPUSCULAR HEMOGLOBIN 38.1 pg (27.0-31.0); MEAN CORPUSCULAR HGB CONC 34.9 g/dL (33.0-37.0); MEAN PLATELET VOLUME 7.6 fl (7.2-11.7); MONO # 0.8 K/uL (0.0-0.8); MONO % 8.7 % (0.0-10.0); NEUT # 6.9 K/uL (1.8-7.0); NEUT % 73.5 % (50.0-75.0); RBC 2.24 Mil/uL (4.40-5.90); RED CELL DISTRIBUTION WIDTH 15.7 % (11.5-14.5); WHITE BLOOD COUNT 9.4 K/uL (4.8-10.8)
[2018-08-06] MEDS: Docusate-Senna 50 mg-8.6 mg Tab PO SCH (21:06)
[2018-08-06 21:30] LABS: URINE BACTERIA OCC (<OCC); URINE BILIRUBIN NEGATIVE (NEGATIVE); URINE BLOOD LARGE (NEGATIVE); URINE CLARITY TURBID (Clear); URINE COLOR YELLOW (YELLOW); URINE GLUCOSE (UA) NEG (NEGATIVE); URINE LEUKOCYTE ESTERASE LARGE Leu/uL (Negative); URINE PROTEIN 100 mg/dL (NEGATIVE); URINE UROBILINOGEN 0.2-1.0 mg/dL (0.2-1.0); WBC CLUMPS FEW /hpf
--- NOTE | 2018-08-07 16:50 | CP.PCM.PN ---
Subjective - Date & Time of Evaluation Date of Evaluation: 08/07/18 Time of Evaluation: 16:49 - Subjective Subjective: Patient seen in the room and in good spirits denies sob/cp no dizziness or N/V making progress in therapies continue current care Objective - Vital Signs/Intake and Output Vital Signs (last 24 hours): Temp Pulse Resp BP Pulse Ox 97.9 F 76 19 142/68 97 08/07/18 08:48 08/07/18 08:48 08/07/18 08:48 08/07/18 08:48 08/07/18 08:48 - Medications Medications: Current Medications Aspirin (Ecotrin) 81 mg PO DAILY [facility] Last Admin: 08/07/18 08:24 Dose: 81 mg Carbidopa/Levodopa (Sinemet) 1 tab PO BID@0700,1200 [facility] Last Admin: 08/07/18 13:26 Dose: 1 tab Donepezil HCl (Aricept) 5 mg PO HS [facility] Last Admin: 08/06/18 21:06 Dose: 5 mg Ergocalciferol (Drisdol 50,000 Intl Units Cap) 1 cap PO SUN [facility] Last Admin: 08/01/18 08:48 Dose: 1 cap Ferrous Sulfate (Feosol) 325 mg PO BID [facility] Last Admin: 08/07/18 08:24 Dose: 325 mg Losartan Potassium (Cozaar) 25 mg PO DAILY [facility] Last Admin: 08/07/18 08:25 Dose: 25 mg Memantine (Namenda) 5 mg PO BID [facility] Last Admin: 08/07/18 08:25 Dose: 5 mg Metoprolol Succinate (Toprol Xl) 50 mg PO DAILY [facility] Last Admin: 08/04/18 10:51 Dose: Not Given Oxybutynin Chloride (Ditropan Tab) 5 mg PO TID [facility] Last Admin: 08/07/18 13:26 Dose: 5 mg Senna/Docusate Sodium (Senokot S 50 Mg-8.6 Mg) 2 tab PO HS [facility] Last Admin: 08/06/18 21:06 Dose: 2 tab Tamsulosin HCl (Flomax) 0.4 mg PO HS [facility] Last Admin: 08/06/18 21:06 Dose: 0.4 mg - Labs Labs: 08/06/18 05:45 08/02/18 05:35 PT 11.8 Seconds (9.8-13.1) 08/02/18 05:35 INR 1.0 08/02/18 05:35
[2018-08-07 19:00] LABS: MEAN CELL VOLUME 109.1 fl (80.0-94.0); MEAN CORPUSCULAR HEMOGLOBIN 36.6 pg (27.0-31.0); MEAN CORPUSCULAR HGB CONC 33.5 g/dL (33.0-37.0); RBC 2.47 Mil/uL (4.40-5.90); RED CELL DISTRIBUTION WIDTH 15.9 % (11.5-14.5); WHITE BLOOD COUNT 8.2 K/uL (4.8-10.8)
[2018-08-07] MEDS: Docusate-Senna 50 mg-8.6 mg Tab PO SCH (21:02)
[2018-08-08 00:31] VITALS: RESP 20
[2018-08-08] MEDS: Ergocalciferol 50,000 Intl Units Cap PO SCH (08:14)
[2018-08-08] MEDS: Docusate-Senna 50 mg-8.6 mg Tab PO SCH (21:43)
--- NOTE | 2018-08-09 18:57 | CP.PCM.PN ---
Subjective - Date & Time of Evaluation Date of Evaluation: 08/09/18 Time of Evaluation: 18:56 - Subjective Subjective: Pt seen in the room No CP/SOB comfortable, NAD no cyanosis or jaundice continues with therapies and remains motivated Objective - Vital Signs/Intake and Output Vital Signs (last 24 hours): Temp Pulse Resp BP Pulse Ox 97.2 F L 69 20 155/81 H 99 08/09/18 08:00 08/09/18 08:37 08/09/18 08:00 08/09/18 08:37 08/09/18 08:00 - Medications Medications: Current Medications Aspirin (Ecotrin) 81 mg PO DAILY [facility] Last Admin: 08/09/18 08:37 Dose: 81 mg Carbidopa/Levodopa (Sinemet) 1 tab PO BID@0700,1200 [facility] Last Admin: 08/09/18 12:54 Dose: 1 tab Donepezil HCl (Aricept) 5 mg PO HS [facility] Last Admin: 08/08/18 21:43 Dose: 5 mg Ergocalciferol (Drisdol 50,000 Intl Units Cap) 1 cap PO SUN [facility] Last Admin: 08/08/18 08:14 Dose: 1 cap Ferrous Sulfate (Feosol) 325 mg PO BID [facility] Last Admin: 08/09/18 16:54 Dose: 325 mg Losartan Potassium (Cozaar) 25 mg PO DAILY [facility] Last Admin: 08/09/18 08:37 Dose: 25 mg Memantine (Namenda) 5 mg PO BID [facility] Last Admin: 08/09/18 16:54 Dose: 5 mg Metoprolol Succinate (Toprol Xl) 50 mg PO DAILY [facility] Last Admin: 08/04/18 10:51 Dose: Not Given Oxybutynin Chloride (Ditropan Tab) 5 mg PO TID [facility] Last Admin: 08/09/18 16:54 Dose: 5 mg Senna/Docusate Sodium (Senokot S 50 Mg-8.6 Mg) 2 tab PO HS [facility] Last Admin: 08/08/18 21:43 Dose: 2 tab Tamsulosin HCl (Flomax) 0.4 mg PO HS [facility] Last Admin: 08/08/18 21:45 Dose: 0.4 mg - Labs Labs: 08/07/18 17:52 08/02/18 05:35 PT 11.8 Seconds (9.8-13.1) 08/02/18 05:35 INR 1.0 08/02/18 05:35
[2018-08-09] MEDS: Docusate-Senna 50 mg-8.6 mg Tab PO SCH (22:05)
[2018-08-10 07:47] VITALS: TEMP 97.3; O2SAT 98
[2018-08-10 08:15] VITALS: BP 133/78; PULSE 78
--- NOTE | 2018-08-10 12:12 | CP.PCM.DIS ---
Provider - Provider Date of Admission: 07/28/18 15:12 Attending physician: Joe Teran MD Consults: 07/28/18 15:37 Physiatry Consult Routine Comment: Consulting Provider: Isra Gaines Consulting Physician: Isra Gaines Reason for Consult: ACUTE REHAB CONSULT: NEW ONSET PARKINSON'S DISEASE 07/28/18 15:47 Case Management Referral Routine Comment: Physician Instructions: Reason For Exam: Reason for Referral: Discharge Planning 07/28/18 16:25 Pastoral Care Referral Routine Comment: Physician Instructions: Reason For Exam: PT'S REQUEST Time Spent in preparation of Discharge (in minutes): 20 Diagnosis - Discharge Diagnosis (1) Abnormality of gait and mobility Status: Chronic (2) Parkinsons disease Status: Chronic Hospital Course - Lab Results Lab Results: Micro Results 08/07/18 08:20 Urine,Clean Catch Urine Culture - Final Methicillin Resistant S Aureus Most Recent Lab Values WBC 8.2 K/uL (4.8-10.8) 08/07/18 17:52 RBC 2.47 Mil/uL (4.40-5.90) L 08/07/18 17:52 Hgb 9.0 g/dL (12.0-18.0) L 08/07/18 17:52 Hct 26.9 % (35.0-51.0) L 08/07/18 17:52 MCV 109.1 fl (80.0-94.0) H 08/07/18 17:52 MCH 36.6 pg (27.0-31.0) H 08/07/18 17:52 MCHC 33.5 g/dL (33.0-37.0) 08/07/18 17:52 RDW 15.9 % (11.5-14.5) H 08/07/18 17:52 Plt Count 244 K/uL (130-400) 08/07/18 17:52 MPV 7.6 fl (7.2-11.7) 08/06/18 05:45 Neut % (Auto) 73.5 % (50.0-75.0) 08/06/18 05:45 Lymph % (Auto) 15.3 % (20.0-40.0) L 08/06/18 05:45 Kinney % (Auto) 8.7 % (0.0-10.0) 08/06/18 05:45 Eos % (Auto) 2.0 % (0.0-4.0) 08/06/18 05:45 Baso % (Auto) 0.5 % (0.0-2.0) 08/06/18 05:45 Neut # (Auto) 6.9 K/uL (1.8-7.0) 08/06/18 05:45 Lymph # (Auto) 1.4 K/uL (1.0-4.3) 08/06/18 05:45 Kinney # (Auto) 0.8 K/uL (0.0-0.8) 08/06/18 05:45 Eos # (Auto) 0.2 K/uL (0.0-0.7) 08/06/18 05:45 Baso # (Auto) 0.0 K/uL (0.0-0.2) 08/06/18 05:45 PT 11.8 Seconds (9.8-13.1) 08/02/18 05:35 INR 1.0 08/02/18 05:35 Sodium 139 mmol/l (132-148) 08/02/18 05:35 Potassium 4.7 MMOL/L (3.6-5.0) 08/02/18 05:35 Chloride 109 mmol/L (98-107) H 08/02/18 05:35 Carbon Dioxide 26 mmol/L (22-30) 08/02/18 05:35 Anion Gap 9 (10-20) L 08/02/18 05:35 BUN 29 mg/dl (9-20) H 08/02/18 05:35 Creatinine 1.2 mg/dl (0.8-1.5) 08/02/18 05:35 Est GFR ( Amer) > 60 08/02/18 05:35 Est GFR (Non-Af Amer) 58 08/02/18 05:35 POC Glucose (mg/dL) 106 mg/dL (65-110) 08/08/18 16:56 Random Glucose 96 mg/dL (75-110) 08/02/18 05:35 Calcium 8.4 mg/dL (8.4-10.2) 08/02/18 05:35 Total Bilirubin 1.3 mg/dl (0.2-1.3) 08/02/18 05:35 AST 21 U/L (17-59) 08/02/18 05:35 ALT 29 U/L (21-72) 08/02/18 05:35 Alkaline Phosphatase 71 U/L (38-126) 08/02/18 05:35 Total Protein 6.8 G/DL (6.3-8.2) 08/02/18 05:35 Albumin 3.3 g/dL (3.5-5.0) L D 08/02/18 05:35 Globulin 3.5 gm/dL (2.2-3.9) 08/02/18 05:35 Albumin/Globulin Ratio 0.9 (1.0-2.1) L 08/02/18 05:35 Urine Color Yellow (YELLOW) 08/06/18 21:20 Urine Clarity Turbid (Clear) 08/06/18 21:20 Urine pH 6.0 (5.0-8.0) 08/06/18 21:20 Ur Specific [place] 1.015 (1.003-1.030) 08/06/18 21:20 Urine Protein 100 mg/dL (NEGATIVE) 08/06/18 21:20 Urine Glucose (UA) Neg mg/dL (NEGATIVE) 08/06/18 21:20 Urine Ketones Negative mg/dL (NEGATIVE) 08/06/18 21:20 Urine Blood Large (NEGATIVE) 08/06/18 21:20 Urine Nitrate Positive (NEGATIVE) H 08/06/18 21:20 Urine Bilirubin Negative (NEGATIVE) 08/06/18 21:20 Urine Urobilinogen 0.2-1.0 mg/dL (0.2-1.0) 08/06/18 21:20 Ur Leukocyte Esterase Large Donovan/uL (Negative) 08/06/18 21:20 Urine RBC (Auto) 98 /hpf (0-3) H 08/06/18 21:20 Urine WBC Clumps (Auto) Few /hpf (NONE) H 08/06/18 21:20 Urine Microscopic WBC 889 /hpf (0-5) H 08/06/18 21:20 Urine Bacteria Occ (<OCC) H 08/06/18 21:20 Blood Type A POSITIVE 08/07/18 17:52 Antibody Screen Negative 08/07/18 17:52 BBK History Checked Patient has bt 08/07/18 17:52 - Hospital Course Hospital Course: 83 yo male with newly diagnosed Parkinson's disease (started on memantine), who was admitted to rehab when he was found to have poor gait mobility on PT eval during admission for gross hematuria and s/p TURP. Home medications were restarted, and pt participated in therapies as per rehab plan. Seen today, no acute distress, no chest pain or shortness of breath, no ab dominal pain, swelling, discomfort. Stable for discharge as per rehab and admitting MD. Results of urine culture came back, MRSA +; will be discharged with PO bactrim DS x 7 days. Discharge Exam - Head Exam Head Exam: NORMOCEPHALIC - ENT Exam ENT Exam: Mucous Membranes Moist - Respiratory Exam Respiratory Exam: Clear to PA & Lateral, NORMAL BREATHING PATTERN. absent: Wheezes, Respiratory Distress - Cardiovascular Exam Cardiovascular Exam: REGULAR RHYTHM, +S1, +S2 - GI/Abdominal Exam GI & Abdominal Exam: Soft. absent: Tenderness - Extremities Exam Additional comments: no calf swelling or tenderness - Neurological Exam Neurological exam: Alert - Skin Skin Exam: Dry, Warm Discharge Plan - Discharge Medications Prescriptions: Carbidopa/Levodopa [Carbidopa-Levodopa 25-100 Tab] 1 tab PO TID 90 Days #90 tablet Donepezil HCl [Aricept] 5 mg PO HS #90 tablet Ergocalciferol (Vitamin D2) [Vitamin D2] 50,000 unit PO SUN #12 capsule Escitalopram [Lexapro] 10 mg PO DAILY #90 tab Memantine [Namenda] 5 mg PO BID #180 tab Metoprolol Succinate XL [Toprol XL] 25 mg PO DAILY #90 tab Sulfamethoxazole/Trimethoprim [Bactrim DS 800 mg-160 mg] 1 tab PO BID #14 tab Tamsulosin [Flomax] 0.4 mg PO QPM #90 cap - Follow Up Plan Condition: GOOD Disposition: HOME/ ROUTINE Instructions: Preventing Falls in the Older Adult, Parkinson Disease (DC), Oxybutynin Referrals: Conner Modi MD [Family Provider] - (follow up with PMD 1 week.)
--- NOTE | 2018-08-10 17:16 | CP.PCM.PN ---
Subjective - Date & Time of Evaluation Date of Evaluation: 08/10/18 Time of Evaluation: 13:15 - Subjective Subjective: patient seen in the room daughter was present has not yet been signed out ready for d/c denies sob/cp has done quite well nursing staff will go over details of the discharge Objective - Vital Signs/Intake and Output Vital Signs (last 24 hours): Temp Pulse Resp BP Pulse Ox 97.3 F L 78 20 133/78 98 08/10/18 07:43 08/10/18 08:14 08/10/18 07:43 08/10/18 08:14 08/10/18 07:43 - Labs Labs: 08/07/18 17:52 08/02/18 05:35 PT 11.8 Seconds (9.8-13.1) 08/02/18 05:35 INR 1.0 08/02/18 05:35
== END 2018-08-10 15:45 | disposition home health service (06) | DRG 57 ==
PROVIDERS: ADMIT Family Medicine; ATTEND Family Medicine
PROC: F07Z9FZ Gait Training/Functional Ambulation Treatment using Assistive, Adaptive, Supportive or Protective Equipment (ICD-10-PCS; principal; 2018-07-28)
PROC: F08Z4FZ Home Management Treatment using Assistive, Adaptive, Supportive or Protective Equipment (ICD-10-PCS; 2018-07-29)
PROC: F07M6FZ Therapeutic Exercise Treatment of Musculoskeletal System - Whole Body using Assistive, Adaptive, Supportive or Protective Equipment (ICD-10-PCS; 2018-07-29)
DX: G20 Parkinson's disease (principal); R26.9 Unspecified abnormalities of gait and mobility; I10 Essential (primary) hypertension; R31.0 Gross hematuria; Z98.42 Cataract extraction status, left eye; Z98.41 Cataract extraction status, right eye; M19.90 Unspecified osteoarthritis, unspecified site; R32 Unspecified urinary incontinence; F03.90 Unspecified dementia, unspecified severity, without behavioral disturbance, psychotic disturbance, mood disturbance, and anxiety

== ENCOUNTER 2018-12-15 13:44 | Inpatient (IN) | payer MEDICARE, OTHER ==
[2018-12-15 13:44] VITALS: BMI 25.8
--- NOTE | 2018-12-15 14:37 | ED PDOC ---
HPI: Male Pain Time Seen by Provider: 12/15/18 14:00 Chief Complaint (Nursing): Male Genitourinary Chief Complaint (Provider): Male Genitourinary History Per: Patient, Family History/Exam Limitations: no limitations Onset/Duration Of Symptoms: Days Associated Symptoms: Urinary Symptoms. denies: Fever Additional Complaint(s): 83 year old male with a past medical history of dementia who was brought to the ED for evaluation after noticing small amount of blood on diaper anteriorly. Family states that patient has also been incontinent of urine ongoing since yesterday. Patient denies any dysuria, fevers, or abdominal pain. He offers no other medical complaints at this time. PMD: Conner Modi Past Medical History Reviewed: Historical Data, Nursing Documentation, Vital Signs Vital Signs: Last Vital Signs Temp 98.4 F 12/15/18 13:48 Pulse 73 12/15/18 13:48 Resp 16 12/15/18 13:48 BP 115/68 12/15/18 13:48 Pulse Ox 98 12/15/18 13:48 - Medical History PMH: Arthritis, Dementia, HTN, Parkinson's Disease Denies: Diabetes, HIV, Chronic Kidney Disease - Surgical History Surgical History: Denies: Appendectomy (denies) Other surgeries: cataracts - Family History Family History: States: Unknown Family Hx - Social History Current smoker - smoking cessation education provided: No Alcohol: None Drugs: Denies - Home Medications Home Medications: Ambulatory Orders Medication Instructions Recorded Aspirin [Ecotrin] 81 mg PO DAILY 07/06/18 Donepezil HCl [Aricept] 5 mg PO HS #90 tablet 08/10/18 Ergocalciferol (Vitamin D2) 50,000 unit PO SUN #12 capsule 08/10/18 [Vitamin D2] Escitalopram [Lexapro] 10 mg PO DAILY #90 tab 08/10/18 Tamsulosin [Flomax] 0.4 mg PO QPM #90 cap 08/10/18 Carbidopa/Levodopa 1 tab PO Q8 12/15/18 [Carbidopa-Levodopa 25-100 Tab] Lactulose [Generlac] 30 ml PO Q12 PRN 12/15/18 Linaclotide [Linzess] 145 mcg PO DAILY 12/15/18 Losartan [Cozaar] 100 mg PO DAILY 12/15/18 Memantine [Namenda] 5 mg PO Q12 12/15/18 Risperidone [Risperdal] 0.25 mg PO Q12 12/15/18 amLODIPine [Norvasc] 5 mg PO DAILY 12/15/18 - Allergies Allergies/Adverse Reactions: Allergies Allergy/AdvReac Type Severity Reaction Status Date / Time No Known Allergies Allergy Verified 07/28/18 15:34 Review of Systems ROS Statement: Except As Marked, All Systems Reviewed And Found Negative Constitutional: Negative for: Fever Gastrointestinal: Negative for: Abdominal Pain Genitourinary Male: Positive for: Incontinence, Hematuria. Negative for: Dysuria Physical Exam - Reviewed Nursing Documentation Reviewed: Yes Vital Signs Reviewed: Yes - Physical Exam Appears: Positive for: Non-toxic, No Acute Distress Head Exam: Positive for: ATRAUMATIC, NORMAL INSPECTION, NORMOCEPHALIC Skin: Positive for: Normal Color, Warm, DRY Eye Exam: Positive for: EOMI, Normal appearance, PERRL ENT: Positive for: Normal ENT Inspection Neck: Positive for: Normal, Painless ROM Cardiovascular/Chest: Positive for: Regular Rate, Rhythm. Negative for: Murmur Respiratory: Positive for: Normal Breath Sounds. Negative for: Respiratory Distress Gastrointestinal/Abdominal: Positive for: Normal Exam, Soft. Negative for: Tenderness, Distended, Guarding, Rebound Male Genital Exam: Positive for: normal genitalia, other (no blood at meatus ) Back: Positive for: Normal Inspection. Negative for: L CVA Tenderness, R CVA Tenderness, Vertebral Tenderness Extremity: Positive for: Normal ROM. Negative for: Deformity, Swelling Neurological/Psych: Positive for: Awake, Alert, Normal Tone, Oriented. Negative for: Motor/Sensory Deficits - Laboratory Results Result Diagrams: 12/15/18 14:24 12/15/18 14:24 - ECG O2 Sat by Pulse Oximetry: 98 (RA) Pulse Ox Interpretation: Normal Medical Decision Making Medical Decision Making: Time: 14:30 Plan: --Will obtain CT Abd/Pelvis w/out contrast --Urinalysis --CMP --CBC --Urine Culture Discussed with SUMMER Mckay, covering for Dr. Modi. Made aware of CT and lab findings. Sepsis criteria not met. Will start on IV Rocephin and admit for further tx and management ------ Scribe Attestation: Documented by Saige Brown, acting as a scribe for Duane Hyde MD. Provider Scribe Attestation: All medical record entries made by the Scribe were at my direction and personally dictated by me. I have reviewed the chart and agree that the record accurately reflects my personal performance of the history, physical exam, medical decision making, and the department course for this patient. I have also personally directed, reviewed, and agree with the discharge instructions and disposition. Disposition - Clinical Impression Clinical Impression: Urinary tract infection, Hematuria, Colitis - Patient ED Disposition Is Patient to be Admitted: Yes - Disposition Disposition Time: 18:04 Condition: FAIR Forms: [employer] (Hungarian) - Pt Status Changed To: Hospital Disposition Of: Inpatient - Admit Certification Admit to Inpatient:: After my assessment, the patient will require hospitalization for at least two midnights. This is because of the severity of symptoms shown, intensity of services needed, and/or the medical risk in this patient being treated as an outpatient. - POA Present On Arrival: None
[2018-12-15 15:07] LABS: ALBUMIN 3.3 g/dL (3.5-5.0); ALT/SGPT 13 U/L (21-72); AST/SGOT 20 U/L (17-59); BLOOD UREA NITROGEN 28 mg/dl (9-20); CALCIUM 8.6 mg/dL (8.4-10.2); GFR NON-AFRICAN AMERICAN > 60
--- NOTE | 2018-12-15 15:38 | CT ---
Date of service: 12/15/2018 PROCEDURE: CT Abdomen and Pelvis without intravenous contrast HISTORY: r/o kidney stone COMPARISON: 07/06/2008. CT abdomen and pelvis. TECHNIQUE: Unenhanced. Neither IV nor oral contrast administered Radiation dose: Total exam DLP = 28327 mGy-cm. This CT exam was performed using one or more of the following dose reduction techniques: Automated exposure control, adjustment of the mA and/or kV according to patient size, and/or use of iterative reconstruction technique. FINDINGS: LOWER THORAX: Trace pleural effusions/dependent atelectasis. LIVER: Unremarkable. No gross lesion or ductal dilatation. GALLBLADDER AND BILE DUCTS: Unremarkable. PANCREAS: Unremarkable. No gross lesion or ductal dilatation. SPLEEN: Unremarkable. ADRENALS: Unremarkable. No mass. KIDNEYS AND URETERS: Unremarkable. No hydronephrosis. No solid mass. Stable bilateral renal cysts left larger and more numerous than right. The largest cyst projects off the middle and inferior aspect of the left kidney measures 8.4 x 12.3 cm. VASCULATURE: Atherosclerotic calcification and mural plaque present. Findings are seen throughout the aorta. No aortic aneurysm. BOWEL: Acute inflammatory changes limited to the sigmoid and proximal rectum. More distally the rectum is spared. No anal-rectal abnormalities. APPENDIX: Prior appendectomy. PERITONEUM: Unremarkable. No free fluid. No free air. LYMPH NODES: Unremarkable. No enlarged lymph nodes. BLADDER: Unremarkable. REPRODUCTIVE: Unremarkable. BONES: No acute fracture. OTHER FINDINGS: None. IMPRESSION: Colitis: Inflammatory changes limited to the sigmoid colon. This represents a new/acute finding compared to the prior CT scan performed 07/06/2018.
[2018-12-15 16:02] LABS: BASO % 0.5 % (0.0-2.0); EOS # 0.1 K/uL (0.0-0.7); EOS % 1.3 % (0.0-4.0); HEMOGLOBIN 10.2 g/dL (12.0-18.0); LYMPH % 10.7 % (20.0-40.0); MEAN CELL VOLUME 110.6 fl (80.0-94.0); MEAN CORPUSCULAR HEMOGLOBIN 38.2 pg (27.0-31.0); MEAN CORPUSCULAR HGB CONC 34.5 g/dL (33.0-37.0); MEAN PLATELET VOLUME 8.3 fl (7.2-11.7); MONO # 0.7 K/uL (0.0-0.8); MONO % 6.7 % (0.0-10.0); NEUT # 7.9 K/uL (1.8-7.0); NEUT % 80.8 % (50.0-75.0); RBC 2.68 Mil/uL (4.40-5.90); RED CELL DISTRIBUTION WIDTH 14.8 % (11.5-14.5); WHITE BLOOD COUNT 9.8 K/uL (4.8-10.8)
[2018-12-15 16:57] LABS: SQUAMOUS EPITHIAL 20 /hpf (0-5); URINE BACTERIA MOD (<OCC); URINE BILIRUBIN NEGATIVE (NEGATIVE); URINE BLOOD NEGATIVE (NEGATIVE); URINE CLARITY CLOUDY (Clear); URINE COLOR AMBER (YELLOW); URINE GLUCOSE (UA) NEG (NEGATIVE); URINE LEUKOCYTE ESTERASE LARGE Leu/uL (Negative); URINE PROTEIN 30 mg/dL (NEGATIVE); URINE UROBILINOGEN 0.2-1.0 mg/dL (0.2-1.0)
[2018-12-15] MEDS ORDERED: cefTRIAXone (Rocephin) 1 gm Inj ONE (18:20)
[2018-12-15] MEDS ORDERED: Sodium Chloride 0.9% 1,000 ML IV SCH (20:45)
[2018-12-16 07:03] LABS: EOS # 0.1 K/uL (0.0-0.7)
[2018-12-16 07:16] LABS: ALBUMIN 3.1 g/dL (3.5-5.0); ALT/SGPT 10 U/L (21-72); AST/SGOT 23 U/L (17-59); BLOOD UREA NITROGEN 24 mg/dl (9-20); CALCIUM 8.6 mg/dL (8.4-10.2); GFR NON-AFRICAN AMERICAN > 60
[2018-12-16 07:26] LABS: IRON 44 ug/dL (49-181)
[2018-12-16 07:36] LABS: % IRON SATURATION 24 % (20-55); TOTAL IRON BINDING CAPACITY 181 ug/dL (250-450)
[2018-12-16 07:43] LABS: BASO # 0.1 K/uL (0.0-0.2); BASO % 0.7 % (0.0-2.0); EOS % 1.6 % (0.0-4.0); LYMPH # 1.5 K/uL (1.0-4.3); LYMPH % 19.7 % (20.0-40.0); MEAN PLATELET VOLUME 8.3 fl (7.2-11.7); MONO # 0.5 K/uL (0.0-0.8); MONO % 6.9 % (0.0-10.0); NEUT # 5.5 K/uL (1.8-7.0); NEUT % 71.1 % (50.0-75.0); NRBC % 0.1 % (0.0-0.0); RBC 2.49 Mil/uL (4.40-5.90); WHITE BLOOD COUNT 7.7 K/uL (4.8-10.8)
[2018-12-16 07:46] LABS: HEMOGLOBIN 9.7 g/dL (12.0-18.0); MEAN CELL VOLUME 111.9 fl (80.0-94.0)
[2018-12-16 07:47] LABS: MEAN CORPUSCULAR HGB CONC 34.9 g/dL (33.0-37.0); RED CELL DISTRIBUTION WIDTH 14.8 % (11.5-14.5)
--- NOTE | 2018-12-16 09:46 | RAD ---
Date of service: 12/15/2018 HISTORY: cough COMPARISON: 07/20/2018 TECHNIQUE: 1 view obtained. FINDINGS: LUNGS: No active pulmonary disease. PLEURA: No significant pleural effusion identified, no pneumothorax apparent. CARDIOVASCULAR: There is atherosclerotic calcification of the thoracic aorta. Normal cardiac size. No pulmonary vascular congestion. OSSEOUS STRUCTURES: No significant abnormalities. VISUALIZED UPPER ABDOMEN: Normal. OTHER FINDINGS: None. IMPRESSION: No active disease.
[2018-12-16] MEDS ORDERED: metroNIDAZOLE 500mg/100ml NS 100 ML IVPB SCH (11:45)
[2018-12-16 12:05] LABS: FOLATE 9.7 ng/mL
[2018-12-16] MEDS: metroNIDAZOLE 500mg/100ml NS 100 ML IVPB SCH (22:03)
[2018-12-17] MEDS: metroNIDAZOLE 500mg/100ml NS 100 ML IVPB SCH ×3 (06:05→23:12)
--- NOTE | 2018-12-17 09:20 | CP.PCM.CON ---
History of Present Illness - History of Present Illness History of Present Illness: urology consult dictated. I,mp UTI hematuria. Plan to follow up for possible cystoscopy Past Patient History - Past Medical History & Family History Past Medical History?: Yes - Past Social History Smoking Status: Never Smoked - CARDIAC Hx Cardiac Disorders: Yes Hx Hypertension: Yes - PULMONARY Hx Respiratory Disorders: No - NEUROLOGICAL Hx Neurological Disorder: Yes Hx Dementia: Yes Hx Parkinson's Disease: Yes - HEENT Hx HEENT Problems: Yes Hx Cataracts: Yes (HX ANTIONE CATARACT SX) - RENAL Hx Chronic Kidney Disease: No - ENDOCRINE/METABOLIC Hx Endocrine Disorders: No - HEMATOLOGICAL/ONCOLOGICAL Hx Blood Disorders: No Hx Human Immunodeficiency Virus (HIV): No - INTEGUMENTARY Hx Dermatological Problems: No - MUSCULOSKELETAL/RHEUMATOLOGICAL Hx Musculoskeletal Disorders: Yes Hx Arthritis: Yes Hx Falls: No - GASTROINTESTINAL Hx Gastrointestinal Disorders: No - GENITOURINARY/GYNECOLOGICAL Hx Genitourinary Disorders: Yes Hx Hematuria: Yes (S/P CYSTOSCOPY AND EVACUATION OF CLOTS109/22/2017) Hx Incontinence: Yes Hx Prostate Problems: Yes (S/P TURP) - PSYCHIATRIC Hx Psychophysiologic Disorder: No Hx Substance Use: No - SURGICAL HISTORY Hx Appendectomy: No (denies) Other/Comment: TURP - ANESTHESIA Hx Anesthesia: Yes Hx Anesthesia Reactions: No Hx Malignant Hyperthermia: No Meds Allergies/Adverse Reactions: Allergies Allergy/AdvReac Type Severity Reaction Status Date / Time No Known Allergies Allergy Verified 07/28/18 15:34 - Medications Medications: Current Medications Amlodipine Besylate (Norvasc) 5 mg PO DAILY [facility] Last Admin: 12/17/18 08:34 Dose: 5 mg Carbidopa/Levodopa (Sinemet) 1 tab PO Q8 [facility] Last Admin: 12/17/18 08:34 Dose: 1 tab Docusate Sodium (Colace) 100 mg PO BID [facility] Last Admin: 12/17/18 08:42 Dose: 100 mg Donepezil HCl (Aricept) 5 mg PO HS [facility] Last Admin: 12/16/18 22:03 Dose: 5 mg Ergocalciferol (Drisdol 50,000 Intl Units Cap) 1 cap PO SUN [facility] Escitalopram Oxalate (Lexapro) 10 mg PO DAILY [facility] Last Admin: 12/17/18 08:33 Dose: 10 mg Ferrous Sulfate (Feosol) 325 mg PO BID [facility] Last Admin: 12/17/18 08:43 Dose: 325 mg Home Med (Linaclotide [Linzess]) 145 mcg PO DAILY [facility] Last Admin: 12/17/18 08:33 Dose: 145 mcg Ceftriaxone Sodium 1 gm/ (Sodium Chloride) 100 mls @ 100 mls/hr IVPB DAILY [facility]; Protocol Last Admin: 12/17/18 08:29 Dose: 100 mls/hr Metronidazole (Flagyl 500mg/100ml Ns) 100 mls @ 100 mls/hr IVPB Q8@0700,1500,2300 [facility]; Protocol Last Admin: 12/17/18 06:05 Dose: 100 mls/hr Losartan Potassium (Cozaar) 100 mg PO DAILY [facility] Last Admin: 12/17/18 08:33 Dose: 100 mg Memantine (Namenda) 5 mg PO Q12 [facility] Last Admin: 12/17/18 08:33 Dose: 5 mg Pantoprazole Sodium (Protonix Ec Tab) 40 mg PO DAILY [facility] Risperidone (Risperdal Tab) 0.25 mg PO Q12 [facility] Last Admin: 12/17/18 08:34 Dose: 0.25 mg Tamsulosin HCl (Flomax) 0.4 mg PO QPM [facility] Last Admin: 12/16/18 17:13 Dose: 0.4 mg Results - Vital Signs Recent Vital Signs: Last Vital Signs Temp 97.9 F 12/17/18 07:55 Pulse 75 12/17/18 08:34 Resp 20 12/17/18 07:55 BP 117/61 12/17/18 08:34 Pulse Ox 99 12/17/18 07:55 - Labs Result Diagrams: 12/16/18 06:30 12/16/18 06:30 Labs: Laboratory Results - last 24 hr 12/16/18 06:30 Folate 9.7
[2018-12-17] MEDS: Pantoprazole 40 mg EC Tab PO SCH (09:29)
[2018-12-17 09:37] LABS: BLOOD UREA NITROGEN 25 mg/dl (9-20); CALCIUM 8.4 mg/dL (8.4-10.2); GFR NON-AFRICAN AMERICAN > 60
[2018-12-17 09:48] LABS: HEMOGLOBIN 9.6 g/dL (12.0-18.0); MEAN CELL VOLUME 110.6 fl (80.0-94.0); MEAN CORPUSCULAR HEMOGLOBIN 39.2 pg (27.0-31.0); MEAN CORPUSCULAR HGB CONC 35.5 g/dL (33.0-37.0); RBC 2.44 Mil/uL (4.40-5.90); RED CELL DISTRIBUTION WIDTH 14.5 % (11.5-14.5); WHITE BLOOD COUNT 6.1 K/uL (4.8-10.8)
[2018-12-17] MEDS: Potassium Chloride 20 mEq ER Tab PO SCH (10:24)
--- NOTE | 2018-12-17 11:15 | CP.PCM.PCO ---
Physician Communication Note - Physician Communication Note Physician Communication Note: Pt requires IV abx for another 5-7 days, will benefit from TCU admission
--- NOTE | 2018-12-17 15:22 | CON ---
DATE: 12/16/2018 HISTORY OF PRESENT ILLNESS: This is an 83-year-old male patient who came in through the ER yesterday for evaluation. He is coming from a care home. In the evaluation, it appeared that he might have had some hematuria. The diaper that he was in had shown some staining of red in the area of the urethra. So, the patient was admitted, on initial evaluation, white blood cell count was normal. He did have chemistry which showed BUN at 28 and creatinine of 1. The patient had a urine culture drawn. Initial report is indicating a gram-positive significant urinary tract infection. The patient clinically is not a reliable historian. I am not sure if he fully understands the questioning, but he appears to deny any abdominal pain. He does not have any difficulty urinating, we are not sure the status of the bleeding at this time, although, there is no nursing reports of any gross hematuria. At this time, he is currently on ceftriaxone 1 g daily. I think when the sensitivity comes back to this urine culture, the antibiotics would be adjusted accordingly, and if there is any reported evidence of gross hematuria after this treatment, then I would consider doing a cystoscopy for evaluation of the source of the bleeding. Caroline Shearer MD
[2018-12-18 00:06] VITALS: RESP 20
[2018-12-18] MEDS: metroNIDAZOLE 500mg/100ml NS 100 ML IVPB SCH (05:59)
[2018-12-18 07:44] VITALS: BP 137/70; PULSE 63; TEMP 97.5; O2SAT 99
[2018-12-18] MEDS: Pantoprazole 40 mg EC Tab PO SCH (08:21)
[2018-12-18] MEDS: Potassium Chloride 20 mEq ER Tab PO SCH (08:21)
[2018-12-19] MEDS ORDERED: Ergocalciferol 50,000 Intl Units Cap PO SCH (09:00)
--- NOTE | 2018-12-20 09:26 | CP.PCM.HP ---
History of Present Illness - History of Present Illness History of Present Illness: This is an 83 y/o male admitted for hematuria noted as blood in his diaper. He has ah hx of dementia and recently diagnosed to have Parkinson's disease. Has no hx of DM 2 HN or had never had any UTI in the past. Has no recent underwood cath use. There was no fever . Patient did not complain of any dysuria or pain on urination. Initial labs showed nitrates in urine and heavy WBC and RBC. Present on Admission - Present on Admission Any Indicators Present on Admission: No History of DVT/PE: No History of Uncontrolled Diabetes: No Urinary Catheter: No Decubitus Ulcer Present: No Review of Systems - Neurological Neurological: Memory Loss Past Patient History - Past Medical History & Family History Past Medical History?: Yes - Past Social History Smoking Status: Never Smoked - CARDIAC Hx Cardiac Disorders: Yes Hx Hypertension: Yes - PULMONARY Hx Respiratory Disorders: No - NEUROLOGICAL Hx Neurological Disorder: Yes Hx Dementia: Yes Hx Parkinson's Disease: Yes - HEENT Hx HEENT Problems: Yes Hx Cataracts: Yes (HX ANTIONE CATARACT SX) - RENAL Hx Chronic Kidney Disease: No - ENDOCRINE/METABOLIC Hx Endocrine Disorders: No - HEMATOLOGICAL/ONCOLOGICAL Hx Blood Disorders: No Hx Human Immunodeficiency Virus (HIV): No - INTEGUMENTARY Hx Dermatological Problems: No - MUSCULOSKELETAL/RHEUMATOLOGICAL Hx Musculoskeletal Disorders: Yes Hx Arthritis: Yes Hx Falls: No - GASTROINTESTINAL Hx Gastrointestinal Disorders: No - GENITOURINARY/GYNECOLOGICAL Hx Genitourinary Disorders: Yes Hx Hematuria: Yes (S/P CYSTOSCOPY AND EVACUATION OF CLOTS109/22/2017) Hx Incontinence: Yes Hx Prostate Problems: Yes (S/P TURP) - PSYCHIATRIC Hx Psychophysiologic Disorder: No Hx Substance Use: No - SURGICAL HISTORY Hx Appendectomy: No (denies) Other/Comment: TURP - ANESTHESIA Hx Anesthesia: Yes Hx Anesthesia Reactions: No Hx Malignant Hyperthermia: No Meds Allergies/Adverse Reactions: Allergies Allergy/AdvReac Type Severity Reaction Status Date / Time No Known Allergies Allergy Verified 12/18/18 14:15 Physical Exam - Eye Exam Eye Exam: Normal appearance - Respiratory Exam Respiratory Exam: Clear to Auscultation Bilateral - Cardiovascular Exam Cardiovascular Exam: REGULAR RHYTHM - GI/Abdominal Exam GI & Abdominal Exam: Normal Bowel Sounds - Neurological Exam Neurological exam: Altered - Psychiatric Exam Psychiatric exam: Normal Mood Results - Vital Signs Recent Vital Signs: Last Vital Signs Temp 97.5 F L 12/18/18 07:42 Pulse 63 12/18/18 08:25 Resp 20 12/18/18 07:42 BP 137/70 12/18/18 08:25 Pulse Ox 99 12/18/18 07:42 - Labs Result Diagrams: 12/17/18 08:55 12/17/18 08:55 Assessment & Plan (1) Urinary tract infection Status: Acute (2) Dementia Status: Chronic (3) Parkinsons disease Status: Chronic (4) Hematuria Status: Resolved - Assessment and Plan (Free Text) Plan: start IV antibiotic s urine C and S urology eval. hydarte Cont all meds.
--- NOTE | 2018-12-20 09:31 | CP.PCM.DIS ---
Provider - Provider Date of Admission: 12/15/18 17:59 Attending physician: Conner Modi MD Consults: 12/15/18 22:31 Urology Consult Routine Comment: Consulting Provider: Caroline Shearer Consulting Physician: Caroline Shearer Reason for Consult: eval of painless hematuria, UTI, pt had recent cytoscopy Time Spent in preparation of Discharge (in minutes): 15 Diagnosis - Discharge Diagnosis (1) Urinary tract infection Status: Acute (2) Dementia Status: Chronic (3) Parkinsons disease Status: Chronic (4) Hematuria Status: Resolved Hospital Course - Lab Results Lab Results: Micro Results 12/15/18 18:20 Blood-Venous Blood Culture - Preliminary NO GROWTH AFTER 4 DAYS 12/15/18 15:40 Urine,Clean Catch Urine Culture - Final Methicillin Resistant S Aureus Most Recent Lab Values WBC 6.1 K/uL (4.8-10.8) 12/17/18 08:55 RBC 2.44 Mil/uL (4.40-5.90) L 12/17/18 08:55 Hgb 9.6 g/dL (12.0-18.0) L 12/17/18 08:55 Hct 27.0 % (35.0-51.0) L 12/17/18 08:55 MCV 110.6 fl (80.0-94.0) H 12/17/18 08:55 MCH 39.2 pg (27.0-31.0) H 12/17/18 08:55 MCHC 35.5 g/dL (33.0-37.0) 12/17/18 08:55 RDW 14.5 % (11.5-14.5) 12/17/18 08:55 Plt Count 211 K/uL (130-400) 12/17/18 08:55 MPV 8.3 fl (7.2-11.7) 12/16/18 06:30 Neut % (Auto) 71.1 % (50.0-75.0) 12/16/18 06:30 Lymph % (Auto) 19.7 % (20.0-40.0) L 12/16/18 06:30 [place] % (Auto) 6.9 % (0.0-10.0) 12/16/18 06:30 Eos % (Auto) 1.6 % (0.0-4.0) 12/16/18 06:30 Baso % (Auto) 0.7 % (0.0-2.0) 12/16/18 06:30 Neut # (Auto) 5.5 K/uL (1.8-7.0) 12/16/18 06:30 Lymph # (Auto) 1.5 K/uL (1.0-4.3) 12/16/18 06:30 [place] # (Auto) 0.5 K/uL (0.0-0.8) 12/16/18 06:30 Eos # (Auto) 0.1 K/uL (0.0-0.7) 12/16/18 06:30 Baso # (Auto) 0.1 K/uL (0.0-0.2) 12/16/18 06:30 Neutrophils % (Manual) Cancelled 12/15/18 14:24 Band Neutrophils % Cancelled 12/15/18 14:24 Lymphocytes % (Manual) Cancelled 12/15/18 14:24 Reactive Lymphs % Cancelled 12/15/18 14:24 Monocytes % (Manual) Cancelled 12/15/18 14:24 Eosinophils % (Manual) Cancelled 12/15/18 14:24 Basophils % (Manual) Cancelled 12/15/18 14:24 Metamyelocytes % Cancelled 12/15/18 14:24 Myelocytes % Cancelled 12/15/18 14:24 Promyelocytes % Cancelled 12/15/18 14:24 Blast Cells % Cancelled 12/15/18 14:24 Plasma Cell % (Manual) Cancelled 12/15/18 14:24 Nucleated RBC % Cancelled 12/15/18 14:24 Hypersegmented Polys Cancelled 12/15/18 14:24 Smudge Cells Cancelled 12/15/18 14:24 Toxic Granulation Cancelled 12/15/18 14:24 Dohle Bodies Cancelled 12/15/18 14:24 Ny Rods Cancelled 12/15/18 14:24 Platelet Estimate Cancelled 12/15/18 14:24 Plt Clumps, EDTA Cancelled 12/15/18 14:24 Large Platelets Cancelled 12/15/18 14:24 Giant Platelets Cancelled 12/15/18 14:24 RBC Morphology Cancelled 12/15/18 14:24 Polychromasia Cancelled 12/15/18 14:24 Hypochromasia (manual) Cancelled 12/15/18 14:24 Poikilocytosis (manual Cancelled 12/15/18 14:24 Basophilic Stippling Cancelled 12/15/18 14:24 Anisocytosis (manual) Cancelled 12/15/18 14:24 Microcytosis (manual) Cancelled 12/15/18 14:24 Macrocytosis (manual) Cancelled 12/15/18 14:24 Spherocytes Cancelled 12/15/18 14:24 Sickle Cells Cancelled 12/15/18 14:24 Target Cells Cancelled 12/15/18 14:24 Tear Drop Cells Cancelled 12/15/18 14:24 Ovalocytes Cancelled 12/15/18 14:24 Stomatocytes Cancelled 12/15/18 14:24 Helmet Cells Cancelled 12/15/18 14:24 [place] Bodies Cancelled 12/15/18 14:24 [place] Cells Cancelled 12/15/18 14:24 Acanthocytes (Spur) Cancelled 12/15/18 14:24 [place]aux Cancelled 12/15/18 14:24 Schistocytes Cancelled 12/15/18 14:24 Sodium 139 mmol/l (132-148) 12/17/18 08:55 Potassium 3.2 MMOL/L (3.6-5.0) L 12/17/18 08:55 Chloride 107 mmol/L (98-107) 12/17/18 08:55 Carbon Dioxide 21 mmol/L (22-30) L 12/17/18 08:55 Anion Gap 14 (10-20) 12/17/18 08:55 BUN 25 mg/dl (9-20) H 12/17/18 08:55 Creatinine 1.1 mg/dl (0.8-1.5) 12/17/18 08:55 Est GFR ( Amer) > 60 12/17/18 08:55 Est GFR (Non-Af Amer) > 60 12/17/18 08:55 Random Glucose 135 mg/dL (75-110) H 12/17/18 08:55 Calcium 8.4 mg/dL (8.4-10.2) 12/17/18 08:55 Iron 44 ug/dL (49-181) L 12/16/18 06:30 TIBC 181 ug/dL (250-450) L 12/16/18 06:30 % Saturation 24 % (20-55) 12/16/18 06:30 Ferritin 599.0 ng/Ml (17.9-464) H 12/16/18 06:30 Total Bilirubin 1.0 mg/dl (0.2-1.3) 12/16/18 06:30 AST 23 U/L (17-59) 12/16/18 06:30 ALT 10 U/L (21-72) L D 12/16/18 06:30 Alkaline Phosphatase 55 U/L (38-126) 12/16/18 06:30 Total Protein 6.2 G/DL (6.3-8.2) L 12/16/18 06:30 Albumin 3.1 g/dL (3.5-5.0) L 12/16/18 06:30 Globulin 3.1 gm/dL (2.2-3.9) 12/16/18 06:30 Albumin/Globulin Ratio 1.0 (1.0-2.1) 12/16/18 06:30 Vitamin B12 364 pg/mL (239-931) 12/16/18 06:30 Folate 9.7 ng/mL 12/16/18 06:30 Urine Color [place] (YELLOW) 12/15/18 15:40 Urine Clarity Cloudy (Clear) 12/15/18 15:40 Urine pH 6.0 (5.0-8.0) 12/15/18 15:40 Ur Specific [place] 1.020 (1.003-1.030) 12/15/18 15:40 Urine Protein 30 mg/dL (NEGATIVE) 12/15/18 15:40 Urine Glucose (UA) Neg mg/dL (NEGATIVE) 12/15/18 15:40 Urine Ketones Trace mg/dL (NEGATIVE) 12/15/18 15:40 Urine Blood Negative (NEGATIVE) 12/15/18 15:40 Urine Nitrate Positive (NEGATIVE) H 12/15/18 15:40 Urine Bilirubin Negative (NEGATIVE) 12/15/18 15:40 Urine Urobilinogen 0.2-1.0 mg/dL (0.2-1.0) 12/15/18 15:40 Ur Leukocyte Esterase Large [place]/uL (Negative) 12/15/18 15:40 Urine RBC (Auto) 7 /hpf (0-3) H 12/15/18 15:40 Urine Microscopic WBC 605 /hpf (0-5) H 12/15/18 15:40 Ur Squamous Epith Cells 20 /hpf (0-5) H 12/15/18 15:40 Urine Bacteria Mod (<OCC) H 12/15/18 15:40 - Hospital Course Hospital Course: Mindy is an 83 y/o male with dementia and parkinsons was admitted for hematuria and noted to have UTI. He was started on iv antibiotics and urology consult was called. Noted to have MRSA. He was started on antibitoics and arranged for further iV antibiotics at the TCU floor. he was discharged in stable condition. Discharge Exam - Head Exam Head Exam: ATRAUMATIC, NORMAL INSPECTION, NORMOCEPHALIC - Respiratory Exam Respiratory Exam: NORMAL BREATHING PATTERN - Cardiovascular Exam Cardiovascular Exam: REGULAR RHYTHM - GI/Abdominal Exam GI & Abdominal Exam: Normal Bowel Sounds - Neurological Exam Neurological exam: CN II-XII Intact - Psychiatric Exam Psychiatric exam: Normal Mood Discharge Plan - Follow Up Plan Condition: FAIR Disposition: REHAB FACILITY/REHAB UNIT Instructions: Urinary Tract Infection in Women (DC), Urinary Tract Infection in Men (DC), Dysuria (GEN)
== END 2018-12-18 14:06 | DRG 690 ==
LOC: H.ER 13:44 → H.ERHOLD 17:59 → H.MEDSURG1 20:17
PROVIDERS: ADMIT Family Medicine; ATTEND Family Medicine
DX: N39.0 Urinary tract infection, site not specified (principal); K52.9 Noninfective gastroenteritis and colitis, unspecified; R31.9 Hematuria, unspecified; R32 Unspecified urinary incontinence; G20 Parkinson's disease; F03.90 Unspecified dementia, unspecified severity, without behavioral disturbance, psychotic disturbance, mood disturbance, and anxiety; I10 Essential (primary) hypertension; Z79.82 Long term (current) use of aspirin; Z90.79 Acquired absence of other genital organ(s); Z98.42 Cataract extraction status, left eye; Z98.41 Cataract extraction status, right eye; M19.90 Unspecified osteoarthritis, unspecified site; Z79.899 Other long term (current) drug therapy; B95.62 Methicillin resistant Staphylococcus aureus infection as the cause of diseases classified elsewhere

== ENCOUNTER 2018-12-18 13:23 | Inpatient (IN) | payer OTHER ==
[2018-12-18 14:15] VITALS: BMI 24.7
[2018-12-18 15:06] VITALS: RESP 20
[2018-12-18] MEDS ORDERED: metroNIDAZOLE 500mg/100ml NS IVPB SCH (17:00)
[2018-12-18] MEDS: metroNIDAZOLE 500mg/100ml NS 100 ML IVPB SCH (17:22)
[2018-12-19] MEDS: metroNIDAZOLE 500mg/100ml NS 100 ML IVPB SCH ×3 (01:54→17:24)
[2018-12-19] MEDS: Ergocalciferol 50,000 Intl Units Cap PO SCH (08:39)
[2018-12-19] MEDS: LINACLOTIDE 145 MCG PO SCH (08:40)
[2018-12-19] MEDS: Pantoprazole 40 mg EC Tab PO SCH (08:41)
[2018-12-19] MEDS ORDERED: Potassium Chloride 20 mEq ER Tab PO SCH (09:00)
[2018-12-20] MEDS: metroNIDAZOLE 500mg/100ml NS 100 ML IVPB SCH ×3 (01:46→17:16)
[2018-12-20 07:01] LABS: BLOOD UREA NITROGEN 9 mg/dl (9-20); GFR NON-AFRICAN AMERICAN > 60
[2018-12-20] MEDS: Pantoprazole 40 mg EC Tab PO SCH (08:58)
[2018-12-20] MEDS: Potassium Chloride 20 mEq ER Tab PO SCH ×2 (08:59→16:21)
[2018-12-20] MEDS: LINACLOTIDE 145 MCG PO SCH (08:59)
--- NOTE | 2018-12-20 09:34 | CP.PCM.HP ---
History of Present Illness - History of Present Illness History of Present Illness: This is an 83 y/o male admitted for further iv antibiotics at TCU after diagnosis of UTI with MRSA. He presented with hematuria and was admitted to medical floor. He tolerated Iv antibiotics. urology was called and suggested no procedure till UTI is treated. He has a hx of dementia and recently diagnosed to have Parkinson's. Present on Admission - Present on Admission Any Indicators Present on Admission: No History of DVT/PE: No History of Uncontrolled Diabetes: No Urinary Catheter: No Decubitus Ulcer Present: No Past Patient History - Past Medical History & Family History Past Medical History?: Yes - Past Social History Smoking Status: Never Smoked - CARDIAC Hx Cardiac Disorders: Yes Hx Hypertension: Yes - PULMONARY Hx Respiratory Disorders: No - NEUROLOGICAL Hx Neurological Disorder: Yes Hx Dementia: Yes Hx Parkinson's Disease: Yes - HEENT Hx HEENT Problems: Yes Hx Cataracts: Yes (HX ANTIONE CATARACT SX) - RENAL Hx Chronic Kidney Disease: No - ENDOCRINE/METABOLIC Hx Endocrine Disorders: No - HEMATOLOGICAL/ONCOLOGICAL Hx Blood Disorders: No Hx AIDS: No Hx Human Immunodeficiency Virus (HIV): No - INTEGUMENTARY Hx Dermatological Problems: No - MUSCULOSKELETAL/RHEUMATOLOGICAL Hx Musculoskeletal Disorders: Yes Hx Arthritis: Yes Hx Falls: No - GASTROINTESTINAL Hx Gastrointestinal Disorders: No - GENITOURINARY/GYNECOLOGICAL Hx Genitourinary Disorders: Yes Hx Hematuria: Yes (S/P CYSTOSCOPY AND EVACUATION OF CLOTS109/22/2017) Hx Incontinence: Yes Hx Prostate Problems: Yes (S/P TURP) - PSYCHIATRIC Hx Psychophysiologic Disorder: No Hx Hallucinations: No Hx Substance Use: No - SURGICAL HISTORY Hx Surgeries: Yes Hx Appendectomy: (denies) Other/Comment: TURP - ANESTHESIA Hx Anesthesia: Yes Hx Anesthesia Reactions: No Hx Malignant Hyperthermia: No Meds Allergies/Adverse Reactions: Allergies Allergy/AdvReac Type Severity Reaction Status Date / Time No Known Allergies Allergy Verified 12/18/18 14:15 Physical Exam - Head Exam Head Exam: NORMAL INSPECTION - Eye Exam Eye Exam: Normal appearance - Respiratory Exam Respiratory Exam: Clear to Auscultation Bilateral - Cardiovascular Exam Cardiovascular Exam: REGULAR RHYTHM - GI/Abdominal Exam GI & Abdominal Exam: Normal Bowel Sounds Results - Vital Signs Recent Vital Signs: Last Vital Signs Temp 98.0 F 12/20/18 08:07 Pulse 70 12/20/18 09:00 Resp 20 12/20/18 08:07 BP 154/59 H 12/20/18 09:00 Pulse Ox 100 12/20/18 08:07 - Labs Result Diagrams: 12/20/18 05:15 Labs: Laboratory Results - last 24 hr 12/20/18 05:15 Sodium 139 Potassium 2.7 L Chloride 119 H Carbon Dioxide 17 L Anion Gap 6 L BUN 9 Creatinine 0.5 L Est GFR ( Amer) > 60 Est GFR (Non-Af Amer) > 60 Random Glucose 55 L Calcium 5.0 L* D Assessment & Plan (1) Urinary tract infection Status: Acute (2) Dementia Status: Chronic (3) Parkinsons disease Status: Chronic (4) MRSA (methicillin resistant Staphylococcus aureus) infection Status: Acute - Assessment and Plan (Free Text) Plan: Cont med s cont iv antibiotics Id consult cont all meds
--- NOTE | 2018-12-20 09:38 | CP.PCM.PN ---
Subjective - Date & Time of Evaluation Date of Evaluation: 12/19/18 Time of Evaluation: 11:45 - Subjective Subjective: Cont to do well Has no fever. On iv antibiotics On Vancomycin Objective - Vital Signs/Intake and Output Vital Signs (last 24 hours): Temp Pulse Resp BP Pulse Ox 98.0 F 70 20 154/59 H 100 12/20/18 08:07 12/20/18 09:00 12/20/18 08:07 12/20/18 09:00 12/20/18 08:07 - Medications Medications: Current Medications Amlodipine Besylate (Norvasc) 5 mg PO DAILY [facility] Last Admin: 12/20/18 08:59 Dose: 5 mg Carbidopa/Levodopa (Sinemet) 1 tab PO Q8 [facility] Last Admin: 12/20/18 08:57 Dose: 1 tab Docusate Sodium (Colace) 100 mg PO BID [facility] Last Admin: 12/20/18 08:57 Dose: 100 mg Donepezil HCl (Aricept) 5 mg PO HS [facility] Last Admin: 12/19/18 21:33 Dose: 5 mg Ergocalciferol (Drisdol 50,000 Intl Units Cap) 1 cap PO SUN [facility] Last Admin: 12/19/18 08:39 Dose: 1 cap Escitalopram Oxalate (Lexapro) 10 mg PO DAILY [facility] Last Admin: 12/20/18 09:00 Dose: 10 mg Ferrous Sulfate (Feosol) 325 mg PO BID [facility] Last Admin: 12/20/18 09:09 Dose: 325 mg Heparin Sodium (Porcine) (Heparin) 5,000 units SC Q12 [facility]; Protocol Last Admin: 12/20/18 09:00 Dose: 5,000 units Home Med (Linaclotide [Linzess]) 145 mcg PO DAILY [facility] Last Admin: 12/20/18 08:59 Dose: 145 mcg Metronidazole (Flagyl 500mg/100ml Ns) 100 mls @ 100 mls/hr IVPB Q8 [facility] Last Admin: 12/20/18 08:57 Dose: 100 mls/hr Vancomycin HCl 1 gm/ Sodium (Chloride) 250 mls @ 166.667 mls/hr IVPB Q12@0500,1700 [facility] Last Admin: 12/20/18 05:24 Dose: 166.667 mls/hr Losartan Potassium (Cozaar) 100 mg PO DAILY [facility] Last Admin: 12/20/18 09:00 Dose: 100 mg Memantine (Namenda) 5 mg PO Q12 [facility] Last Admin: 12/20/18 08:57 Dose: 5 mg Pantoprazole Sodium (Protonix Ec Tab) 40 mg PO DAILY [facility] Last Admin: 12/20/18 08:58 Dose: 40 mg Potassium Chloride (K-Dur 20 Meq Er Tab) 40 meq PO BID [facility] Last Admin: 12/20/18 08:59 Dose: 40 meq Risperidone (Risperdal Tab) 0.25 mg PO Q12 [facility] Last Admin: 12/20/18 08:58 Dose: 0.25 mg Tamsulosin HCl (Flomax) 0.4 mg PO QPM [facility] Last Admin: 12/19/18 17:24 Dose: 0.4 mg - Labs Labs: 12/20/18 05:15 - Head Exam Head Exam: NORMAL INSPECTION - Eye Exam Eye Exam: Normal appearance - Respiratory Exam Respiratory Exam: Clear to Ausculation Bilateral - Cardiovascular Exam Cardiovascular Exam: REGULAR RHYTHM - GI/Abdominal Exam GI & Abdominal Exam: Normal Bowel Sounds Assessment and Plan (1) Urinary tract infection Status: Acute (2) Dementia Status: Chronic (3) Parkinsons disease Status: Chronic (4) MRSA (methicillin resistant Staphylococcus aureus) infection Status: Acute - Assessment and Plan (Free Text) Plan: Cont meds Cont tx Cont iv antibiotics
[2018-12-20 11:15] LABS: ALT/SGPT 20 U/L (21-72); AST/SGOT 43 U/L (17-59); BLOOD UREA NITROGEN 13 mg/dl (9-20); CALCIUM 8.2 mg/dL (8.4-10.2); GFR NON-AFRICAN AMERICAN > 60
--- NOTE | 2018-12-20 18:58 | CP.PCM.PN ---
Subjective - Date & Time of Evaluation Date of Evaluation: 12/20/18 Time of Evaluation: 10:00 - Subjective Subjective: patient seen and examined at bedside. Interim events noted No complaints offered at this time denies cp/sob/fever/chills. available diagnostic data reviewed Review of Systems All systems: reviewed and no additional remarkable complaints except mentioned above Objective Vital Signs Stable - Constitutional Appears: Non-toxic, No Acute Distress Head Exam: NORMAL INSPECTION Eye Exam: Normal appearance Respiratory Exam: NORMAL BREATHING PATTERN Cardiovascular Exam: +S1, +S2 GI & Abdominal Exam: Soft Neurological Exam: Alert, Awake Psychiatric exam: Normal Affect, Normal Mood Skin Exam: Normal Color, Warm Assessment and Plan monitor vitals monitor labs Cont meds Cont tx consultants appreciated input repeat labs for accuracy rest of plan as ordered Objective - Vital Signs/Intake and Output Vital Signs (last 24 hours): Temp Pulse Resp BP Pulse Ox 98.1 F 77 20 100/54 L 98 12/20/18 16:08 12/20/18 16:08 12/20/18 16:08 12/20/18 16:08 12/20/18 16:08 - Medications Medications: Current Medications Amlodipine Besylate (Norvasc) 5 mg PO DAILY [facility] Last Admin: 12/20/18 08:59 Dose: 5 mg Carbidopa/Levodopa (Sinemet) 1 tab PO Q8 [facility] Last Admin: 12/20/18 16:26 Dose: 1 tab Docusate Sodium (Colace) 100 mg PO BID [facility] Last Admin: 12/20/18 16:20 Dose: 100 mg Donepezil HCl (Aricept) 5 mg PO HS [facility] Last Admin: 12/19/18 21:33 Dose: 5 mg Ergocalciferol (Drisdol 50,000 Intl Units Cap) 1 cap PO SUN [facility] Last Admin: 12/19/18 08:39 Dose: 1 cap Escitalopram Oxalate (Lexapro) 10 mg PO DAILY [facility] Last Admin: 12/20/18 09:00 Dose: 10 mg Ferrous Sulfate (Feosol) 325 mg PO BID [facility] Last Admin: 12/20/18 16:20 Dose: 325 mg Heparin Sodium (Porcine) (Heparin) 5,000 units SC Q12 [facility]; Protocol Last Admin: 12/20/18 09:00 Dose: 5,000 units Home Med (Linaclotide [Linzess]) 145 mcg PO DAILY [facility] Last Admin: 12/20/18 08:59 Dose: 145 mcg Metronidazole (Flagyl 500mg/100ml Ns) 100 mls @ 100 mls/hr IVPB Q8 [facility] Last Admin: 12/20/18 17:16 Dose: 100 mls/hr Vancomycin HCl 1 gm/ Sodium (Chloride) 250 mls @ 166.667 mls/hr IVPB Q12@0500,1700 [facility] Last Admin: 12/20/18 16:19 Dose: 166.667 mls/hr Losartan Potassium (Cozaar) 100 mg PO DAILY [facility] Last Admin: 12/20/18 09:00 Dose: 100 mg Memantine (Namenda) 5 mg PO Q12 [facility] Last Admin: 12/20/18 08:57 Dose: 5 mg Pantoprazole Sodium (Protonix Ec Tab) 40 mg PO DAILY [facility] Last Admin: 12/20/18 08:58 Dose: 40 mg Potassium Chloride (K-Dur 20 Meq Er Tab) 40 meq PO BID [facility] Last Admin: 12/20/18 16:21 Dose: Not Given Risperidone (Risperdal Tab) 0.25 mg PO Q12 [facility] Last Admin: 12/20/18 08:58 Dose: 0.25 mg Tamsulosin HCl (Flomax) 0.4 mg PO QPM [facility] Last Admin: 12/20/18 17:17 Dose: 0.4 mg - Labs Labs: 12/20/18 09:45
[2018-12-21] MEDS: metroNIDAZOLE 500mg/100ml NS 100 ML IVPB SCH ×3 (00:52→17:16)
[2018-12-21] MEDS: LINACLOTIDE 145 MCG PO SCH (09:23)
[2018-12-21] MEDS: Potassium Chloride 20 mEq ER Tab PO SCH ×2 (09:23→17:19)
[2018-12-21] MEDS: Pantoprazole 40 mg EC Tab PO SCH (09:24)
[2018-12-22] MEDS: metroNIDAZOLE 500mg/100ml NS 100 ML IVPB SCH ×3 (01:31→16:07)
--- NOTE | 2018-12-22 07:59 | CP.PCM.PN ---
Subjective - Date & Time of Evaluation Date of Evaluation: 12/21/18 Time of Evaluation: 12:20 - Subjective Subjective: Patient is stable Has no chest pain or SOB Afebrile Objective - Vital Signs/Intake and Output Vital Signs (last 24 hours): Temp Pulse Resp BP Pulse Ox 98.0 F 69 20 121/65 99 12/21/18 19:22 12/21/18 19:22 12/21/18 19:22 12/21/18 19:22 12/21/18 19:22 - Medications Medications: Current Medications Amlodipine Besylate (Norvasc) 5 mg PO DAILY [facility] Last Admin: 12/21/18 09:27 Dose: 5 mg Carbidopa/Levodopa (Sinemet) 1 tab PO Q8 [facility] Last Admin: 12/22/18 01:31 Dose: 1 tab Docusate Sodium (Colace) 100 mg PO BID [facility] Last Admin: 12/21/18 17:18 Dose: 100 mg Donepezil HCl (Aricept) 5 mg PO HS [facility] Last Admin: 12/21/18 21:34 Dose: 5 mg Ergocalciferol (Drisdol 50,000 Intl Units Cap) 1 cap PO SUN [facility] Last Admin: 12/19/18 08:39 Dose: 1 cap Escitalopram Oxalate (Lexapro) 10 mg PO DAILY [facility] Last Admin: 12/21/18 09:26 Dose: 10 mg Ferrous Sulfate (Feosol) 325 mg PO BID [facility] Last Admin: 12/21/18 17:17 Dose: 325 mg Heparin Sodium (Porcine) (Heparin) 5,000 units SC Q12 [facility]; Protocol Last Admin: 12/21/18 21:35 Dose: 5,000 units Home Med (Linaclotide [Linzess]) 145 mcg PO DAILY [facility] Last Admin: 12/21/18 09:23 Dose: 145 mcg Metronidazole (Flagyl 500mg/100ml Ns) 100 mls @ 100 mls/hr IVPB Q8 [facility] Last Admin: 12/22/18 01:31 Dose: 100 mls/hr Vancomycin HCl 1 gm/ Sodium (Chloride) 250 mls @ 166.667 mls/hr IVPB Q12@0500,1700 [facility] Last Admin: 12/22/18 05:51 Dose: 166.667 mls/hr Losartan Potassium (Cozaar) 100 mg PO DAILY [facility] Last Admin: 12/21/18 09:23 Dose: 100 mg Memantine (Namenda) 5 mg PO Q12 [facility] Last Admin: 12/21/18 21:34 Dose: 5 mg Pantoprazole Sodium (Protonix Ec Tab) 40 mg PO DAILY [facility] Last Admin: 12/21/18 09:24 Dose: 40 mg Potassium Chloride (K-Dur 20 Meq Er Tab) 40 meq PO DAILY [facility] Risperidone (Risperdal Tab) 0.25 mg PO Q12 [facility] Last Admin: 12/21/18 21:34 Dose: 0.25 mg Tamsulosin HCl (Flomax) 0.4 mg PO QPM [facility] Last Admin: 12/21/18 17:17 Dose: 0.4 mg - Labs Labs: 12/20/18 09:45 - Head Exam Head Exam: NORMAL INSPECTION - Eye Exam Eye Exam: Normal appearance - Respiratory Exam Respiratory Exam: Clear to Ausculation Bilateral - Cardiovascular Exam Cardiovascular Exam: REGULAR RHYTHM - GI/Abdominal Exam GI & Abdominal Exam: Normal Bowel Sounds Assessment and Plan (1) Urinary tract infection Status: Acute (2) Dementia Status: Chronic (3) Parkinsons disease Status: Chronic (4) MRSA (methicillin resistant Staphylococcus aureus) infection Status: Acute - Assessment and Plan (Free Text) Plan: Cont meds Cont tx Cont PT
[2018-12-22] MEDS: LINACLOTIDE 145 MCG PO SCH (09:05)
[2018-12-22] MEDS: Potassium Chloride 20 mEq ER Tab PO SCH (09:06)
[2018-12-22] MEDS: Pantoprazole 40 mg EC Tab PO SCH (09:07)
[2018-12-23] MEDS: metroNIDAZOLE 500mg/100ml NS 100 ML IVPB SCH ×3 (01:21→16:37)
[2018-12-23] MEDS: LINACLOTIDE 145 MCG PO SCH (08:30)
[2018-12-23] MEDS: Potassium Chloride 20 mEq ER Tab PO SCH (08:31)
[2018-12-23] MEDS: Pantoprazole 40 mg EC Tab PO SCH (08:33)
--- NOTE | 2018-12-23 17:51 | CP.PCM.PN ---
Subjective - Date & Time of Evaluation Date of Evaluation: 12/23/18 Time of Evaluation: 09:00 - Subjective Subjective: patient seen and examined at bedside. Interim events noted No complaints offered at this time reports of agitation by nursing staff denies cp/sob/fever/chills. available diagnostic data reviewed Review of Systems All systems: reviewed and no additional remarkable complaints except mentioned above Objective Vital Signs Stable - Constitutional Appears: Non-toxic, No Acute Distress Head Exam: NORMAL INSPECTION Eye Exam: Normal appearance Respiratory Exam: NORMAL BREATHING PATTERN Cardiovascular Exam: +S1, +S2 GI & Abdominal Exam: Soft Neurological Exam: Alert, Awake Psychiatric exam: Normal Affect, Normal Mood Skin Exam: Normal Color, Warm Assessment and Plan monitor vitals monitor labs Cont meds Cont tx consultants appreciated input consult psych rest of plan as ordered Objective - Vital Signs/Intake and Output Vital Signs (last 24 hours): Temp Pulse Resp BP Pulse Ox 97.6 F 67 20 123/66 98 12/23/18 16:28 12/23/18 16:29 12/23/18 16:28 12/23/18 16:29 12/23/18 16:29 - Medications Medications: Current Medications Acetaminophen (Tylenol 325mg Tab) 650 mg PO Q4 PRN PRN Reason: for pain level 1-3 Amlodipine Besylate (Norvasc) 5 mg PO DAILY [facility] Last Admin: 12/23/18 08:32 Dose: 5 mg Carbidopa/Levodopa (Sinemet) 1 tab PO Q8 [facility] Last Admin: 12/23/18 16:38 Dose: 1 tab Docusate Sodium (Colace) 100 mg PO BID [facility] Last Admin: 12/23/18 16:39 Dose: 100 mg Donepezil HCl (Aricept) 5 mg PO HS [facility] Last Admin: 12/22/18 21:08 Dose: 5 mg Ergocalciferol (Drisdol 50,000 Intl Units Cap) 1 cap PO SUN [facility] Last Admin: 12/19/18 08:39 Dose: 1 cap Escitalopram Oxalate (Lexapro) 10 mg PO DAILY [facility] Last Admin: 12/23/18 08:32 Dose: 10 mg Ferrous Sulfate (Feosol) 325 mg PO BID [facility] Last Admin: 12/23/18 16:38 Dose: 325 mg Heparin Sodium (Porcine) (Heparin) 5,000 units SC Q12 [facility]; Protocol Last Admin: 12/23/18 08:29 Dose: 5,000 units Home Med (Linaclotide [Linzess]) 145 mcg PO DAILY [facility] Last Admin: 12/23/18 08:30 Dose: 145 mcg Vancomycin HCl 1 gm/ Sodium (Chloride) 250 mls @ 166.667 mls/hr IVPB Q12@0500,1700 [facility] Last Admin: 12/23/18 17:48 Dose: 166.667 mls/hr Losartan Potassium (Cozaar) 100 mg PO DAILY [facility] Last Admin: 12/23/18 08:31 Dose: 100 mg Memantine (Namenda) 5 mg PO Q12 [facility] Last Admin: 12/23/18 08:30 Dose: 5 mg Pantoprazole Sodium (Protonix Ec Tab) 40 mg PO DAILY [facility] Last Admin: 12/23/18 08:33 Dose: 40 mg Potassium Chloride (K-Dur 20 Meq Er Tab) 40 meq PO DAILY [facility] Last Admin: 12/23/18 08:31 Dose: 40 meq Risperidone (Risperdal Tab) 0.25 mg PO Q12 [facility] Last Admin: 12/23/18 08:33 Dose: 0.25 mg Tamsulosin HCl (Flomax) 0.4 mg PO QPM [facility] Last Admin: 12/23/18 17:49 Dose: 0.4 mg - Labs Labs: 12/20/18 09:45
--- NOTE | 2018-12-24 00:58 | CP.PCM.PN ---
Subjective - Date & Time of Evaluation Date of Evaluation: 12/22/18 Time of Evaluation: 09:00 - Subjective Subjective: Pt seen and assessed at bedside. No acute overnight events reported. The pt remains on IV antibiotics for MRSA of the urine. Review of Systems: Reviewed and no additional remarkable complaints reported. Objective Appears: Anxious, Non-toxic, No Acute Distress. Head Exam: NORMAL INSPECTION, normocephalic. Eye Exam: Normal eye inspection, EOMI, PERRLA. Respiratory Exam: NORMAL BREATHING PATTERN, breath sounds clear bilaterally. Cardiovascular Exam: +S1, +S2. RRR. GI & Abdominal Exam: Soft, non-tender, non-distended. Neurological Exam: Alert, awake, oriented x 3. Psychiatric exam: Normal mood. Calm and cooperative. Skin exam: Normal color, warm, dry. Assessment/Impression/Plan: 1.) UTI/MRSA of the urine -Continue Vancomycin. -Infectious disease consult input appreciated. -Monitor for s/s infection. -Once UTI has resolved, pt to follow up with urology for possible cytoscopy. -Continue current treatment. Objective - Vital Signs/Intake and Output Vital Signs (last 24 hours): Temp Pulse Resp BP Pulse Ox 97.9 F 71 20 105/52 L 96 12/23/18 20:59 12/23/18 20:59 12/23/18 20:59 12/23/18 20:59 12/23/18 20:59 - Medications Medications: Current Medications Acetaminophen (Tylenol 325mg Tab) 650 mg PO Q4 PRN PRN Reason: for pain level 1-3 Amlodipine Besylate (Norvasc) 5 mg PO DAILY [facility] Last Admin: 12/23/18 08:32 Dose: 5 mg Carbidopa/Levodopa (Sinemet) 1 tab PO Q8 [facility] Last Admin: 12/24/18 00:43 Dose: 1 tab Docusate Sodium (Colace) 100 mg PO BID [facility] Last Admin: 12/23/18 16:39 Dose: 100 mg Donepezil HCl (Aricept) 5 mg PO HS [facility] Last Admin: 12/23/18 21:34 Dose: 5 mg Ergocalciferol (Drisdol 50,000 Intl Units Cap) 1 cap PO SUN [facility] Last Admin: 12/19/18 08:39 Dose: 1 cap Escitalopram Oxalate (Lexapro) 10 mg PO DAILY [facility] Last Admin: 12/23/18 08:32 Dose: 10 mg Ferrous Sulfate (Feosol) 325 mg PO BID [facility] Last Admin: 12/23/18 16:38 Dose: 325 mg Home Med (Linaclotide [Linzess]) 145 mcg PO DAILY [facility] Last Admin: 12/23/18 08:30 Dose: 145 mcg Vancomycin HCl 1 gm/ Sodium (Chloride) 250 mls @ 166.667 mls/hr IVPB Q12@0500,1700 [facility] Last Admin: 12/23/18 17:48 Dose: 166.667 mls/hr Losartan Potassium (Cozaar) 100 mg PO DAILY [facility] Last Admin: 12/23/18 08:31 Dose: 100 mg Memantine (Namenda) 5 mg PO Q12 [facility] Last Admin: 12/23/18 21:33 Dose: 5 mg Pantoprazole Sodium (Protonix Ec Tab) 40 mg PO DAILY [facility] Last Admin: 12/23/18 08:33 Dose: 40 mg Potassium Chloride (K-Dur 20 Meq Er Tab) 40 meq PO DAILY [facility] Last Admin: 12/23/18 08:31 Dose: 40 meq Risperidone (Risperdal Tab) 0.25 mg PO Q12 [facility] Last Admin: 12/23/18 21:34 Dose: 0.25 mg Tamsulosin HCl (Flomax) 0.4 mg PO QPM [facility] Last Admin: 12/23/18 17:49 Dose: 0.4 mg - Labs Labs: 12/20/18 09:45 Assessment and Plan (1) MRSA (methicillin resistant Staphylococcus aureus) infection Status: Acute (2) Hematuria Status: Acute (3) Urinary tract infection Status: Acute
--- NOTE | 2018-12-24 08:06 | CP.PCM.CON ---
History of Present Illness - History of Present Illness History of Present Illness: Psychiatry consult CC: History of depression HPI: 83 yo male w/ h/o depression, dementia and parkinson's disease, admitted to TCU for continued treatment with IV antibiotics for UTI with MRSA. Patient is a limited historian due to neurocognitive impairment. He denies acute depression/anxiety/AH/VH/SI/HI. Impression: 83 yo male w/ h/o depression and dementia denies acute psychiatric complaints. -Continue current psychiatric medications -No inpatient psychiatric admission indicated at this time. Past Patient History - Past Medical History & Family History Past Medical History?: Yes - Past Social History Smoking Status: Never Smoked - CARDIAC Hx Cardiac Disorders: Yes Hx Hypertension: Yes - PULMONARY Hx Respiratory Disorders: No - NEUROLOGICAL Hx Neurological Disorder: Yes Hx Dementia: Yes Hx Parkinson's Disease: Yes - HEENT Hx HEENT Problems: Yes Hx Cataracts: Yes (HX ANTIONE CATARACT SX) - RENAL Hx Chronic Kidney Disease: No - ENDOCRINE/METABOLIC Hx Endocrine Disorders: No - HEMATOLOGICAL/ONCOLOGICAL Hx Blood Disorders: No Hx AIDS: No Hx Human Immunodeficiency Virus (HIV): No - INTEGUMENTARY Hx Dermatological Problems: No - MUSCULOSKELETAL/RHEUMATOLOGICAL Hx Musculoskeletal Disorders: Yes Hx Arthritis: Yes Hx Falls: No - GASTROINTESTINAL Hx Gastrointestinal Disorders: No - GENITOURINARY/GYNECOLOGICAL Hx Genitourinary Disorders: Yes Hx Hematuria: Yes (S/P CYSTOSCOPY AND EVACUATION OF CLOTS109/22/2017) Hx Incontinence: Yes Hx Prostate Problems: Yes (S/P TURP) - PSYCHIATRIC Hx Psychophysiologic Disorder: No Hx Hallucinations: No Hx Substance Use: No - SURGICAL HISTORY Hx Surgeries: Yes Hx Appendectomy: (denies) Other/Comment: TURP - ANESTHESIA Hx Anesthesia: Yes Hx Anesthesia Reactions: No Hx Malignant Hyperthermia: No Meds Allergies/Adverse Reactions: Allergies Allergy/AdvReac Type Severity Reaction Status Date / Time No Known Allergies Allergy Verified 12/18/18 14:15 - Medications Medications: Current Medications Acetaminophen (Tylenol 325mg Tab) 650 mg PO Q4 PRN PRN Reason: for pain level 1-3 Amlodipine Besylate (Norvasc) 5 mg PO DAILY [facility] Last Admin: 12/23/18 08:32 Dose: 5 mg Carbidopa/Levodopa (Sinemet) 1 tab PO Q8 [facility] Last Admin: 12/24/18 00:43 Dose: 1 tab Docusate Sodium (Colace) 100 mg PO BID [facility] Last Admin: 12/23/18 16:39 Dose: 100 mg Donepezil HCl (Aricept) 5 mg PO HS [facility] Last Admin: 12/23/18 21:34 Dose: 5 mg Ergocalciferol (Drisdol 50,000 Intl Units Cap) 1 cap PO SUN [facility] Last Admin: 12/19/18 08:39 Dose: 1 cap Escitalopram Oxalate (Lexapro) 10 mg PO DAILY [facility] Last Admin: 12/23/18 08:32 Dose: 10 mg Ferrous Sulfate (Feosol) 325 mg PO BID [facility] Last Admin: 12/23/18 16:38 Dose: 325 mg Home Med (Linaclotide [Linzess]) 145 mcg PO DAILY [facility] Last Admin: 12/23/18 08:30 Dose: 145 mcg Vancomycin HCl 1 gm/ Sodium (Chloride) 250 mls @ 166.667 mls/hr IVPB Q12@0500,1700 [facility] Last Admin: 12/24/18 04:54 Dose: 166.667 mls/hr Losartan Potassium (Cozaar) 100 mg PO DAILY [facility] Last Admin: 12/23/18 08:31 Dose: 100 mg Memantine (Namenda) 5 mg PO Q12 [facility] Last Admin: 12/23/18 21:33 Dose: 5 mg Pantoprazole Sodium (Protonix Ec Tab) 40 mg PO DAILY [facility] Last Admin: 12/23/18 08:33 Dose: 40 mg Potassium Chloride (K-Dur 20 Meq Er Tab) 40 meq PO DAILY [facility] Last Admin: 12/23/18 08:31 Dose: 40 meq Risperidone (Risperdal Tab) 0.25 mg PO Q12 [facility] Last Admin: 12/23/18 21:34 Dose: 0.25 mg Tamsulosin HCl (Flomax) 0.4 mg PO QPM [facility] Last Admin: 12/23/18 17:49 Dose: 0.4 mg Results - Vital Signs Recent Vital Signs: Last Vital Signs Temp 98.2 F 12/24/18 07:46 Pulse 71 12/24/18 07:46 Resp 20 12/24/18 07:46 BP 146/78 12/24/18 07:46 Pulse Ox 98 12/24/18 07:46 - Labs Result Diagrams: 12/20/18 09:45
[2018-12-24] MEDS: Potassium Chloride 20 mEq ER Tab PO SCH (08:24)
[2018-12-24] MEDS: LINACLOTIDE 145 MCG PO SCH (08:24)
[2018-12-24] MEDS: Pantoprazole 40 mg EC Tab PO SCH (08:25)
--- NOTE | 2018-12-24 10:49 | CP.PCM.PN ---
Subjective - Date & Time of Evaluation Date of Evaluation: 12/24/18 Time of Evaluation: 10:48 - Subjective Subjective: Patient remains stable Has no chest paain or SOB Had finished course of IV antibiotics Has no fever Has no dysuria Objective - Vital Signs/Intake and Output Vital Signs (last 24 hours): Temp Pulse Resp BP Pulse Ox 98.2 F 71 20 146/78 98 12/24/18 07:46 12/24/18 10:32 12/24/18 07:46 12/24/18 10:32 12/24/18 10:32 - Medications Medications: Current Medications Acetaminophen (Tylenol 325mg Tab) 650 mg PO Q4 PRN PRN Reason: for pain level 1-3 Amlodipine Besylate (Norvasc) 5 mg PO DAILY [facility] Last Admin: 12/24/18 08:25 Dose: 5 mg Carbidopa/Levodopa (Sinemet) 1 tab PO Q8 [facility] Last Admin: 12/24/18 08:25 Dose: 1 tab Docusate Sodium (Colace) 100 mg PO BID [facility] Last Admin: 12/24/18 08:23 Dose: 100 mg Donepezil HCl (Aricept) 5 mg PO HS [facility] Last Admin: 12/23/18 21:34 Dose: 5 mg Ergocalciferol (Drisdol 50,000 Intl Units Cap) 1 cap PO SUN [facility] Last Admin: 12/19/18 08:39 Dose: 1 cap Escitalopram Oxalate (Lexapro) 10 mg PO DAILY [facility] Last Admin: 12/24/18 08:24 Dose: 10 mg Ferrous Sulfate (Feosol) 325 mg PO BID [facility] Last Admin: 12/24/18 08:27 Dose: 325 mg Home Med (Linaclotide [Linzess]) 145 mcg PO DAILY [facility] Last Admin: 12/24/18 08:24 Dose: 145 mcg Vancomycin HCl 1 gm/ Sodium (Chloride) 250 mls @ 166.667 mls/hr IVPB Q12@0500,1700 [facility] Last Admin: 12/24/18 04:54 Dose: 166.667 mls/hr Losartan Potassium (Cozaar) 100 mg PO DAILY [facility] Last Admin: 12/24/18 08:23 Dose: 100 mg Memantine (Namenda) 5 mg PO Q12 [facility] Last Admin: 12/24/18 08:25 Dose: 5 mg Pantoprazole Sodium (Protonix Ec Tab) 40 mg PO DAILY [facility] Last Admin: 12/24/18 08:25 Dose: 40 mg Potassium Chloride (K-Dur 20 Meq Er Tab) 40 meq PO DAILY [facility] Last Admin: 12/24/18 08:24 Dose: 40 meq Risperidone (Risperdal Tab) 0.25 mg PO Q12 [facility] Last Admin: 12/24/18 08:25 Dose: 0.25 mg Tamsulosin HCl (Flomax) 0.4 mg PO QPM [facility] Last Admin: 12/23/18 17:49 Dose: 0.4 mg - Labs Labs: 12/20/18 09:45 - Head Exam Head Exam: NORMAL INSPECTION - Eye Exam Eye Exam: Normal appearance - ENT Exam ENT Exam: Mucous Membranes Moist - Respiratory Exam Respiratory Exam: Clear to Ausculation Bilateral - Cardiovascular Exam Cardiovascular Exam: REGULAR RHYTHM - GI/Abdominal Exam GI & Abdominal Exam: Normal Bowel Sounds Assessment and Plan (1) Urinary tract infection Status: Acute (2) Dementia Status: Chronic (3) Parkinsons disease Status: Chronic (4) MRSA (methicillin resistant Staphylococcus aureus) infection Status: Acute - Assessment and Plan (Free Text) Plan: Cont med Cont PT Discharge plans
[2018-12-24 14:05] LABS: URINE BACTERIA RARE (<OCC); URINE BILIRUBIN NEGATIVE (NEGATIVE); URINE BLOOD NEGATIVE (NEGATIVE); URINE CLARITY SLIGHTY-CLOUDY (Clear); URINE COLOR YELLOW (YELLOW); URINE GLUCOSE (UA) NEG (NEGATIVE); URINE LEUKOCYTE ESTERASE SMALL Leu/uL (Negative); URINE PROTEIN NEGATIVE (NEGATIVE); URINE UROBILINOGEN 0.2-1.0 mg/dL (0.2-1.0)
[2018-12-25] MEDS: LINACLOTIDE 145 MCG PO SCH (09:09)
[2018-12-25] MEDS: Potassium Chloride 20 mEq ER Tab PO SCH (09:09)
[2018-12-25] MEDS: Pantoprazole 40 mg EC Tab PO SCH (09:09)
[2018-12-26 08:39] LABS: ALBUMIN 3.2 g/dL (3.5-5.0); ALT/SGPT 59 U/L (21-72); AST/SGOT 51 U/L (17-59); BLOOD UREA NITROGEN 17 mg/dl (9-20); CALCIUM 8.6 mg/dL (8.4-10.2); GFR NON-AFRICAN AMERICAN > 60
[2018-12-26 08:41] LABS: BASO # 0.1 K/uL (0.0-0.2); BASO % 1.3 % (0.0-2.0); EOS # 0.2 K/uL (0.0-0.7); HEMOGLOBIN 10.5 g/dL (12.0-18.0); LYMPH # 1.5 K/uL (1.0-4.3); LYMPH % 30.5 % (20.0-40.0); MEAN CELL VOLUME 112.6 fl (80.0-94.0); MEAN CORPUSCULAR HEMOGLOBIN 37.9 pg (27.0-31.0); MEAN CORPUSCULAR HGB CONC 33.7 g/dL (33.0-37.0); MEAN PLATELET VOLUME 8.4 fl (7.2-11.7); MONO # 0.5 K/uL (0.0-0.8); MONO % 10.1 % (0.0-10.0); NEUT # 2.7 K/uL (1.8-7.0); NEUT % 54.1 % (50.0-75.0); NRBC % 0.2 % (0.0-0.0); RBC 2.78 Mil/uL (4.40-5.90); RED CELL DISTRIBUTION WIDTH 14.9 % (11.5-14.5); WHITE BLOOD COUNT 5.1 K/uL (4.8-10.8)
[2018-12-26] MEDS: LINACLOTIDE 145 MCG PO SCH (08:41)
[2018-12-26] MEDS: Potassium Chloride 20 mEq ER Tab PO SCH (08:41)
[2018-12-26] MEDS: Pantoprazole 40 mg EC Tab PO SCH (08:42)
[2018-12-26] MEDS: Ergocalciferol 50,000 Intl Units Cap PO SCH (08:42)
[2018-12-26 13:31] LABS: URINE BACTERIA RARE (<OCC); URINE BILIRUBIN NEGATIVE (NEGATIVE); URINE BLOOD NEGATIVE (NEGATIVE); URINE CLARITY CLEAR (Clear); URINE COLOR YELLOW (YELLOW); URINE GLUCOSE (UA) NEG (NEGATIVE); URINE LEUKOCYTE ESTERASE NEG Leu/uL (Negative); URINE PROTEIN NEGATIVE (NEGATIVE); URINE UROBILINOGEN 0.2-1.0 mg/dL (0.2-1.0)
--- NOTE | 2018-12-27 00:23 | CP.PCM.PN ---
Subjective - Date & Time of Evaluation Date of Evaluation: 12/25/18 Time of Evaluation: 09:00 - Subjective Subjective: Pt seen and assessed at bedside. No acute overnight events reported. Pt appears to have depressed mood and a decreased desire to participate in PT/OT. Generalized weakness noted. Review of Systems: Reviewed and no additional remarkable complaints reported except weakness. Objective Appears: Weak, Non-toxic, No Acute Distress. Head Exam: NORMAL INSPECTION, normocephalic. Eye Exam: Normal eye inspection, EOMI, PERRLA. Respiratory Exam: NORMAL BREATHING PATTERN, breath sounds clear bilaterally. Cardiovascular Exam: +S1, +S2. RRR. GI & Abdominal Exam: Soft, non-tender, non-distended. Neurological Exam: Alert, awake, oriented to person. Psychiatric exam: Depressed mood. Calm and cooperative. Skin exam: Normal color, warm, dry. Assessment/Impression/Plan: 1.) UTI/MRSA of the urine -Psych was consulted recently for depressive symptoms here in TCU (decreased desire to participate in activities), as well as periods of agitation and aggression at home. -Infectious disease consult input appreciated. -Monitor for s/s infection. Continue treatment for MRSA of the urine. -Pt appears to be weak and not as active in PT/OT. Assess for additional causes of weakness. Objective - Vital Signs/Intake and Output Vital Signs (last 24 hours): Temp Pulse Resp BP Pulse Ox 97.8 F 71 20 117/62 97 12/26/18 19:35 12/26/18 19:35 12/26/18 19:35 12/26/18 19:35 12/26/18 19:35 - Medications Medications: Current Medications Acetaminophen (Tylenol 325mg Tab) 650 mg PO Q4 PRN PRN Reason: for pain level 1-3 Amlodipine Besylate (Norvasc) 5 mg PO DAILY [facility] Last Admin: 12/26/18 08:43 Dose: 5 mg Carbidopa/Levodopa (Sinemet) 1 tab PO Q8 [facility] Last Admin: 12/26/18 17:42 Dose: 1 tab Docusate Sodium (Colace) 100 mg PO BID [facility] Last Admin: 12/26/18 17:41 Dose: 100 mg Donepezil HCl (Aricept) 5 mg PO HS [facility] Last Admin: 12/26/18 21:11 Dose: 5 mg Ergocalciferol (Drisdol 50,000 Intl Units Cap) 1 cap PO SUN [facility] Last Admin: 12/26/18 08:42 Dose: 1 cap Escitalopram Oxalate (Lexapro) 10 mg PO DAILY [facility] Last Admin: 12/26/18 08:41 Dose: 10 mg Ferrous Sulfate (Feosol) 325 mg PO BID [facility] Last Admin: 12/26/18 17:42 Dose: 325 mg Home Med (Linaclotide [Linzess]) 145 mcg PO DAILY [facility] Last Admin: 12/26/18 08:41 Dose: 145 mcg Losartan Potassium (Cozaar) 100 mg PO DAILY [facility] Last Admin: 12/26/18 08:42 Dose: 100 mg Memantine (Namenda) 5 mg PO Q12 [facility] Last Admin: 12/26/18 21:11 Dose: 5 mg Pantoprazole Sodium (Protonix Ec Tab) 40 mg PO DAILY [facility] Last Admin: 12/26/18 08:42 Dose: 40 mg Potassium Chloride (K-Dur 20 Meq Er Tab) 40 meq PO DAILY [facility] Last Admin: 12/26/18 08:41 Dose: 40 meq Risperidone (Risperdal Tab) 0.25 mg PO Q12 [facility] Last Admin: 12/26/18 21:11 Dose: 0.25 mg Tamsulosin HCl (Flomax) 0.4 mg PO QPM [facility] Last Admin: 12/26/18 17:42 Dose: 0.4 mg - Labs Labs: 12/26/18 06:00 12/26/18 06:00 Assessment and Plan (1) MRSA (methicillin resistant Staphylococcus aureus) infection Status: Acute (2) Hematuria Status: Acute (3) Urinary tract infection Status: Acute
--- NOTE | 2018-12-27 00:27 | CP.PCM.PN ---
Subjective - Date & Time of Evaluation Date of Evaluation: 12/26/18 Time of Evaluation: 11:00 - Subjective Subjective: Pt seen and assessed at bedside. No acute overnight events reported. Pt appears to have depressed mood and a decreased desire to participate in PT/OT. Generalized weakness noted. Review of Systems: Reviewed and no additional remarkable complaints reported except weakness. Objective Appears: Weak, Non-toxic, No Acute Distress. Head Exam: NORMAL INSPECTION, normocephalic. Eye Exam: Normal eye inspection, EOMI, PERRLA. Respiratory Exam: NORMAL BREATHING PATTERN, breath sounds clear bilaterally. Cardiovascular Exam: +S1, +S2. RRR. GI & Abdominal Exam: Soft, non-tender, non-distended. Neurological Exam: Alert, awake, oriented to person. Psychiatric exam: Depressed mood. Calm and cooperative. Skin exam: Normal color, warm, dry. Assessment/Impression/Plan: 1.) UTI/MRSA of the urine -Continued depressed mood and lack of interest in PT/OT, as well as activities. -At this time, we will repeat UA and urine culture to evaluate UTI. -All consults input appreciated. -Monitor for s/s infection. Continue treatment for MRSA of the urine/UTI. -Encouraged PT/OT; persistent generalized weakness observed. Objective - Vital Signs/Intake and Output Vital Signs (last 24 hours): Temp Pulse Resp BP Pulse Ox 97.8 F 71 20 117/62 97 12/26/18 19:35 12/26/18 19:35 12/26/18 19:35 12/26/18 19:35 12/26/18 19:35 - Medications Medications: Current Medications Acetaminophen (Tylenol 325mg Tab) 650 mg PO Q4 PRN PRN Reason: for pain level 1-3 Amlodipine Besylate (Norvasc) 5 mg PO DAILY [facility] Last Admin: 12/26/18 08:43 Dose: 5 mg Carbidopa/Levodopa (Sinemet) 1 tab PO Q8 [facility] Last Admin: 12/26/18 17:42 Dose: 1 tab Docusate Sodium (Colace) 100 mg PO BID [facility] Last Admin: 12/26/18 17:41 Dose: 100 mg Donepezil HCl (Aricept) 5 mg PO HS [facility] Last Admin: 12/26/18 21:11 Dose: 5 mg Ergocalciferol (Drisdol 50,000 Intl Units Cap) 1 cap PO SUN [facility] Last Admin: 12/26/18 08:42 Dose: 1 cap Escitalopram Oxalate (Lexapro) 10 mg PO DAILY [facility] Last Admin: 12/26/18 08:41 Dose: 10 mg Ferrous Sulfate (Feosol) 325 mg PO BID [facility] Last Admin: 12/26/18 17:42 Dose: 325 mg Home Med (Linaclotide [Linzess]) 145 mcg PO DAILY [facility] Last Admin: 12/26/18 08:41 Dose: 145 mcg Losartan Potassium (Cozaar) 100 mg PO DAILY [facility] Last Admin: 12/26/18 08:42 Dose: 100 mg Memantine (Namenda) 5 mg PO Q12 [facility] Last Admin: 12/26/18 21:11 Dose: 5 mg Pantoprazole Sodium (Protonix Ec Tab) 40 mg PO DAILY [facility] Last Admin: 12/26/18 08:42 Dose: 40 mg Potassium Chloride (K-Dur 20 Meq Er Tab) 40 meq PO DAILY [facility] Last Admin: 12/26/18 08:41 Dose: 40 meq Risperidone (Risperdal Tab) 0.25 mg PO Q12 [facility] Last Admin: 12/26/18 21:11 Dose: 0.25 mg Tamsulosin HCl (Flomax) 0.4 mg PO QPM [facility] Last Admin: 12/26/18 17:42 Dose: 0.4 mg - Labs Labs: 12/26/18 06:00 12/26/18 06:00 Assessment and Plan (1) MRSA (methicillin resistant Staphylococcus aureus) infection Status: Acute (2) Hematuria Status: Acute (3) Urinary tract infection Status: Acute
[2018-12-27] MEDS: Potassium Chloride 20 mEq ER Tab PO SCH (09:01)
[2018-12-27] MEDS: LINACLOTIDE 145 MCG PO SCH (09:02)
[2018-12-27] MEDS: Pantoprazole 40 mg EC Tab PO SCH (09:03)
--- NOTE | 2018-12-27 17:57 | CP.PCM.PN ---
Subjective - Date & Time of Evaluation Date of Evaluation: 12/27/18 Time of Evaluation: 10:00 - Subjective Subjective: patient seen and examined at bedside. Interim events noted No complaints offered at this time reports of diarrhea denies cp/sob/fever/chills. available diagnostic data reviewed Review of Systems All systems: limited due to dementia Objective Vital Signs Stable - Constitutional Appears: Non-toxic, No Acute Distress Head Exam: NORMAL INSPECTION Eye Exam: Normal appearance Respiratory Exam: NORMAL BREATHING PATTERN Cardiovascular Exam: +S1, +S2 GI & Abdominal Exam: Soft Neurological Exam: Alert, Awake Psychiatric exam: Normal Affect, Normal Mood Skin Exam: Normal Color, Warm Assessment and Plan monitor vitals monitor labs Cont meds Cont tx consultants appreciated input c diff stool ag rest of plan as ordered Objective - Vital Signs/Intake and Output Vital Signs (last 24 hours): Temp Pulse Resp BP Pulse Ox 97.8 F 66 20 107/66 98 12/27/18 16:41 12/27/18 16:41 12/27/18 16:41 12/27/18 16:41 12/27/18 16:41 - Medications Medications: Current Medications Acetaminophen (Tylenol 325mg Tab) 650 mg PO Q4 PRN PRN Reason: for pain level 1-3 Amlodipine Besylate (Norvasc) 5 mg PO DAILY [facility] Last Admin: 12/27/18 09:02 Dose: 5 mg Carbidopa/Levodopa (Sinemet) 1 tab PO Q8 [facility] Last Admin: 12/27/18 17:10 Dose: 1 tab Donepezil HCl (Aricept) 5 mg PO HS [facility] Last Admin: 12/26/18 21:11 Dose: 5 mg Ergocalciferol (Drisdol 50,000 Intl Units Cap) 1 cap PO SUN [facility] Last Admin: 12/26/18 08:42 Dose: 1 cap Escitalopram Oxalate (Lexapro) 10 mg PO DAILY [facility] Last Admin: 12/27/18 09:01 Dose: 10 mg Ferrous Sulfate (Feosol) 325 mg PO BID [facility] Last Admin: 12/27/18 17:12 Dose: 325 mg Home Med (Linaclotide [Linzess]) 145 mcg PO DAILY [facility] Last Admin: 12/27/18 09:02 Dose: 145 mcg Losartan Potassium (Cozaar) 100 mg PO DAILY [facility] Last Admin: 12/27/18 08:59 Dose: 100 mg Memantine (Namenda) 5 mg PO Q12 [facility] Last Admin: 12/27/18 09:02 Dose: 5 mg Pantoprazole Sodium (Protonix Ec Tab) 40 mg PO DAILY [facility] Last Admin: 12/27/18 09:03 Dose: 40 mg Potassium Chloride (K-Dur 20 Meq Er Tab) 40 meq PO DAILY [facility] Last Admin: 12/27/18 09:01 Dose: 40 meq Risperidone (Risperdal Tab) 0.25 mg PO Q12 [facility] Last Admin: 12/27/18 09:03 Dose: 0.25 mg Tamsulosin HCl (Flomax) 0.4 mg PO QPM [facility] Last Admin: 12/27/18 17:10 Dose: 0.4 mg - Labs Labs: 12/26/18 06:00 12/26/18 06:00 Assessment and Plan (1) Diarrhea Status: Acute
[2018-12-28 06:43] LABS: ALBUMIN 3.4 g/dL (3.5-5.0); ALT/SGPT 24 U/L (21-72); AST/SGOT 44 U/L (17-59); BLOOD UREA NITROGEN 25 mg/dl (9-20); CALCIUM 8.7 mg/dL (8.4-10.2); GFR NON-AFRICAN AMERICAN 58
[2018-12-28 06:52] LABS: MEAN CORPUSCULAR HEMOGLOBIN 41.3 pg (27.0-31.0); RBC 2.61 Mil/uL (4.40-5.90); RED CELL DISTRIBUTION WIDTH 14.9 % (11.5-14.5); WHITE BLOOD COUNT 6.6 K/uL (4.8-10.8)
[2018-12-28 06:54] LABS: HEMOGLOBIN 10.8 g/dL (12.0-18.0); MEAN CELL VOLUME 114.6 fl (80.0-94.0)
[2018-12-28] MEDS: LINACLOTIDE 145 MCG PO SCH (08:31)
[2018-12-28] MEDS: Potassium Chloride 20 mEq ER Tab PO SCH (08:32)
[2018-12-28] MEDS: Pantoprazole 40 mg EC Tab PO SCH (08:33)
[2018-12-29] MEDS: Potassium Chloride 20 mEq ER Tab PO SCH (08:57)
[2018-12-29] MEDS: LINACLOTIDE 145 MCG PO SCH (08:57)
[2018-12-29] MEDS: Pantoprazole 40 mg EC Tab PO SCH (08:58)
[2018-12-29 15:53] VITALS: O2SAT 98
[2018-12-30 07:57] VITALS: BP 131/77; TEMP 97.5
[2018-12-30] MEDS: LINACLOTIDE 145 MCG PO SCH (09:34)
[2018-12-30] MEDS: Pantoprazole 40 mg EC Tab PO SCH (09:35)
[2018-12-30] MEDS: Potassium Chloride 20 mEq ER Tab PO SCH (09:35)
[2018-12-30 09:39] VITALS: PULSE 73
--- NOTE | 2018-12-30 11:10 | PCM.RRT ---
<Micaela Denny - Last Filed: 12/30/18 11:25> FINISH MACHINE TENDER Nurse Assessment - Situation FINISH MACHINE TENDER Reason for Call: Hypotension - IV IV Inserted during FINISH MACHINE TENDER?: Yes New IV Insertion Tolerance:: Good I.Reason for FINISH MACHINE TENDER - A) Acute Change in Patient: (Select all that apply): Staff member or family is worried about patient Subjective: Arrival vitals: BP: 88/30 HR 75 SPO2 99% FINISH MACHINE TENDER called for AMS/syncopal episode/unresponsiveness for 83-year-old male on day 13 of TCU admission. As per RN, pt was sitting in wheelchair bedside when he became unresponsive and began drooling. He was then placed in bed in trendelenberg position. Upon arrival to [employer] MACHINE TENDER he was responsive to verbal commands, A&O to place and self, strength intact to all extremities and no focal deficits wer noted. Vitals normalized. Pt PCPDuane was present and bedside throughout FINISH MACHINE TENDER and ordered for CBC, CMP and prolactin. All chart data reviewed, syncope does not seem to be medication-induced; of note pt was having previous episodes of extensive diarrhea. Pt will be sent to ED for readmission of observation. End vitals: BP: 118/62 HR 69 SPO2 99% FINISH MACHINE TENDER team: Dr Modi, Dr Bonilla, Dr Crouch, Dr Denny - Constitutional Appears: Non-toxic, No Acute Distress - Head Head Exam: ATRAUMATIC, NORMAL INSPECTION, NORMOCEPHALIC - Eyes Eye Exam: Normal appearance - Respiratory Exam Respiratory Exam: NORMAL BREATHING PATTERN. absent: Respiratory Distress - Cardiovascular Exam Cardiovascular Exam: REGULAR RHYTHM - GI/Abdominal Exam GI & Abdominal Exam: Soft. absent: Tenderness - Neurological Exam Neurological Exam: Alert, Awake, CN II-XII Intact, Reflexes Normal - Extremities Exam Extremities Exam: Full ROM, Normal Capillary Refill, Normal Inspection. absent: Calf Tenderness, Pedal Edema, Tenderness Additional comments: strength intact bilaterally Plan - Assessment of Findings&Treatment Plan Pt PCPDuane was present and bedside throughout FINISH MACHINE TENDER and ordered for CBC, CMP and prolactin. All chart data reviewed, syncope does not seem to be medication-induced; of note pt was having previous episodes of extensive diarrhea. Pt will be sent to ED for readmission of observation. <Maricruz Modi - Last Filed: 12/30/18 16:43> FINISH MACHINE TENDER Nurse Assessment - Vital Signs Vital Signs: Rapid Response Vital Sign Blood Pressure 88/30 Pulse Rate 66 Respiratory Rate 21 - Vital Signs at end of FINISH MACHINE TENDER Vital Signs at end of FINISH MACHINE TENDER: Rapid Response End Vital Sign Blood Pressure 118/62 Pulse Rate 69 Respiratory Rate 21 O2 Sat by Pulse Oximetry 99 Attending/Attestation - Attestation I have personally seen and examined this patient.: Yes I have fully participated in the care of the patient.: Yes I have reviewed all pertinent clinical information, including history, physical exam and plan: Yes Notes (Text): Syncope ? etiology prob Orthostatic Hypotension - Pt was found unresponsive for a few seconds, staff gives hx of recent diarrhea - BP 88/30 systolic and HR 60s, rpt BP 118/62 - Pt now alert, oriented and Follows commands, no FND - Glucose 110 - no EKG change -CBC, CMP, Trop, CK, Lactic acid - CT of head - discussed with pt's PMD - [employer] Duane Mckay- wants pt to be observed overnight and worked up for this Syncope - will d/c pt to ED - Signed off case to ED physician
[2018-12-30 12:14] LABS: BASO # 0.1 K/uL (0.0-0.2); BASO % 0.9 % (0.0-2.0); EOS # 0.2 K/uL (0.0-0.7); HEMOGLOBIN 11.5 g/dL (12.0-18.0); LYMPH # 2.7 K/uL (1.0-4.3); MEAN CORPUSCULAR HEMOGLOBIN 47.6 pg (27.0-31.0); MEAN CORPUSCULAR HGB CONC 39.6 g/dL (33.0-37.0); MONO # 0.5 K/uL (0.0-0.8); MONO % 6.9 % (0.0-10.0); NEUT # 3.2 K/uL (1.8-7.0); NEUT % 48.2 % (50.0-75.0); NRBC % 0.4 % (0.0-0.0); RBC 2.42 Mil/uL (4.40-5.90); RED CELL DISTRIBUTION WIDTH 15.7 % (11.5-14.5); WHITE BLOOD COUNT 6.6 K/uL (4.8-10.8)
[2018-12-30 12:25] LABS: ALBUMIN 3.9 g/dL (3.5-5.0); ALT/SGPT 35 U/L (21-72); AST/SGOT 35 U/L (17-59); BLOOD UREA NITROGEN 23 mg/dl (9-20); CALCIUM 8.6 mg/dL (8.4-10.2); GFR NON-AFRICAN AMERICAN > 60
[2018-12-30 12:41] LABS: MEAN CELL VOLUME 120.2 fl (80.0-94.0)
[2018-12-30 20:37] LABS: PROLACTIN 40.1 ng/mL (3.7-17.9)
== END 2018-12-30 11:10 | disposition short-term general hospital (02) | DRG 690 ==
LOC: H.TCU 14:35
PROVIDERS: ADMIT Family Medicine; ATTEND Family Medicine
PROC: 3E03329 Introduction of Other Anti-infective into Peripheral Vein, Percutaneous Approach (ICD-10-PCS; principal; 2018-12-18)
PROC: F07Z9FZ Gait Training/Functional Ambulation Treatment using Assistive, Adaptive, Supportive or Protective Equipment (ICD-10-PCS; 2018-12-18)
PROC: F08Z4FZ Home Management Treatment using Assistive, Adaptive, Supportive or Protective Equipment (ICD-10-PCS; 2018-12-18)
PROC: F07M6FZ Therapeutic Exercise Treatment of Musculoskeletal System - Whole Body using Assistive, Adaptive, Supportive or Protective Equipment (ICD-10-PCS; 2018-12-19)
DX: N39.0 Urinary tract infection, site not specified (principal); B95.62 Methicillin resistant Staphylococcus aureus infection as the cause of diseases classified elsewhere; G20 Parkinson's disease; F02.80 Dementia in other diseases classified elsewhere, unspecified severity, without behavioral disturbance, psychotic disturbance, mood disturbance, and anxiety; I95.1 Orthostatic hypotension; R19.7 Diarrhea, unspecified; I10 Essential (primary) hypertension; R53.1 Weakness; F32.9 Major depressive disorder, single episode, unspecified

== ENCOUNTER 2018-12-30 11:05 | Inpatient (IN) | payer MEDICARE, OTHER ==
[2018-12-30 11:16] VITALS: BMI 62.0
[2018-12-30 12:45] LABS: VENOUS BLOOD GAS BASE EXCESS -1.8 mmol/L (0.0-2.0); VENOUS BLOOD GAS PCO2 55 mmHg (40-60); VENOUS BLOOD GAS PO2 31 mm/Hg (30-55); VENOUS BLOOD PH 7.28 (7.32-7.43)
[2018-12-30] MEDS ORDERED: Sodium Chloride 0.9% 1,000 ML IV STA ×2 (12:54→16:23)
[2018-12-30 13:10] LABS: ALBUMIN 3.6 g/dL (3.5-5.0); ALT/SGPT 33 U/L (21-72); AST/SGOT 30 U/L (17-59); BLOOD UREA NITROGEN 22 mg/dl (9-20); CALCIUM 8.3 mg/dL (8.4-10.2); GFR NON-AFRICAN AMERICAN > 60
--- NOTE | 2018-12-30 13:18 | ED PDOC ---
HPI: General Adult Time Seen by Provider: 12/30/18 11:11 Chief Complaint (Nursing): Altered Mental Status Chief Complaint (Provider): syncope History Per: Patient, Other (Danielito Mckay ANP) History/Exam Limitations: no limitations Current Symptoms Are (Timing): Better Severity: Moderate Recently: Hospitalized Additional Complaint(s): 83yo male arrives from TCU after witnessed syncopal episode in wheelchair, per report had just gone to bathroom, in chair slumped over and lost postural tone, BP borderline low, no lateral weakness, facial droop, preceeding change in speech or reports of vomiting but per notes +recent diarrhea. Per OVERHAULER HELPER Woody, adm itted to TCU for MRSA UTI. No reports recent fever. Patient poor historian. Past Medical History Reviewed: Historical Data, Nursing Documentation, Vital Signs Vital Signs: Last Vital Signs Temp Pulse 69 12/30/18 12:41 Resp 20 12/30/18 12:41 BP Pulse Ox 100 12/30/18 12:41 Primary Care Provider: Conner Modi - Medical History PMH: Arthritis, Dementia, HTN, Parkinson's Disease Denies: Diabetes, HIV, Chronic Kidney Disease - Surgical History Surgical History: Comment Only: Appendectomy (denies) - Family History Family History: States: Unknown Family Hx - Living Arrangements Living Arrangements: [facility] (from TCU) - Home Medications Home Medications: Ambulatory Orders Medication Instructions Recorded Donepezil HCl [Aricept] 5 mg PO HS #90 tablet 08/10/18 Ergocalciferol (Vitamin D2) 50,000 unit PO SUN #12 capsule 08/10/18 [Vitamin D2] Escitalopram [Lexapro] 10 mg PO DAILY #90 tab 08/10/18 Tamsulosin [Flomax] 0.4 mg PO QPM #90 cap 08/10/18 Carbidopa/Levodopa 1 tab PO Q8 12/15/18 [Carbidopa-Levodopa 25-100 Tab] Linaclotide [Linzess] 145 mcg PO DAILY 12/15/18 Losartan [Cozaar] 100 mg PO DAILY 12/15/18 Memantine [Namenda] 5 mg PO Q12 12/15/18 Risperidone [Risperdal] 0.25 mg PO Q12 12/15/18 amLODIPine [Norvasc] 5 mg PO DAILY 12/15/18 Ferrous Sulfate [Feosol] 325 mg PO BID 12/18/18 Pantoprazole [Protonix EC Tab] 40 mg PO DAILY 12/18/18 Potassium Chloride [K-Dur 20 mEq 40 meq PO DAILY 12/18/18 ER Tab] - Allergies Allergies/Adverse Reactions: Allergies Allergy/AdvReac Type Severity Reaction Status Date / Time No Known Allergies Allergy Verified 12/18/18 14:15 Review of Systems ROS Statement: Except As Marked, All Systems Reviewed And Found Negative Constitutional: Positive for: Weakness, Malaise. Negative for: Fever Eyes: Negative for: Conjunctivae Inflammation ENT: Negative for: Throat Pain Gastrointestinal: Positive for: Diarrhea. Negative for: Abdominal Pain Genitourinary Male: Negative for: Dysuria Musculoskeletal: Negative for: Neck Pain, Back Pain Neurological: Positive for: Dizziness Psych: Negative for: Suicidal ideation Physical Exam - Reviewed Nursing Documentation Reviewed: Yes Vital Signs Reviewed: Yes - Physical Exam Appears: Positive for: Non-toxic Head Exam: Positive for: ATRAUMATIC, NORMAL INSPECTION Skin: Positive for: Pallor (mild). Negative for: Diaphoresis Eye Exam: Positive for: EOMI. Negative for: Periorbital swelling ENT: Positive for: Normal ENT Inspection Neck: Positive for: Painless ROM Cardiovascular/Chest: Positive for: Chest Non Tender. Negative for: Bradycardia, Tachycardia Respiratory: Negative for: Rhonchi, Wheezing, Respiratory Distress Pulses-Radial (L): 2+ Pulses-Radial (R): 2+ Gastrointestinal/Abdominal: Positive for: Soft. Negative for: Tenderness Extremity: Positive for: Normal ROM. Negative for: Tenderness Neurological/Psych: Positive for: Awake, Alert, Other (mild confusion) - Laboratory Results Result Diagrams: 12/30/18 14:52 12/30/18 12:25 Lab Results: pO2 31 mm/Hg (30-55) 12/30/18 12:37 VBG pH 7.28 (7.32-7.43) L 12/30/18 12:37 VBG pCO2 55 mmHg (40-60) 12/30/18 12:37 VBG HCO3 22.2 mmol/L 12/30/18 12:37 VBG Total CO2 27.5 mmol/L (22-28) 12/30/18 12:37 VBG O2 Sat (Calc) 62.1 % (40-65) 12/30/18 12:37 VBG Base Excess -1.8 mmol/L (0.0-2.0) L 12/30/18 12:37 VBG Potassium 12.2 mmol/L (3.6-5.2) H* 12/30/18 12:37 Sodium 130.0 mmol/L (132-148) L 12/30/18 12:37 Chloride 107.0 mmol/L (98-107) 12/30/18 12:37 Glucose 124 mg/dL (75-110) H 12/30/18 12:37 Lactate 2.2 mmol/L (0.7-2.1) H 12/30/18 12:37 FiO2 21.0 % 12/30/18 12:37 Crit Value Called To Sarah palmer 12/30/18 12:37 Crit Value Called By 292 12/30/18 12:37 Crit Value Read Back Y 12/30/18 12:37 Blood Gas Notified Time 1245 12/30/18 12:37 Total Bilirubin 1.3 mg/dl (0.2-1.3) 12/30/18 12:25 AST 30 U/L (17-59) 12/30/18 12:25 ALT 33 U/L (21-72) 12/30/18 12:25 Alkaline Phosphatase 63 U/L (38-126) 12/30/18 12:25 Total Protein 7.1 G/DL (6.3-8.2) 12/30/18 12:25 Albumin 3.6 g/dL (3.5-5.0) 12/30/18 12:25 Globulin 3.5 gm/dL (2.2-3.9) 12/30/18 12:25 Albumin/Globulin Ratio 1.0 (1.0-2.1) 12/30/18 12:25 - ECG O2 Sat by Pulse Oximetry: 100 Medical Decision Making Medical Decision Making: workup for syncopal episode in setting of current TCU hospitalization and reports diarrhea earlier in week labs from TCU this morning reviewed pt does not meet SIRS criteria CBC repeated and Hgb dropped about 2 points Rectal exam performed, soft stool in diaper, dark but not melena, no gross blood, guiac sent to lab chem unremarkable other than mild elev lactate possible dehydration d/w Alyssa Mckay ANP for Dr Modi for admission IVF continued tolerated full dinner approx 430p turkey/potatoes guiac neg gentle IVF continues admit Dr Modi obs tele repeat Hgb in am Disposition - Clinical Impression Clinical Impression: Syncope, Dehydration - Patient ED Disposition Is Patient to be Admitted: No - Disposition Disposition Time: 13:01 Condition: FAIR - Pt Status Changed To: Hospital Disposition Of: Observation
--- NOTE | 2018-12-30 13:42 | RAD ---
Date of service: 12/30/2018 HISTORY: syncope COMPARISON: Frontal chest radiograph 12/15/2018. TECHNIQUE: 1 view obtained. FINDINGS: LUNGS: No active pulmonary disease. PLEURA: No significant pleural effusion identified, no pneumothorax apparent. CARDIOVASCULAR: Calcific atherosclerotic changes are seen related to the thoracic aorta. Stable mild cardiomegaly. No pulmonary vascular congestion. OSSEOUS STRUCTURES: No significant abnormalities. VISUALIZED UPPER ABDOMEN: Normal. OTHER FINDINGS: None. IMPRESSION: Mild cardiomegaly unchanged. No pulmonary vascular congestion or interval infiltrate bilaterally.
[2018-12-30 15:36] LABS: PROTHROMBIN TIME 10.9 Seconds (9.8-13.1)
[2018-12-30 15:38] LABS: PARTIAL THROMBOPLASTIN TIME 32.8 Seconds (25.6-37.1)
--- NOTE | 2018-12-30 16:03 | CARD ---
APPROVED REPORT Date of service: 12/30/2018 EKG Measurement Heart [id number] <Conclusion> Normal sinus rhythm Normal ECG
[2018-12-30 16:42] LABS: BASO # 0.1 K/uL (0.0-0.2); BASO % 0.9 % (0.0-2.0); EOS # 0.1 K/uL (0.0-0.7); EOS % 1.3 % (0.0-4.0); HEMOGLOBIN 9.1 g/dL (12.0-18.0); LYMPH # 0.6 K/uL (1.0-4.3); LYMPH % 10.2 % (20.0-40.0); MEAN CORPUSCULAR HEMOGLOBIN 31.8 pg (27.0-31.0); MEAN CORPUSCULAR HGB CONC 30.9 g/dL (33.0-37.0); MEAN PLATELET VOLUME 9.8 fl (7.2-11.7); MONO # 0.4 K/uL (0.0-0.8); NEUT % 81.6 % (50.0-75.0); NRBC % 0.3 % (0.0-0.0); RBC 2.87 Mil/uL (4.40-5.90); RED CELL DISTRIBUTION WIDTH 36.9 % (11.5-14.5); WHITE BLOOD COUNT 6.2 K/uL (4.8-10.8)
[2018-12-30 16:49] LABS: VENOUS BLOOD GAS BASE EXCESS -1.1 mmol/L (0.0-2.0); VENOUS BLOOD GAS PCO2 48 mmHg (40-60); VENOUS BLOOD GAS PO2 48 mm/Hg (30-55); VENOUS BLOOD PH 7.33 (7.32-7.43)
[2018-12-31 06:22] LABS: ALBUMIN 3.5 g/dL (3.5-5.0); ALT/SGPT 49 U/L (21-72); AST/SGOT 27 U/L (17-59); BLOOD UREA NITROGEN 22 mg/dl (9-20); CALCIUM 8.4 mg/dL (8.4-10.2); GFR NON-AFRICAN AMERICAN > 60
[2018-12-31 06:31] LABS: BASO # 0.1 K/uL (0.0-0.2); BASO % 1.2 % (0.0-2.0); EOS # 0.1 K/uL (0.0-0.7); EOS % 2.8 % (0.0-4.0); HEMOGLOBIN 11.4 g/dL (12.0-18.0); LYMPH # 1.2 K/uL (1.0-4.3); LYMPH % 25.3 % (20.0-40.0); MEAN CELL VOLUME 116.7 fl (80.0-94.0); MEAN CORPUSCULAR HEMOGLOBIN 44.2 pg (27.0-31.0); MEAN CORPUSCULAR HGB CONC 37.9 g/dL (33.0-37.0); MONO # 0.3 K/uL (0.0-0.8); MONO % 7.3 % (0.0-10.0); NEUT # 2.9 K/uL (1.8-7.0); NEUT % 63.4 % (50.0-75.0); NRBC % 0.2 % (0.0-0.0); RBC 2.58 Mil/uL (4.40-5.90); RED CELL DISTRIBUTION WIDTH 14.8 % (11.5-14.5); WHITE BLOOD COUNT 4.6 K/uL (4.8-10.8)
[2018-12-31] MEDS ORDERED: Potassium Chloride 20 mEq ER Tab PO SCH (09:00)
[2018-12-31] MEDS: Pantoprazole 40 mg EC Tab PO SCH (09:03)
[2019-01-01 06:39] LABS: BLOOD UREA NITROGEN 20 mg/dl (9-20); CALCIUM 8.7 mg/dL (8.4-10.2); GFR NON-AFRICAN AMERICAN > 60
[2019-01-01 06:55] LABS: HEMOGLOBIN 11.2 g/dL (12.0-18.0); MEAN CELL VOLUME 118.2 fl (80.0-94.0); MEAN CORPUSCULAR HEMOGLOBIN 43.4 pg (27.0-31.0); MEAN CORPUSCULAR HGB CONC 36.7 g/dL (33.0-37.0); RBC 2.57 Mil/uL (4.40-5.90); RED CELL DISTRIBUTION WIDTH 14.7 % (11.5-14.5); WHITE BLOOD COUNT 4.9 K/uL (4.8-10.8)
[2019-01-01] MEDS: Pantoprazole 40 mg EC Tab PO SCH (10:42)
[2019-01-02] MEDS ORDERED: Ergocalciferol 50,000 Intl Units Cap PO SCH (09:00)
[2019-01-02] MEDS: Pantoprazole 40 mg EC Tab PO SCH (09:05)
[2019-01-02] MEDS: Sodium Chloride 0.9% 1,000 ML IV SCH (20:50)
[2019-01-03 00:22] VITALS: RESP 20
[2019-01-03 06:13] LABS: ALBUMIN 3.4 g/dL (3.5-5.0)
--- NOTE | 2019-01-03 06:31 | CP.PCM.HP ---
History of Present Illness - History of Present Illness History of Present Illness: This is an 83 y/o male who was in TCU and was being arranged for discharge to home when he was noted to be hypotensive, then became unresponsive with drooling of the mouth. An LOOP TACKER was callled and patient was responsive after LOOP TACKER. There was no focal deficit noted. He was transferred to telemetry. Patient has a hx of dementia and Parkinsons. Has been physically debilitated staying mostly in bed. He was at TCU for continuation of IV antibiotics for UTI and for phys therapy for debility. Present on Admission - Present on Admission Any Indicators Present on Admission: No History of DVT/PE: No History of Uncontrolled Diabetes: No Urinary Catheter: No Decubitus Ulcer Present: No Review of Systems - Review of Systems Systems not reviewed;Unavailable: Dementia - Constitutional Constitutional: Anorexia - Neurological Neurological: Abnormal Gait, Confusion, Memory Loss Past Patient History - Past Medical History & Family History Past Medical History?: Yes - Past Social History Smoking Status: Never Smoked - CARDIAC Hx Cardiac Disorders: Yes Hx Hypertension: Yes - PULMONARY Hx Respiratory Disorders: No - NEUROLOGICAL Hx Neurological Disorder: Yes Hx Dementia: Yes Hx Parkinson's Disease: Yes - HEENT Hx HEENT Problems: Yes Hx Cataracts: Yes (HX ANTIONE CATARACT SX) - RENAL Hx Chronic Kidney Disease: No - ENDOCRINE/METABOLIC Hx Endocrine Disorders: No - HEMATOLOGICAL/ONCOLOGICAL Hx Blood Disorders: No Hx Human Immunodeficiency Virus (HIV): No - INTEGUMENTARY Hx Dermatological Problems: No - MUSCULOSKELETAL/RHEUMATOLOGICAL Hx Musculoskeletal Disorders: Yes Hx Arthritis: Yes Hx Falls: No - GASTROINTESTINAL Hx Gastrointestinal Disorders: No - GENITOURINARY/GYNECOLOGICAL Hx Genitourinary Disorders: Yes Hx Hematuria: Yes (S/P CYSTOSCOPY AND EVACUATION OF CLOTS109/22/2017) Hx Incontinence: Yes Hx Prostate Problems: Yes (S/P TURP) - PSYCHIATRIC Hx Psychophysiologic Disorder: No Hx Hallucinations: No Hx Substance Use: No - SURGICAL HISTORY Hx Appendectomy: (denies) - ANESTHESIA Hx Anesthesia: Yes Hx Anesthesia Reactions: No Hx Malignant Hyperthermia: No Meds Allergies/Adverse Reactions: Allergies Allergy/AdvReac Type Severity Reaction Status Date / Time No Known Allergies Allergy Verified 12/18/18 14:15 Physical Exam - Head Exam Head Exam: NORMAL INSPECTION - Eye Exam Eye Exam: Normal appearance - ENT Exam ENT Exam: Mucous Membranes Moist - Respiratory Exam Respiratory Exam: Clear to Auscultation Bilateral - Cardiovascular Exam Cardiovascular Exam: REGULAR RHYTHM - GI/Abdominal Exam GI & Abdominal Exam: Normal Bowel Sounds - Neurological Exam Neurological exam: CN II-XII Intact Results - Vital Signs Recent Vital Signs: Last Vital Signs Temp 97.8 F 01/03/19 05:20 Pulse 74 01/03/19 05:20 Resp 20 01/03/19 05:20 BP 130/72 01/03/19 05:20 Pulse Ox 99 01/03/19 05:20 - Labs Result Diagrams: 01/01/19 05:16 01/03/19 04:30 Labs: Laboratory Results - last 24 hr 01/03/19 04:30 Sodium 139 Potassium 4.6 Chloride 108 H Carbon Dioxide 23 Anion Gap 13 BUN 28 H Creatinine 1.4 Est GFR ( Amer) 58 Est GFR (Non-Af Amer) 48 Random Glucose 87 Calcium 8.0 L Total Bilirubin 0.9 AST 22 ALT 32 Alkaline Phosphatase 62 Total Protein 6.7 Albumin 3.4 L Globulin 3.3 Albumin/Globulin Ratio 1.0 Assessment & Plan (1) Syncope Status: Acute (2) Dehydration Status: Acute (3) MRSA (methicillin resistant Staphylococcus aureus) infection Status: Acute (4) Physical debility Status: Acute (5) Dementia Status: Chronic (6) Parkinsons disease Status: Chronic (7) Hypertension Status: Acute - Assessment and Plan (Free Text) Plan: Cont meds Cont tx Cont hydration check labs nugtrition restart PT telemetry neuro eval.
--- NOTE | 2019-01-03 06:45 | CP.PCM.PN ---
Subjective - Date & Time of Evaluation Date of Evaluation: 01/01/19 Time of Evaluation: 16:20 - Subjective Subjective: Patient remains stable Has no chets pain or SOB Has poor appetite. Stays mostly in bed. Objective - Vital Signs/Intake and Output Vital Signs (last 24 hours): Temp Pulse Resp BP Pulse Ox 97.8 F 74 20 130/72 99 01/03/19 05:20 01/03/19 05:20 01/03/19 05:20 01/03/19 05:20 01/03/19 05:20 - Medications Medications: Current Medications Carbidopa/Levodopa (Sinemet) 1 tab PO Q8 [facility] Last Admin: 01/03/19 01:36 Dose: 1 tab Donepezil HCl (Aricept) 5 mg PO HS [facility] Last Admin: 01/02/19 21:00 Dose: 5 mg Ergocalciferol (Drisdol 50,000 Intl Units Cap) 1 cap PO SUN [facility] Last Admin: 01/02/19 09:03 Dose: 1 cap Escitalopram Oxalate (Lexapro) 10 mg PO DAILY [facility] Last Admin: 01/02/19 09:03 Dose: 10 mg Ferrous Sulfate (Feosol) 325 mg PO BID [facility] Last Admin: 01/02/19 16:39 Dose: 325 mg Home Med (Linaclotide [Linzess]) 145 mcg PO DAILY [facility] Last Admin: 01/02/19 09:04 Dose: 145 mcg Sodium Chloride (Sodium Chloride 0.9%) 1,000 mls @ 80 mls/hr IV .[id number] [facility] Stop: 01/03/19 19:59 Last Admin: 01/02/19 20:50 Dose: 80 mls/hr Losartan Potassium (Cozaar) 50 mg PO DAILY [facility] Memantine (Namenda) 5 mg PO Q12 [facility] Last Admin: 01/02/19 21:00 Dose: 5 mg Pantoprazole Sodium (Protonix Ec Tab) 40 mg PO DAILY [facility] Last Admin: 01/02/19 09:05 Dose: 40 mg Risperidone (Risperdal Tab) 0.25 mg PO Q12 [facility] Last Admin: 01/02/19 21:00 Dose: 0.25 mg Tamsulosin HCl (Flomax) 0.4 mg PO QPM [facility] Last Admin: 01/02/19 17:04 Dose: 0.4 mg - Labs Labs: 01/01/19 05:16 01/03/19 04:30 PT 10.9 Seconds (9.8-13.1) 12/30/18 15:24 INR 1.0 12/30/18 15:24 APTT 32.8 Seconds (25.6-37.1) 12/30/18 15:24 - Head Exam Head Exam: NORMAL INSPECTION - Eye Exam Eye Exam: Normal appearance - Respiratory Exam Respiratory Exam: Clear to Ausculation Bilateral - Cardiovascular Exam Cardiovascular Exam: REGULAR RHYTHM - GI/Abdominal Exam GI & Abdominal Exam: Normal Bowel Sounds Assessment and Plan (1) Syncope Status: Acute (2) Dehydration Status: Acute (3) MRSA (methicillin resistant Staphylococcus aureus) infection Status: Acute (4) Physical debility Status: Acute (5) Dementia Status: Chronic (6) Parkinsons disease Status: Chronic (7) Hypertension Status: Acute - Assessment and Plan (Free Text) Plan: Cont meds Con ttx monitor labs cont meds telemetry
--- NOTE | 2019-01-03 06:47 | CP.PCM.PN ---
Subjective - Date & Time of Evaluation Date of Evaluation: 01/02/19 Time of Evaluation: 11:00 - Subjective Subjective: Patient is awake Has no chest pain or SOB Noted BP to be stable All lans are WNL. Objective - Vital Signs/Intake and Output Vital Signs (last 24 hours): Temp Pulse Resp BP Pulse Ox 97.8 F 74 20 130/72 99 01/03/19 05:20 01/03/19 05:20 01/03/19 05:20 01/03/19 05:20 01/03/19 05:20 - Medications Medications: Current Medications Carbidopa/Levodopa (Sinemet) 1 tab PO Q8 [facility] Last Admin: 01/03/19 01:36 Dose: 1 tab Donepezil HCl (Aricept) 5 mg PO HS [facility] Last Admin: 01/02/19 21:00 Dose: 5 mg Ergocalciferol (Drisdol 50,000 Intl Units Cap) 1 cap PO SUN [facility] Last Admin: 01/02/19 09:03 Dose: 1 cap Escitalopram Oxalate (Lexapro) 10 mg PO DAILY [facility] Last Admin: 01/02/19 09:03 Dose: 10 mg Ferrous Sulfate (Feosol) 325 mg PO BID [facility] Last Admin: 01/02/19 16:39 Dose: 325 mg Home Med (Linaclotide [Linzess]) 145 mcg PO DAILY [facility] Last Admin: 01/02/19 09:04 Dose: 145 mcg Sodium Chloride (Sodium Chloride 0.9%) 1,000 mls @ 80 mls/hr IV .[id number] [facility] Stop: 01/03/19 19:59 Last Admin: 01/02/19 20:50 Dose: 80 mls/hr Losartan Potassium (Cozaar) 50 mg PO DAILY [facility] Memantine (Namenda) 5 mg PO Q12 [facility] Last Admin: 01/02/19 21:00 Dose: 5 mg Pantoprazole Sodium (Protonix Ec Tab) 40 mg PO DAILY [facility] Last Admin: 01/02/19 09:05 Dose: 40 mg Risperidone (Risperdal Tab) 0.25 mg PO Q12 [facility] Last Admin: 01/02/19 21:00 Dose: 0.25 mg Tamsulosin HCl (Flomax) 0.4 mg PO QPM [facility] Last Admin: 01/02/19 17:04 Dose: 0.4 mg - Labs Labs: 01/01/19 05:16 01/03/19 04:30 PT 10.9 Seconds (9.8-13.1) 12/30/18 15:24 INR 1.0 12/30/18 15:24 APTT 32.8 Seconds (25.6-37.1) 12/30/18 15:24 - Head Exam Head Exam: NORMAL INSPECTION - Eye Exam Eye Exam: Normal appearance - ENT Exam ENT Exam: Mucous Membranes Moist - Respiratory Exam Respiratory Exam: Clear to Ausculation Bilateral - Cardiovascular Exam Cardiovascular Exam: REGULAR RHYTHM - GI/Abdominal Exam GI & Abdominal Exam: Normal Bowel Sounds - Neurological Exam Neurological Exam: Awake, Oriented x3 Assessment and Plan (1) Syncope Status: Acute (2) Dehydration Status: Acute (3) MRSA (methicillin resistant Staphylococcus aureus) infection Status: Acute (4) Physical debility Status: Acute (5) Dementia Status: Chronic (6) Parkinsons disease Status: Chronic (7) Hypertension Status: Acute - Assessment and Plan (Free Text) Plan: Con tmeds Cont tx Cont PT hydrate
[2019-01-03] MEDS: Pantoprazole 40 mg EC Tab PO SCH (09:58)
[2019-01-03] MEDS: Sodium Chloride 0.9% 1,000 ML IV SCH (10:00)
[2019-01-03 12:49] VITALS: BP 96/64; TEMP 97.4
[2019-01-03 14:13] VITALS: PULSE 70; O2SAT 100
--- NOTE | 2019-01-03 19:36 | CP.PCM.DIS ---
Provider - Provider Date of Admission: 12/30/18 13:49 Attending physician: Conner Modi MD Consults: 12/31/18 06:10 Wound Care [Nursing Referral for Wound Care] Routine Comment: Physician Instructions: Reason For Exam: sacral redness Time Spent in preparation of Discharge (in minutes): 30 Diagnosis - Discharge Diagnosis (1) Dehydration Status: Acute (2) Syncope Status: Acute Hospital Course - Lab Results Lab Results: Most Recent Lab Values WBC 4.9 K/uL (4.8-10.8) 01/01/19 05:16 RBC 2.57 Mil/uL (4.40-5.90) L 01/01/19 05:16 Hgb 11.2 g/dL (12.0-18.0) L 01/01/19 05:16 Hct 30.4 % (35.0-51.0) L 01/01/19 05:16 MCV 118.2 fl (80.0-94.0) H 01/01/19 05:16 MCH 43.4 pg (27.0-31.0) H 01/01/19 05:16 MCHC 36.7 g/dL (33.0-37.0) 01/01/19 05:16 RDW 14.7 % (11.5-14.5) H 01/01/19 05:16 Plt Count 249 K/uL (130-400) 01/01/19 05:16 MPV 9.0 fl (7.2-11.7) 12/31/18 05:00 Neut % (Auto) 63.4 % (50.0-75.0) 12/31/18 05:00 Lymph % (Auto) 25.3 % (20.0-40.0) 12/31/18 05:00 [place] % (Auto) 7.3 % (0.0-10.0) 12/31/18 05:00 Eos % (Auto) 2.8 % (0.0-4.0) 12/31/18 05:00 Baso % (Auto) 1.2 % (0.0-2.0) 12/31/18 05:00 Neut # (Auto) 2.9 K/uL (1.8-7.0) 12/31/18 05:00 Lymph # (Auto) 1.2 K/uL (1.0-4.3) 12/31/18 05:00 [place] # (Auto) 0.3 K/uL (0.0-0.8) 12/31/18 05:00 Eos # (Auto) 0.1 K/uL (0.0-0.7) 12/31/18 05:00 Baso # (Auto) 0.1 K/uL (0.0-0.2) 12/31/18 05:00 PT 10.9 Seconds (9.8-13.1) 12/30/18 15:24 INR 1.0 12/30/18 15:24 APTT 32.8 Seconds (25.6-37.1) 12/30/18 15:24 pO2 48 mm/Hg (30-55) 12/30/18 16:42 VBG pH 7.33 (7.32-7.43) 12/30/18 16:42 VBG pCO2 48 mmHg (40-60) 12/30/18 16:42 VBG HCO3 23.6 mmol/L 12/30/18 16:42 VBG Total CO2 26.8 mmol/L (22-28) 12/30/18 16:42 VBG O2 Sat (Calc) 88.3 % (40-65) H 12/30/18 16:42 VBG Base Excess -1.1 mmol/L (0.0-2.0) L 12/30/18 16:42 VBG Potassium 11.1 mmol/L (3.6-5.2) H* 12/30/18 16:42 Sodium 128.0 mmol/L (132-148) L 12/30/18 16:42 Chloride 108.0 mmol/L (98-107) H 12/30/18 16:42 Glucose 94 mg/dL (75-110) 12/30/18 16:42 Lactate 1.0 mmol/L (0.7-2.1) 12/30/18 16:42 FiO2 21.0 % 12/30/18 16:42 Crit Value Called To kinga Watson 12/30/18 16:42 Crit Value Called By 23 12/30/18 16:42 Crit Value Read Back Y 12/30/18 16:42 Blood Gas Notified Time 1645 12/30/18 16:42 Sodium 139 mmol/l (132-148) 01/03/19 04:30 Potassium 4.6 MMOL/L (3.6-5.0) 01/03/19 04:30 Chloride 108 mmol/L (98-107) H 01/03/19 04:30 Carbon Dioxide 23 mmol/L (22-30) 01/03/19 04:30 Anion Gap 13 (10-20) 01/03/19 04:30 BUN 28 mg/dl (9-20) H 01/03/19 04:30 Creatinine 1.4 mg/dl (0.8-1.5) 01/03/19 04:30 Est GFR ( Amer) 58 01/03/19 04:30 Est GFR (Non-Af Amer) 48 01/03/19 04:30 POC Glucose (mg/dL) 133 mg/dL (65-110) H 12/30/18 12:24 Random Glucose 87 mg/dL (75-110) 01/03/19 04:30 Calcium 8.0 mg/dL (8.4-10.2) L 01/03/19 04:30 Phosphorus 3.6 mg/dl (2.5-4.5) 12/30/18 12:25 Magnesium 2.2 MG/DL (1.6-2.3) 12/30/18 12:25 Total Bilirubin 0.9 mg/dl (0.2-1.3) 01/03/19 04:30 AST 22 U/L (17-59) 01/03/19 04:30 ALT 32 U/L (21-72) 01/03/19 04:30 Alkaline Phosphatase 62 U/L (38-126) 01/03/19 04:30 Total Creatine Kinase < 20 U/L (55-170) L 12/30/18 12:25 Troponin I < 0.0120 ng/mL (0.00-0.120) 12/30/18 12:25 Total Protein 6.7 G/DL (6.3-8.2) 01/03/19 04:30 Albumin 3.4 g/dL (3.5-5.0) L 01/03/19 04:30 Globulin 3.3 gm/dL (2.2-3.9) 01/03/19 04:30 Albumin/Globulin Ratio 1.0 (1.0-2.1) 01/03/19 04:30 Venous Blood Potassium 11.1 mmol/L (3.6-5.2) H* 12/30/18 16:42 Stool Occult Blood Negative (NEGATIVE) 12/30/18 17:05 Blood Type A POSITIVE 12/30/18 17:28 Antibody Screen Negative 12/30/18 17:28 BBK History Checked Patient has bt 12/30/18 17:28 - Hospital Course Hospital Course: 83 y/o male w/ hx of dementia and Parkinsons who was in TCU and was being arranged for discharge to home when he was noted to be hypotensive, then became unresponsive with drooling of the mouth. An GRAPHIC ART TECHNICIAN was callled and patient was responsive after GRAPHIC ART TECHNICIAN. There was no focal deficit noted. He was admitted to telemetry for further evaluation and management. Patient improved with treatment and was discharegd in stable condition. Discharge Exam - Head Exam Head Exam: NORMAL INSPECTION - Eye Exam Eye Exam: Normal appearance - Respiratory Exam Respiratory Exam: NORMAL BREATHING PATTERN - Cardiovascular Exam Cardiovascular Exam: +S1, +S2 - GI/Abdominal Exam GI & Abdominal Exam: Unremarkable - Back Exam Back exam: NORMAL INSPECTION - Neurological Exam Neurological exam: Alert, Oriented x3 - Psychiatric Exam Psychiatric exam: Normal Affect, Normal Mood - Skin Skin Exam: Normal Color, Warm Discharge Plan - Follow Up Plan Condition: FAIR Disposition: REHAB FACILITY/REHAB UNIT Instructions: Dehydration, Adult (DC), High Blood Pressure (DC), Syncope (F ainting) (DC) Referrals: Conner Modi MD [Staff Provider] -
== END 2019-01-03 14:00 | DRG 312 ==
LOC: H.ER 11:05 → OBSVTOIN 13:49 → H.ERHOLD 13:49 → H.TEL 23:19
PROVIDERS: ADMIT Family Medicine; ATTEND Family Medicine
DX: R55 Syncope and collapse (principal); E86.0 Dehydration; I95.9 Hypotension, unspecified; F02.80 Dementia in other diseases classified elsewhere, unspecified severity, without behavioral disturbance, psychotic disturbance, mood disturbance, and anxiety; G20 Parkinson's disease; I10 Essential (primary) hypertension; Z98.42 Cataract extraction status, left eye; Z98.41 Cataract extraction status, right eye; M19.90 Unspecified osteoarthritis, unspecified site; R32 Unspecified urinary incontinence; Z79.899 Other long term (current) drug therapy; R19.7 Diarrhea, unspecified; R41.82 Altered mental status, unspecified